=== PATIENT | female | born 1970 | race Caucasian/White ===

== ENCOUNTER 2016-07-16 03:19 | Emergency (ER) ==
[2016-07-16] MEDS ORDERED: ASPIRIN PO STA (03:36)
--- NOTE | 2016-07-16 03:42 | PROVIDER DOCUMENTATION ---
HPI-Chest Pain - General Chief Complaint: Chest Pain Stated Complaint: CHEST PAIN Time Seen by Provider: 07/16/16 03:23 Source: patient Allergies/Adverse Reactions: Patient Allergies Allergy/AdvReac Type Severity Reaction Status Date / Time No Known Allergies Allergy Verified 05/02/16 14:32 Home Medications: Cholecalciferol (Vitamin D3) [Vitamin D3] 800 unit PO DAILY 05/02/16 Clonazepam [Klonopin] 1 mg PO BID 05/02/16 Cyclobenzaprine [Flexeril] 10 mg PO HS 05/02/16 Dextroamphetamine/Amphetamine [Adderall 20 mg Tablet] 1 tab PO BID 05/02/16 Escitalopram [Lexapro] 20 mg PO DAILY 05/02/16 Fluticasone 50 Mcg Nasal [place] [Flonase] 1 puff INH PRN PRN 05/02/16 Gabapentin [Neurontin] 300 mg PO TID 05/02/16 Omeprazole [Prilosec] 20 mg PO DAILY@0700 05/02/16 Pramoxine HCl [Proctofoam] 1 appful ORDERED DIRECTED 05/02/16 - History of Present Illness-CP Nature of Presenting Problem: pt states she has had a dry hacky cough for about a week that hurt s her chest then tonight developed left arm pain and feeling like she could not get enough air. She has felt mildly nauseous but not currently. She has had subjective fevers. She also reports pain between her shoulder blades. Review of Systems - Adult - REVIEW OF SYSTEMS - ADULT Constitutional: reports: fever (subjective) Eyes: denies: dry eyes Ears, Nose, Mouth & Throat: denies: ear pain, sinus problem, throat pain Cardiovascular: reports: see HPI. denies: edema, irregular heart rate, orthopnea, palpitations, syncope Respiratory: reports: cough, shortness of breath. denies: excessive sputum production, pleurisy, wheezing Gastrointestinal: reports: nausea. denies: abdominal pain, diarrhea, vomiting Genitourinary: denies: dysuria, frequency, flank pain Musculoskeletal: reports: back pain (chronic lower back) Integumentary: denies: rash Neurological: denies: headache/migraines, numbness, paresthesia All Other Systems: Reviewed and Negative Past History - Adult - PAST MEDICAL HISTORY-ADULT Review of Records: reports: Old Records Reviewed, Nursing Assessment Review, Medications Reviewed, Social history reviewed & non-contributory. Obstetrical/Gynecological: reports: ovarian cysts Musculoskeletal: reports: other (herniated disk) - PRIOR SURGERIES/PROCEDURES Surgical/Procedure History: reports: hysterectomy, BTL, , other (cyst removed) - IMMUNIZATION STATUS Childhood Immunizations: See Nurse Assessment Flu Vaccine: See Nurse Assessment - FAMILY HISTORY Family History: reviewed, not pertinent Physical Exam-General - PHYSICAL EXAM-ADULT Initial Vital Signs Reviewed: Yes - CONSTITUTIONAL General Appearance: appears well, alert, no apparent distress - EYES Eyes: pink conjunctivae. negative: scleral icterus - HEAD, EARS, NOSE, MOUTH & THROAT HENMT: normocephalic/atraumatic - NECK Neck: non-tender, full range of motion, supple, normal inspection. negative: lymphadenopathy - RESPIRATORY Respiratory: chest non-tender, lungs clear, normal breath sounds, no pleuratic chest pain, no respiratory distress, no accessory muscle use - CARDIOVASCULAR Cardiovascular: regular rate, rhythm, no edema, no murmur - GASTROINTESTINAL (ABDOMEN) Abdominal Exam: normal bowel sounds, non tender, soft, no organomegaly, no pulsatile mass, other (obese) - MUSCULOSKELETAL Back Exam: normal inspection, no CVA tenderness, no vertebral tenderness Extremity: non-tender, normal inspection, no pedal edema, no calf tenderness - SKIN Integumentary: normal color, normal turgor, warm/dry - NEUROLOGIC Neurologic: grossly normal, no motor/sensory deficits - PSYCHIATRIC Psych/Mental Status: normal mood/affect, normal thought content, normal thought process, oriented x 3 Progress - PLAN OF CARE/RESULTS Progress/Plan/Lab Results: Laboratory Tests 07/16/16 07/16/16 07/16/16 03:25 03:25 03:25 WBC RBC Hgb Hct MCV MCH MCHC RDW Std Deviation Plt Count MPV Immature Gran % (Auto) Neut % (Auto) Lymph % (Auto) [place] % (Auto) Eos % (Auto) Baso % (Auto) Immature Gran # (Auto) Neut # (Auto) Lymph # (Auto) [place] # (Auto) Eos # (Auto) Baso # (Auto) PT INR APTT (Factor Assay) D-Dimer Sodium 137 Potassium 3.7 Chloride 100 Carbon Dioxide 27 Anion Gap 11 BUN 12 Creatinine 0.9 Estimated GFR/1.73 m2 > 60 BUN/Creatinine Ratio 13 Glucose 91 Calculated Osmolality 273 Calcium 9.3 Magnesium 2.0 Total Bilirubin 0.30 AST 17 ALT 22 Alkaline Phosphatase 72 Creatine Kinase 40 Troponin T < 0.010 Oxs-R-Yswmvupbsar Pept 53 Total Protein 7.3 Albumin 4.4 Globulin 3.0 Albumin/Globulin Ratio 2.0 07/16/16 07/16/16 07/16/16 03:25 03:25 05:24 WBC 14.35 H RBC 5.03 Hgb 15.0 Hct 45.5 MCV 90.5 MCH 29.8 MCHC 33.0 RDW Std Deviation 13.1 Plt Count 357 MPV 9.9 Immature Gran % (Auto) 1.0 H Neut % (Auto) 55.1 Lymph % (Auto) 33.7 [place] % (Auto) 9.2 Eos % (Auto) 0.7 Baso % (Auto) 0.3 Immature Gran # (Auto) 0.14 H Neut # (Auto) 7.92 H Lymph # (Auto) 4.83 H [place] # (Auto) 1.32 H Eos # (Auto) 0.10 Baso # (Auto) 0.04 PT 12.3 INR 0.88 APTT (Factor Assay) 30.0 D-Dimer < 0.22 L Sodium Potassium Chloride Carbon Dioxide Anion Gap BUN Creatinine Estimated GFR/1.73 m2 BUN/Creatinine Ratio Glucose Calculated Osmolality Calcium Magnesium Total Bilirubin AST ALT Alkaline Phosphatase Creatine Kinase 43 Troponin T Thh-I-Pvtfeiyqsuu Pept Total Protein Albumin Globulin Albumin/Globulin Ratio 07/16/16 05:24 WBC RBC Hgb Hct MCV MCH MCHC RDW Std Deviation Plt Count MPV Immature Gran % (Auto) Neut % (Auto) Lymph % (Auto) [place] % (Auto) Eos % (Auto) Baso % (Auto) Immature Gran # (Auto) Neut # (Auto) Lymph # (Auto) [place] # (Auto) Eos # (Auto) Baso # (Auto) PT INR APTT (Factor Assay) D-Dimer Sodium Potassium Chloride Carbon Dioxide Anion Gap BUN Creatinine Estimated GFR/1.73 m2 BUN/Creatinine Ratio Glucose Calculated Osmolality Calcium Magnesium Total Bilirubin AST ALT Alkaline Phosphatase Creatine Kinase Troponin T < 0.010 Fdz-A-Cyshcmavudi Pept Total Protein Albumin Globulin Albumin/Globulin Ratio Orders Category Date Time Status Cardiac Monitoring DIRECTED Care 07/16/16 03:36 Active Saline Loc NOW Care 07/16/16 03:36 Active CHEST-2 VIEWS [RAD] Stat Exams 07/16/16 03:36 Taken CBC WITH ELECTRONIC DIFF [HEME] Stat Lab 07/16/16 03:25 Completed CK PROFILE [SP CHEM] Stat Lab 07/16/16 03:25 Completed CK PROFILE [SP CHEM] Stat Lab 07/16/16 05:24 Completed COMPREHENSIVE METABOLIC PANEL [CHEM] Stat Lab 07/16/16 03:[address] D-DIMER [address] [COAG] Stat Lab 07/16/16 03:25 Completed MAGNESIUM [CHEM] Stat Lab 07/16/16 03:25 Completed PRO B-NATRIURETIC PEPTIDE Stat Lab 07/16/16 03:[address]IME WITH INR PL [COAG] Stat Lab 07/16/16 03:[address] [COAG] Stat Lab 07/16/16 03:25 Completed TROPONIN T Stat Lab 07/16/16 03:25 Completed TROPONIN T Stat Lab 07/16/16 05:24 Completed Aspirin Med 07/16/16 03:36 Discontinued 325 mg PO STAT STA Codeine/Promethazine [Phenergan with Codeine Liquid] Med 07/16/16 05:55 Discontinued 10 ml PO NOW ONE EKG [EKG] Stat Ther 07/16/16 05:28 Ordered Vital Signs Temp Pulse Resp BP Pulse Ox 07/16/16 03:25 98.2 F 102 H 18 136/108 99 No Known Allergies Allergy (Verified 05/02/16 14:32) Cholecalciferol (Vitamin D3) [Vitamin D3] 800 unit PO DAILY 05/02/16 Clonazepam [Klonopin] 1 mg PO BID 05/02/16 Cyclobenzaprine [Flexeril] 10 mg PO HS 05/02/16 Dextroamphetamine/Amphetamine [Adderall 20 mg Tablet] 1 tab PO BID 05/02/16 Escitalopram [Lexapro] 20 mg PO DAILY 05/02/16 Fluticasone 50 Mcg Nasal [place] [Flonase] 1 puff INH PRN PRN 05/02/16 Gabapentin [Neurontin] 300 mg PO TID 05/02/16 Omeprazole [Prilosec] 20 mg PO DAILY@0700 05/02/16 Pramoxine HCl [Proctofoam] 1 appful ORDERED DIRECTED 05/02/16 Laboratory 07/16/16 07/16/16 07/16/16 05:24 05:24 03:25 WBC RBC Hgb Hct MCV MCH MCHC RDW Std Deviation Plt Count MPV Immature Gran % (Auto) Neut % (Auto) Lymph % (Auto) [place] % (Auto) Eos % (Auto) Baso % (Auto) Immature Gran # (Auto) Neut # (Auto) Lymph # (Auto) [place] # (Auto) Eos # (Auto) Baso # (Auto) PT 12.3 INR 0.88 APTT (Factor Assay) 30.0 D-Dimer < 0.22 L Sodium Potassium Chloride Carbon Dioxide Anion Gap BUN Creatinine Estimated GFR/1.73 m2 BUN/Creatinine Ratio Glucose Calculated Osmolality Calcium Magnesium Total Bilirubin AST ALT Alkaline Phosphatase Creatine Kinase 43 Troponin T < 0.010 Jbq-Z-Thawafapdkq Pept Total Protein Albumin Globulin Albumin/Globulin Ratio 07/16/16 07/16/16 07/16/16 03:25 03:25 03:25 WBC 14.35 H RBC 5.03 Hgb 15.0 Hct 45.5 MCV 90.5 MCH 29.8 MCHC 33.0 RDW Std Deviation 13.1 Plt Count 357 MPV 9.9 Immature Gran % (Auto) 1.0 H Neut % (Auto) 55.1 Lymph % (Auto) 33.7 [place] % (Auto) 9.2 Eos % (Auto) 0.7 Baso % (Auto) 0.3 Immature Gran # (Auto) 0.14 H Neut # (Auto) 7.92 H Lymph # (Auto) 4.83 H [place] # (Auto) 1.32 H Eos # (Auto) 0.10 Baso # (Auto) 0.04 PT INR APTT (Factor Assay) D-Dimer Sodium Potassium Chloride Carbon Dioxide Anion Gap BUN Creatinine Estimated GFR/1.73 m2 BUN/Creatinine Ratio Glucose Calculated Osmolality Calcium Magnesium Total Bilirubin AST ALT Alkaline Phosphatase Creatine Kinase Troponin T < 0.010 Ryv-U-Dcqgxaiymop Pept 53 Total Protein Albumin Globulin Albumin/Globulin Ratio 07/16/16 03:25 WBC RBC Hgb Hct MCV MCH MCHC RDW Std Deviation Plt Count MPV Immature Gran % (Auto) Neut % (Auto) Lymph % (Auto) [place] % (Auto) Eos % (Auto) Baso % (Auto) Immature Gran # (Auto) Neut # (Auto) Lymph # (Auto) [place] # (Auto) Eos # (Auto) Baso # (Auto) PT INR APTT (Factor Assay) D-Dimer Sodium 137 Potassium 3.7 Chloride 100 Carbon Dioxide 27 Anion Gap 11 BUN 12 Creatinine 0.9 Estimated GFR/1.73 m2 > 60 BUN/Creatinine Ratio 13 Glucose 91 Calculated Osmolality 273 Calcium 9.3 Magnesium 2.0 Total Bilirubin 0.30 AST 17 ALT 22 Alkaline Phosphatase 72 Creatine Kinase 40 Troponin T Kzj-I-Gcmiiscnjrl Pept Total Protein 7.3 Albumin 4.4 Globulin 3.0 Albumin/Globulin Ratio 2.0 - EKG 1 Time of EKG reading by physician:: 03:25 EKG Interpretation (*Must complete 3 of following elements*): Abnormal Rate: 111 Rhythm: sinus tach [place]: normal QRS: poor R wave progression NE Interval: normal ST Wave: normal Departure - Departure Time of Disposition Order: 05:56 DIAGNOSIS: URI (upper respiratory infection) Qualifiers: URI type: unspecified viral URI Qualified Code(s): J06.9 - Acute upper respiratory infection, unspecified; B97.89 - Other viral agents as the cause of diseases classified elsewhere Disposition: HOME 01 Certified Medical Emergency: Emergent Condition: Good Additional Instructions: ED Follow Up Instructions: You have been treated by a care provider in the Emergency Department. These instructions are being provided to you so you can have an understanding of how to care for yourself upon discharge. Upon discharge from the Emergency Department, you are responsible for making arrangements for follow-up care by a physician of your choice. Take all prescribed medications as directed. Return to the Emergency Department immediately for any new or worsening symptoms. You may call the Physician Referral phone number at [phone] to obtain a list of Physicians who are taking new patients. Prescriptions: Codeine/Promethazine [Phenergan with Codeine] 10 ml PO TID PRN PRN #120 ml PRN Reason: Cough
[2016-07-16 03:43] LABS: MANUAL DIFF NEEDED? NO
[2016-07-16 04:02] LABS: BASO% 0.3 % (0.0-0.8); EOS% 0.7 % (0.0-10.0); HEMATOCRIT 45.5 % (37.0-47.0); IMM GRAN# 0.14 X1000 (0.0-0.04); LYMPH# 4.83 X1000 (1.2-3.4); LYMPH% 33.7 % (20.5-51.1); MCH 29.8 PG (27-31); MCV 90.5 FL (81-99); MONO# 1.32 X1000 (0.11-0.59); MONO% 9.2 % (1.7-9.3); MPV 9.9 FL (7.4-10.4); NEUT% 55.1 % (42.2-75.2); PLT 357 X1000 (130-400); RBC 5.03 XMIL (4.2-5.4)
[2016-07-16 04:03] LABS: INR 0.88 (0.86-1.15); PROTIME 12.3 Seconds (12.1-15.5)
[2016-07-16 04:08] LABS: AGAP 11; ALBUMIN 4.4 g/dL (3.5-5.0); ALKALINE PHOSPHATASE 72 U/L (32-104); BUN 12 mg/dL (8-22); CALCIUM 9.3 mg/dL (8.8-10.2); CHLORIDE 100 mmol/L (98-107); CK PROFILE 40 U/L (24-173); COSMO 273; GOT 17 U/L (10-30); GPT 22 U/L (10-36); POTASSIUM 3.7 mmol/L (3.5-5.1); SODIUM 137 mmol/L (136-145); TCO2 27 mmol/L (25-35); TOTAL PROTEIN 7.3 g/dL (6.3-8.3)
[2016-07-16] MEDS ORDERED: PHENERGAN WITH CODEINE LIQUID PO ONE (05:55)
--- NOTE | 2016-07-16 06:08 | EKG Report ---
Test Performed on : 07/16/2016 03:25:39 AM Test Reason : ER10 Blood Pressure : / mmHG Vent. Rate : 111 BPM Atrial Rate : 111 BPM P-R Int : 138 ms QRS Dur : 072 ms QT Int : 306 ms P-R-T Axes : 046 048 047 degrees QTc Int : 416 ms Sinus tachycardia. Septal infarct , age undetermined Abnormal ECG No previous ECGs available Unconfirmed Result
[2016-07-16 06:16] VITALS: BP 105/072
--- NOTE | 2016-07-16 11:36 | Diag Imaging Result Document ---
PROCEDURE NAME: CHEST-2 VIEWS - 07/16/2016 PA AND LATERAL RADIOGRAPH OF THE CHEST: COMPARISON: None available. FINDINGS: The lungs are grossly clear. There is no discrete pleural fluid collection or evidence of pneumothorax. The cardiomediastinal silhouette and upper airway are grossly unremarkable. IMPRESSION: No evidence of acute chest pathology.
== END 2016-07-16 06:15 | disposition home or self-care (01) ==
LOC: P.ED 03:19
DX: J06.9 Acute upper respiratory infection, unspecified (principal); R05 Cough; R94.31 Abnormal electrocardiogram [ECG] [EKG]; R50.9 Fever, unspecified; R06.02 Shortness of breath; R11.0 Nausea; M54.9 Dorsalgia, unspecified; G89.29 Other chronic pain; Z87.42 Personal history of other diseases of the female genital tract; M51.26 Other intervertebral disc displacement, lumbar region; Z79.899 Other long term (current) drug therapy; Z79.51 Long term (current) use of inhaled steroids
CPT/HCPCS: 36415; 71020; 80053; 82550; 83735; 83880; 84484; 85025; 85379; 85610; 85730; 93005; 99284

== ENCOUNTER 2018-12-18 17:43 | Inpatient (IN) ==
[2018-12-18] MEDS ORDERED: DIPRIVAN 1% 1,000 MG/100 ML BOTTLE ONE (17:49)
[2018-12-18] MEDS ORDERED: QUELICIN ONE (17:50)
[2018-12-18] MEDS ORDERED: AMIDATE ONE (17:50)
[2018-12-18] MEDS ORDERED: NS 1,000 ML ONE ×2 (17:52→17:54)
[2018-12-18] MEDS ORDERED: NS 1,000 ML IV ONE (18:03)
[2018-12-18 18:23] LABS: BE -3.7 mmoll (-3.0-3.0); BLOOD TYPE ARTERIAL; METHB 1.2 % (0.0-1.5); O2(CT) 18.8 mL/dL (15.0-23.0); O2HB 95.4 % (95.0-99.0); PO2(98.6) 88 mmHg (60-100); SAMPLE BLOOD; SAO2 97.9 % (95.0-100.0); SRATE 15 BPM; TVOL 450 mL
[2018-12-18 18:24] LABS: URINE SOURCE CATH
[2018-12-18 18:24] LABS: ALLEN TEST YES
[2018-12-18 18:31] LABS: MODALITY VENTILATOR; PCO2(98.6) 68 mmHg (35-45); pH(98.6) 7.19 (7.35-7.45)
[2018-12-18 18:53] LABS: BILIRUBIN URINE NEGATIVE (NEGATIVE); BLOOD URINE NEGATIVE (NEGATIVE); COLOR YELLOW; GLUCOSE URINE >1000 mg/dL (NEGATIVE); KETONE URINE NEGATIVE (NEGATIVE); LEUKOCYTES URINE NEGATIVE (NEGATIVE); NITRITE URINE NEGATIVE (NEGATIVE); PROTEIN URINE 30 mg/dL (NEGATIVE); SP GRAVITY URINE 1.015; TURBIDITY URINE CLEAR (CLEAR); UROBILINOGEN URINE NORMAL (NORMAL)
[2018-12-18 18:54] LABS: UR EPITHELIAL CELLS <10 /HPF (<10); URINE BACTERIA NEGATIVE /HPF; URINE RBC <10 /HPF (<10); URINE WBC <10 /HPF (<10)
[2018-12-18 18:56] LABS: BASO# 0.04 X1000 (0.0-0.2); BASO% 0.2 % (0.0-0.8); EOS# 0.04 X1000 (0.0-0.7); EOS% 0.2 % (0.0-10.0); HEMATOCRIT 43.4 % (37.0-47.0); HEMOGLOBIN 14.1 g/dL (12.0-16.0); IMM GRAN# 0.63 X1000 (0.0-0.04); IMM GRAN% 2.8 % (0.0-0.5); LYMPH# 1.81 X1000 (1.2-3.4); LYMPH% 7.9 % (20.5-51.1); MCH 29.6 PG (27-31); MCHC 32.5 g/dL (33-37); MONO# 2.79 X1000 (0.11-0.59); MONO% 12.2 % (1.7-9.3); NEUT# 17.56 X1000 (1.4-6.5); NEUT% 76.7 % (42.2-75.2); PLT 400 X1000 (130-400); RBC 4.77 XMIL (4.2-5.4); RDW 12.8 % (11.5-14.5); WBC 22.87 X1000 (4.8-10.8)
[2018-12-18 19:51] LABS: ALB/GLOB RATIO 1.7; ALBUMIN 3.9 g/dL (3.5-5.0); CALCIUM 8.1 mg/dL (8.8-10.2); CREATININE 1.2 mg/dL (0.5-0.9); POTASSIUM 3.7 mmol/L (3.5-5.1); TOTAL BILIRUBIN 0.34 mg/dL (0.20-1.00); TOTAL PROTEIN 6.2 g/dL (6.3-8.3)
[2018-12-18] MEDS ORDERED: ROCEPHIN 1 GM in NS 50 ML IV ONE (19:52)
--- NOTE | 2018-12-18 20:48 | Diag Imaging Result Doc PS360 ---
EXAM: CT HEAD W/O CONTRAST INDICATION: found unresponsive TECHNIQUE: This exam was performed using automated exposure control, adjustment of mA or kV according to patient size, and/or use of iterative reconstruction technique. COMPARISON: None. FINDINGS: There is no definite acute infarct given the limited sensitivity of CT versus MRI. There is no discrete intracranial mass, mass effect, or intracranial hemorrhage. The surrounding soft tissues and bony structures are essentially unremarkable. IMPRESSION: No evidence of acute intracranial pathology. Electronically signed by Lucio Porras 12/18/2018 8:46 PM
[2018-12-18] MEDS ORDERED: D50W SYRINGE IV ONE ×2 (20:53→21:30)
[2018-12-18 21:41] LABS: ALLEN TEST YES; BE -3.8 mmoll (-3.0-3.0); BLOOD TYPE ARTERIAL; METHB 0.9 % (0.0-1.5); O2(CT) 19.4 mL/dL (15.0-23.0); O2HB 97.5 % (95.0-99.0); PCO2(98.6) 39 mmHg (35-45); PO2(98.6) 189 mmHg (60-100); SAMPLE BLOOD; SAO2 99.9 % (95.0-100.0); SRATE 22 BPM; THB 13.9 g/dL (11.5-17.4); TVOL 550 mL; pH(98.6) 7.35 (7.35-7.45)
[2018-12-18 21:42] LABS: MODALITY VENTILATOR
[2018-12-18 21:56] LABS: UR AMPHETAMINES QUAL NONE DETECTED (NONE DETECT); UR BARBITUATES QUAL NONE DETECTED (NONE DETECT); UR BENZODIAZEPIN QUAL PRESUMPTIVE POSITIVE (NONE DETECT); UR CANNABINOIDS QUAL NONE DETECTED (NONE DETECT); UR COCAINE QUAL NONE DETECTED (NONE DETECT); UR METHADONE QUAL NONE DETECTED (NONE DETECT); UR OPIATES QUAL NONE DETECTED (NONE DETECT); UR OXYCODONE QUAL PRESUMPTIVE POSITIVE (NONE DETECT); UR PCP QUAL NONE DETECTED (NONE DETECT)
[2018-12-18] MEDS ORDERED: SODIUM CHLORIDE 0.9% INJ SCH (22:00)
[2018-12-18] MEDS: LOVENOX SUBQ SCH (23:01)
[2018-12-18] MEDS: ZOSYN 3.375 GM in NS 50 ML IV SCH (23:01)
[2018-12-18] MEDS: PROTONIX IV SCH (23:01)
[2018-12-18] MEDS: ZYVOX 600 MG/D5W 600 MG/300 ML IVPB IV SCH (23:02)
[2018-12-18] MEDS: NS 1,000 ML IV SCH (23:02)
[2018-12-18] MEDS: DUONEB (A & A) INH SCH (23:30)
--- NOTE | 2018-12-18 23:53 | HISTORY AND PHYSICAL ---
CHIEF COMPLAINT: Altered mental status. HISTORY OF PRESENT ILLNESS: Mrs. Binta Horn is a 48-year-old female who has a history of back pain and was found unresponsive at home on the bed by earlier on today, between 3 and 5 p.m. The patient was subsequently brought to the emergency room. CT scan of the brain was noted to be unremarkable for any acute lesions. Her white count was elevated at 22.87. Initial pH shows that of 7.19. The patient was intubated and placed on mechanical ventilation. Urine drug screen was positive for oxycodone as well as benzodiazepines. No information could be obtained from the patient. PAST MEDICAL HISTORY: Back pain. ALLERGIES: No known drug allergies. PAST SURGICAL HISTORY: She has had a hysterectomy. SOCIAL HISTORY: No cigarette smoking, alcohol, or drug use. MEDICATIONS: 1. Vitamin D 400 units as directed. 2. Klonopin 1 mg as directed. 3. Codeine/promethazine 5 mL as directed. 4. Cyclobenzaprine 10 mg p.o. as directed. 5. Dextroamphetamine/amphetamine 20 mg as directed. 6. Lexapro 20 mg p.o. as directed. 7. Flonase as directed. 8. Gabapentin 300 mg as directed. 9. Omeprazole 20 mg as directed. 10. Pramoxine 15 g as directed. REVIEW OF SYSTEMS: Could not be obtained from the patient. PHYSICAL EXAMINATION: VITAL SIGNS ARE FOLLOWS: Temperature 98.1 degrees, pulse 122, respirations 14, blood pressure 131/78, oxygen saturation 100%. HEENT: Atraumatic, normocephalic. She is anicteric. Pupils are equal, poorly reactive to light. NECK: No lymphadenopathy or thyromegaly. She does have an NG tube as well as an ET tube. CARDIOVASCULAR: S1, S2. RESPIRATORY: Has evidence of good entry bilaterally. ABDOMEN: Soft, nontender. No masses felt. EXTREMITIES: No evidence of edema. CENTRAL NERVOUS SYSTEM: The patient is currently intubated as well as sedated. LABORATORY DATA: WBC is 22.87, hematocrit is 43.2, platelet count of 400,000. ABG with pH 7.19, 68, 88, O2 saturation of 97.9%. Sodium is 140, potassium 3.7, chloride is 105, bicarb 27, BUN is 12, creatinine 1.2. AST is 60, ALT 58. ProBNP 1380. Urine drug screen positive for oxycodone as well as benzodiazepine. Head CT, no acute intracranial process. ASSESSMENT AND PLAN: This is a 48-year-old female who was found unresponsive at home, was subsequently brought to the emergency room. CT scan of the brain unremarkable for any acute lesions. 1. Encephalopathy. Query etiology. Rule out toxic. The patient's drug screen positive for oxycodone as well as benzodiazepines. Infectious etiology is also possible in light of raised white count and also raised lactate level. In the meantime, we will obtain an MRI of the brain, EEG, ammonia level, as well as a thyroid function test. Consult with Neurology. 2. Probable sepsis. Maintain patient on intravenous fluids. Obtain cultures and place patient on broad-spectrum antibiotics. 3. Respiratory failure. Maintain patient on ventilator support. Ventilator changes per recommendation of the Pulmonary team. Use of propofol for sedation. 4. Elevated troponin. This may be related to demand ischemia, however, cannot rule out non-ST segment elevation myocardial infarction. Will consult with Cardiology. 5. Raised proBNP level. Obtain 2D echo of the heart to assess current ejection fraction. 6. Abnormal liver function test. Check hepatitis panel, TEO level, ferritin level as well as abdominal ultrasound. 7. Deep vein thrombosis prophylaxis. The patient is on Lovenox. 8. Gastrointestinal prophylaxis. Proton pump inhibitor. cc: Shahzad Herman MD
[2018-12-19] MEDS: DIPRIVAN 1% 1,000 MG/100 ML BOTTLE IV SCH ×3 (00:28→09:35)
[2018-12-19] MEDS: ZOSYN 3.375 GM in NS 50 ML IV SCH ×4 (02:55→22:40)
[2018-12-19 04:35] LABS: BLOOD TYPE ARTERIAL; SAMPLE BLOOD
[2018-12-19 04:36] LABS: ALLEN TEST YES; BE 0.2 mmoll (-3.0-3.0); HCO3-(ACT) 25.1 mmoll (20.0-26.0); METHB 1.1 % (0.0-1.5); O2HB 96.8 % (95.0-99.0); PCO2(98.6) 34 mmHg (35-45); PO2(98.6) 117 mmHg (60-100); SAO2 99.1 % (95.0-100.0); SRATE 18 BPM; THB 14.6 g/dL (11.5-17.4); TVOL 550 mL; pH(98.6) 7.45 (7.35-7.45)
[2018-12-19 04:38] LABS: MODALITY VENTILATOR
[2018-12-19 05:01] LABS: BASO# 0.02 X1000 (0.0-0.2); BASO% 0.1 % (0.0-0.8); HEMATOCRIT 39.4 % (37.0-47.0); HEMOGLOBIN 13.2 g/dL (12.0-16.0); IMM GRAN# 0.07 X1000 (0.0-0.04); IMM GRAN% 0.4 % (0.0-0.5); LYMPH# 2.15 X1000 (1.2-3.4); LYMPH% 12.6 % (20.5-51.1); MCH 29.4 PG (27-31); MCHC 33.5 g/dL (33-37); MCV 87.8 FL (81-99); MONO# 1.83 X1000 (0.11-0.59); MONO% 10.7 % (1.7-9.3); MPV 11.1 FL (7.4-10.4); NEUT# 13.06 X1000 (1.4-6.5); NEUT% 76.2 % (42.2-75.2); PLT 311 X1000 (130-400); RBC 4.49 XMIL (4.2-5.4); RDW 12.5 % (11.5-14.5); WBC 17.13 X1000 (4.8-10.8)
[2018-12-19 05:37] LABS: AGAP 11; ALB/GLOB RATIO 1.2; ALBUMIN 3.2 g/dL (3.5-5.0); ALKALINE PHOSPHATASE 65 U/L (32-104); BUN 13 mg/dL (8-22); CALCIUM 8.2 mg/dL (8.8-10.2); CHLORIDE 103 mmol/L (98-107); CHOLESTEROL 132 mg/dL (0-200); COSMO 272; CREATININE 0.8 mg/dL (0.5-0.9); ESTIMATED GFR > 60; GLUCOSE 105 mg/dL (70-104); GOT 60 U/L (10-30); GPT 53 U/L (10-36); HDL 39 mg/dL (45-65); LDL 54 mg/dL; POTASSIUM 4.7 mmol/L (3.5-5.1); SODIUM 136 mmol/L (136-145); TCO2 22 mmol/L (25-35); TOTAL BILIRUBIN 0.57 mg/dL (0.20-1.00); TOTAL PROTEIN 5.8 g/dL (6.3-8.3); TRIGLYCERIDES 193 mg/dL (35-135); VLDL 39 mg/dL
--- NOTE | 2018-12-19 07:42 | Diag Imaging Result Doc PS360 ---
CHEST-1 VIEW - 12/19/2018 INDICATION: sepsis COMPARISON: 12/18/2018 FINDINGS: Stable endotracheal tube at about T1-T2. Stable nasogastric tube in good position in the stomach. Stable low lung volumes. Stable cardiomegaly. Slight worsening hazy infiltrate in the left lung base. IMPRESSION: Slight worsening hazy infiltrate in the left lung base. Electronically signed by Sachin Ta 12/19/2018 7:39 AM
[2018-12-19] MEDS: DUONEB (A & A) INH SCH ×5 (07:47→23:50)
--- NOTE | 2018-12-19 08:55 | Diag Imaging Result Doc PS360 ---
EXAM: CHEST-PORTABLE INDICATION: respiratory distress, wheezing TECHNIQUE: 2 views COMPARISON: 07/16/2016 FINDINGS: The NG tube projects well below the diaphragm and is assumed to be in the lumen of the stomach in expected position. The newly placed ET tube tip projects over the trachea at about the thoracic inlet. Consider advancing 3 to 4 cm. The lungs are grossly clear. There is no discrete pleural fluid collection or pneumothorax. The cardiomediastinal silhouette and central vasculature are grossly unremarkable. IMPRESSION: 1.ET tube tip near the thoracic inlet. Consider advancing 3 to 4 cm. 2.NG tube in expected position. 3.No definite acute chest pathology by plain radiograph. Electronically signed by Lucio Porras 12/18/2018 8:44 PM
[2018-12-19] MEDS: ASPIRIN NG SCH (09:51)
[2018-12-19] MEDS: LOVENOX SUBQ SCH ×2 (09:51→22:55)
[2018-12-19 10:26] LABS: ALLEN TEST YES; BLOOD TYPE ARTERIAL; HCO3-(ACT) 24.9 mmoll (20.0-26.0); METHB 0.8 % (0.0-1.5); O2(CT) 18.4 mL/dL (15.0-23.0); O2HB 97.4 % (95.0-99.0); PCO2(98.6) 49 mmHg (35-45); PO2(98.6) 111 mmHg (60-100); SAMPLE BLOOD; SAO2 100.1 % (95.0-100.0); THB 13.3 g/dL (11.5-17.4); pH(98.6) 7.34 (7.35-7.45)
[2018-12-19 10:29] LABS: MODALITY VENTILATOR
[2018-12-19] MEDS: ZYVOX 600 MG/D5W 600 MG/300 ML IVPB IV SCH (10:58)
[2018-12-19] MEDS: NS 1,000 ML IV SCH ×2 (11:00→18:07)
--- NOTE | 2018-12-19 12:48 | CONSULTATION ---
DATE OF CONSULTATION: 12/19/2018 HISTORY OF PRESENT ILLNESS: Ms. Horn is 48 years old and she was reportedly found unresponsive by family, brought to the emergency room, evaluated and admitted. I have reviewed the history recorded on admission. I did not think it prudent for me to question Ms. Horn directly on my rounds today in light of the different family members present at the bedside. She initially required intubation and mechanical ventilation, and was sedated with propofol. When propofol was discontinued, she became rapidly awake and alert. There was never any focal neurologic finding. LABS AND X-RAYS: Noncontrast CT of the head was unremarkable. Lab showed initial WBC 23,000, later 17,000. Blood sugar was recorded 42 and then 105. Liver enzymes are elevated. PCO2 was initially 68, later 34. Urine drug screen was positive for oxycodone and for benzodiazepines. She has a prescription for clonazepam and has been using that chronically. Home medication list also includes Adderall, but urine drug screen was negative for amphetamine. Her home medication list includes codeine cough syrup, but no other opiate and specifically no oxycodone. State PDMP [place] not show any opiate prescriptions, including no prescription for codeine cough syrup, in the past year. I believe that EEG and MRI are planned. PHYSICAL EXAMINATION: On my exam, she is awake, alert, attentive, oriented and appropriate. Speech is not dysarthric. Language function is intact on bedside testing. Recent and remote memory are good. I did not test her cognitive function further. Head and neck are unremarkable. There is no meningismus. She has full visual chandler tested grossly by confrontational finger counting. Extraocular movements are full. Pupils react to light. Facial motility is symmetric. Facial sensation is intact. Tongue is midline. Shoulder shrug is good. Strength is normal in the arms and legs. Limb tone is symmetric. Plantar response is silent bilaterally. Reflexes are 2+ at the ankles and 3+ at knees bilaterally. She reports diminished pinprick appreciation diffusely, but she has good light touch appreciation over all limbs. Proprioception is good at the great toe MTP joint bilaterally. IMPRESSION: Transient altered awareness, uncertain etiology. This may have been drug effect. Elevated liver enzymes makes me wonder if some of this might be chronic. Again, I did not ask her specifically about prescription and/or illicit drug use. In light of her quick recovery and normal neurologic appearance now, I do not think we need to do anything urgently. If there are no surprises on the already-ordered workup, I will not have any new suggestion from Neurology standpoint. Thanks for asking Neurology to see Ms. Horn. cc: MD FAVIOLA Acuna III
--- NOTE | 2018-12-19 13:14 | CONSULTATION ---
DATE OF CONSULTATION: 12/19/2018 IMPRESSION: 1. Slight nonspecific elevation in troponin in setting of respiratory failure. Doubt acute coronary syndrome, and I suspect slight elevation in troponin more likely related to hypoxemic respiratory failure requiring intubation related to excessive sedative medications, although sepsis is not excluded. 2. Suspected sepsis. 3. Chronic pain syndrome with chronic back discomfort. RECOMMENDATIONS: 1. Echocardiography. 2. Consider future screen for coronary disease in light of clinical presentation. However, clinical presentation very typical for coronary syndrome and more likely related to hypoxemic respiratory failure of noncardiac etiology. HISTORY: This 48-year-old white female with past history of chronic back disorder and chronic back pain was recently admitted after being found unresponsive at home. She is described as having very slow shallow respirations. EMS was summoned. She required intubation. Patient has little recollection of what actually went on. There has been no chest pain. She had CT of the brain which showed no acute abnormalities on noncontrasted study. White blood cell count was elevated at 22.87. She was treated with ventilator support. Initial pH was 7.19. She has just been extubated. Serial troponins were slightly elevated prompting Cardiology consultation. There is no history of coronary disease or chest pain. PAST MEDICAL HISTORY: 1. Chronic back disorder with chronic back pain. 2. Depression. 3. Obesity. 4. Gastroesophageal reflux disease. PAST SURGICAL HISTORY: Hysterectomy. ALLERGIES: She has no known drug allergies. MEDICATIONS PRIOR TO ADMISSION: As listed. SOCIAL HISTORY: She does not smoke cigarettes or use alcohol. FAMILY HISTORY: Negative for premature coronary disease. REVIEW OF SYSTEMS: Pulmonary: Noncontributory beyond history of present illness. Gastrointestinal: Noncontributory beyond history of present illness. Constitutional: Noncontributory beyond history of present illness. Remainder of review of systems negative/noncontributory beyond history of present illness with 14 total systems reviewed. PHYSICAL EXAMINATION: General: This is an obese middle-aged female in no distress. Vital signs: Blood pressure 147/104, heart rate 93, oxygen saturation 99%. HEENT exam: Extraocular movements intact. Mucous membranes are moist. Neck: Supple. No jugular venous distention. No carotid bruits. Chest: Clear to auscultation. Cardiac Exam: Reveals a regular rate and rhythm without appreciable murmur or gallop. Abdomen: Soft. Bowel sounds are normal. Extremities: Without edema. Neurologic exam: Reveals her to be awake, but mildly drowsy. She is responsive. Speech is fluent. She moves all 4 extremities equally well. PERTINENT DATA: Twelve-lead EKG demonstrates sinus tachycardia, but is otherwise within normal limits. LABORATORY DATA: Includes a white blood cell count of 17.13, hematocrit 39.4, hemoglobin 13.2, platelet count 311. Sodium 136, potassium 4.7, chloride 103, carbon dioxide 22. BUN 13, creatinine 0.8, glucose 105. Initial troponin 0.051, followup troponin 0.102, and third troponin 0.101. Initial CPK 59 with followup CPK 79. Urine drug screen positive for oxycodone and benzodiazepines. cc: Marcio Ordonez MD
--- NOTE | 2018-12-19 16:08 | Diag Imaging Result Doc PS360 ---
EXAM: US ABDOMEN-COMPLETE 12/19/2018 HISTORY: abnormal lfts TECHNIQUE: Abdominal ultrasound COMMENT: The visualized portions of the aorta and inferior vena cava are within normal limits. The liver is slightly hyperechoic. There is antegrade flow in the portal vein. There is no evidence of biliary dilatation the common bile duct measuring 4 mm. The gallbladder is clear and nontender. The spleen is not enlarged. There is no evidence of free fluid. The left kidney is not well seen. The right kidney is without evidence of hydronephrosis or mass. IMPRESSION: Limited study due to the patient's condition. Hepatic steatosis. Electronically signed by Alexis Bui 12/19/2018 4:06 PM
--- NOTE | 2018-12-19 16:23 | ECHO REPORT ---
ORDER DATE: 12/18/2018 INTERPRETING PHYSICIAN: Dr. Glover CLINICAL INDICATIONS: Sepsis. Non ST myocardial infarction. CHF. M-MODE MEASUREMENTS: Left ventricle end diastole: 4.3 cm. Left ventricle end systole: 3.1 cm. Posterior wall: 0.9 cm. Interventricular septum: 1.0 cm. SUMMARY OF 2-DIMENSIONAL IMAGIN. The left ventricular function is mild to moderately impaired. Global ejection fraction appears to be in the order of 40% to 45%. The lateral septal apical portion showed reasonably good contractility. The basal interventricular septum, mid interventricular septum is slightly hypokinetic. The basal inferior wall is akinetic as well as the distal inferior wall. This wall motion abnormality is diagnostic of coronary heart disease. 2. The right ventricle appears to be mildly enlarged. 3. The tricuspid valve shows moderate degree of regurgitation. 4. The pulmonary pressure is estimated at 28 mmHg. 5. The right ventricle being hypokinetic with tricuspid regurgitation may suggest ischemic compromise of the right ventricle. 6. The pulmonic valve appears to be grossly unremarkable. 7. The mitral valve shows mild degree of regurgitation. 8. Pulsed wave Doppler of mitral inflow shows reversal of the E and the A ratio. Ratio is 0.5. 9. Tissue Doppler of septal and lateral mitral annulus averages 3 1/2 cm. 10.Aortic valve shows normal opening of the cusps. Color flow mapping is unremarkable. 11.There is no pericardial effusion, no mass, and no thrombus. Clinical correlation is recommended. cc: MD Shahzad Perry MD
[2018-12-19] MEDS ORDERED: LABETALOL IV PRN (16:44)
[2018-12-19] MEDS ORDERED: VANCOMYCIN IV PER PHARMACY MISC SCH (16:45)
[2018-12-19] MEDS: MORPHINE IV PRN ×2 (17:01→20:46)
--- NOTE | 2018-12-19 17:02 | PROGRESS NOTE ---
DATE: 12/19/2018 SUBJECTIVE: The patient was noted to be on a weaning trial this morning and has subsequently been extubated. OBJECTIVE: Vital Signs: Temperature 97 degrees, blood pressure 165/109, heart rate 105, respirations 17, O2 saturation is 92% on a mask. General: This is a morbidly obese female lying in bed, in no acute distress. Heart: S1, S2. Normal. Lungs: Equal air entry with mild crackles. Abdomen: Positive bowel sounds. Soft, obese, nontender. Extremities: No edema. No cyanosis. Neurologic: The patient is awake. No focal neurologic deficits noted. LABS: White blood cell count 17, hemoglobin 13, hematocrit 39, platelets 311,000. Sodium 136, potassium 4.7, chloride 103, CO2 22, BUN 13, creatinine 0.8, glucose 105, calcium 8.2, AST 60, ALT 53, alkaline phosphatase 65. Chest x-ray shows a hazy infiltrate in the left base. ASSESSMENT AND PLAN: 1. Acute hypoxemic respiratory failure status post extubation. Continue with pulmonary toiletry. 2. Possible pneumonia. The patient is on broad-spectrum antibiotics. Continue with bronchodilator therapy and supplemental oxygen. Further management as per the enamel drier. 3. Toxic encephalopathy. The patient had narcotics in her urine drug tox screen. However, her family states that the patient is not on narcotics. Her mental status is slowly improving. Will continue to monitor closely. 4. Uncontrolled hypertension. We will start the patient on p.r.n. labetalol until she is able to take oral medications. 5. Morbid obesity. Aware. 6. Gastrointestinal prophylaxis. Continue on IV Protonix. 7. Deep vein thrombosis prophylaxis. The patient is currently on Lovenox. cc: Sonali Diaz MD
[2018-12-19] MEDS: VANCOMYCIN 2,000 MG in NS 500 ML IV SCH (18:05)
[2018-12-19] MEDS: APRESOLINE IV PRN (20:26)
[2018-12-19] MEDS ORDERED: NITROGLYCERIN TOP ONE (21:24)
[2018-12-19] MEDS: PROTONIX IV SCH (22:00)
--- NOTE | 2018-12-19 22:06 | PULMONOLOGY CONSULTATION ---
DATE: 12/19/2018 REASON FOR CONSULTATION: Respiratory failure requiring mechanical ventilation. HISTORY OF PRESENT ILLNESS: Ms. Horn is a 48-year-old, white female, with history of chronic pain syndrome, who was found by her children unresponsive and "gurgling." She was intubated and initiated on mechanical ventilation. The patient underwent CT scan of the brain which revealed no evidence of acute intracranial pathology. She currently has been initiated on a propofol sedation vacation by this practitioner. PAST MEDICAL HISTORY: 1. Chronic pain syndrome. 2. Morbid obesity. 3. Gastroesophageal reflux. 4. Status post hysterectomy. 5. Gastroesophageal reflux disease. 6. History of gastric ulcer disease. 7. Peripheral neuropathy. 8. Anxiety/depressive disorder. SOCIAL HISTORY: The patient is . She has a who appears attentive and is at the bedside. She has a prior history of tobacco use. REVIEW OF SYSTEMS: Cannot be obtained. PHYSICAL EXAMINATION: General: Reveals an obese white female on mechanical ventilation. She is becoming restless as her propofol is held. BP 131/98, heart rate 85, respiratory rate 18, oxygen saturation 99%. HEENT: Pupils are equal and appear reactive. Oropharynx appears clear. Neck: Supple. Chest: Reveals scattered crackles and rhonchi bilaterally. Cardiac Exam: S1-S2. Abdomen: Obese and soft. Extremities: Reveal trace to 1+ peripheral edema. LABORATORIES: Chest x-ray reveals hazy infiltrate at the left base. White blood count 17.13, hemoglobin 311. Arterial blood gas: PH 7.45, pCO2 of 34, pO2 of 117. Sodium 136, potassium 4.7, chloride 103, bicarbonate 22, BUN 13, creatinine 0.8. Urinalysis is primarily positive for 30 of protein and elevated glucose. Toxicology is positive for oxycodone and benzodiazepine. IMPRESSION: A 48-year-old female who was found unresponsive and brought to the emergency room requiring intubation and mechanical ventilation. She has a hazy infiltrate on chest x-ray along with significant leukocytosis. She appears to be improving overnight and now is arousable to alert/groggy. RECOMMENDATION: 1. Collect sputum culture for C and S. 2. Continue current antibiotic regimen. 3. Initiate spontaneous breathing trial to evaluate potential for extubation. cc: Segun Rothman MD
[2018-12-20] MEDS ORDERED: ATIVAN IV ONE (01:16)
[2018-12-20] MEDS ORDERED: MORPHINE IV ONE (01:17)
[2018-12-20] MEDS ORDERED: HALDOL IM ONE (01:17)
[2018-12-20] MEDS: MORPHINE IV PRN ×2 (01:49→07:42)
[2018-12-20] MEDS: APRESOLINE IV PRN ×3 (02:35→13:26)
[2018-12-20] MEDS: ZOSYN 3.375 GM in NS 50 ML IV SCH ×4 (04:00→21:57)
[2018-12-20] MEDS: DUONEB (A & A) INH SCH ×7 (05:02→23:07)
[2018-12-20 05:18] LABS: HEMATOCRIT 37.7 % (37.0-47.0); HEMOGLOBIN 12.4 g/dL (12.0-16.0); MCH 29.5 PG (27-31); MCHC 32.9 g/dL (33-37); MCV 89.8 FL (81-99); RBC 4.2 XMIL (4.2-5.4); RDW 12.8 % (11.5-14.5); WBC 16.66 X1000 (4.8-10.8)
[2018-12-20 05:38] LABS: ALLEN TEST YES; BE 2.2 mmoll (-3.0-3.0); BLOOD TYPE ARTERIAL; HCO3-(ACT) 26.6 mmoll (20.0-26.0); METHB 1.1 % (0.0-1.5); O2(CT) 17.2 mL/dL (15.0-23.0); O2HB 95.5 % (95.0-99.0); PCO2(98.6) 46 mmHg (35-45); PO2(98.6) 80 mmHg (60-100); SAMPLE BLOOD; SAO2 98.2 % (95.0-100.0); THB 12.8 g/dL (11.5-17.4); pH(98.6) 7.39 (7.35-7.45)
[2018-12-20 05:39] LABS: MODALITY CANNULA
[2018-12-20] MEDS: NS 1,000 ML IV SCH ×2 (05:43→13:27)
[2018-12-20 05:58] LABS: AGAP 11; BUN 6 mg/dL (8-22); CALCIUM 8.8 mg/dL (8.8-10.2); CHLORIDE 105 mmol/L (98-107); COSMO 282; CREATININE 0.6 mg/dL (0.5-0.9); ESTIMATED GFR > 60; GLUCOSE 122 mg/dL (70-104); MAGNESIUM 1.9 mg/dL (1.5-2.7); PHOSPHORUS 1.6 mg/dL (2.7-4.5); POTASSIUM 3.7 mmol/L (3.5-5.1); SODIUM 142 mmol/L (136-145); TCO2 26 mmol/L (25-35)
[2018-12-20] MEDS ORDERED: SODIUM PHOSPHATE 40 MMOL in NS 250 ML IV ONE (06:19)
[2018-12-20] MEDS: VANCOMYCIN 2,000 MG in NS 500 ML IV SCH ×2 (06:20→18:42)
--- NOTE | 2018-12-20 07:15 | Diag Imaging Result Doc PS360 ---
EXAM: CHEST-PORTABLE 12/20/2018 HISTORY: abnormal exam TECHNIQUE: AP portable at 0510 COMMENT: Compared to 12/19/2018 the endotracheal tube and NG tube have been removed. There is increased pulmonary vascular prominence. There may be mild interstitial pulmonary edema. IMPRESSION: Mild pulmonary edema. Electronically signed by Alexis Bui 12/20/2018 7:12 AM
--- NOTE | 2018-12-20 08:00 | EKG Report ---
Test Performed on : 12/19/2018 8:05:33 PM Test Reason : CHEST PAIN Blood Pressure : / mmHG Vent. Rate : 074 BPM Atrial Rate : 074 BPM P-R Int : 132 ms QRS Dur : 078 ms QT Int : 378 ms P-R-T Axes : 032 048 -03 degrees QTc Int : 419 ms Sinus rhythm. with marked sinus arrhythmia. Septal infarct , age undetermined Abnormal ECG No previous ECGs available Confirmed by Rajeev CHILDERS, Flavio Singleton ([id number]) on 12/20/2018 4:19:31 PM
[2018-12-20] MEDS: ASPIRIN NG SCH (09:55)
[2018-12-20] MEDS: LOVENOX SUBQ SCH ×2 (09:55→21:56)
[2018-12-20 10:26] LABS: HEPATITIS PROFILE ACUTE SEE COMMENTS
[2018-12-20] MEDS: APRESOLINE PO SCH ×2 (12:22→19:59)
[2018-12-20] MEDS: MYCOSTATIN POWDER TOP SCH ×2 (13:05→20:00)
--- NOTE | 2018-12-20 15:24 | PROVIDER DOCUMENTATION ---
This chart was entered by Karen Lyon Scribe, acting as scribe for Dustin Bartholomew MD. HPI-Cardiopulmonary Arrest - General Stated Complaint: RESP. DISTRESS Time Seen by Provider: 12/18/18 17:44 Source: family, EMS Allergies/Adverse Reactions: Allergies Allergy/AdvReac Type Severity Reaction Status Date / Time No Known Allergies Allergy Verified 12/18/18 20:48 Home Medications: Home Medication List Medication Instructions Recorded Confirmed Last Taken Type Clonazepam [Klonopin] 1 mg PO BID 05/02/16 12/19/18 Unknown History Dextroamphetamine/Amphetamine 1 tab PO BID 05/02/16 12/19/18 Unknown History [Adderall 20 mg Tablet] Omeprazole [Prilosec] 40 mg PO DAILY@0700 05/02/16 12/19/18 Unknown History Duloxetine [Cymbalta] 60 mg PO DAILY 12/19/18 12/19/18 Unknown History Pregabalin [Lyrica] 100 mg PO TID 12/19/18 12/19/18 Unknown History Tizanidine [Zanaflex] 4 mg PO BID 12/19/18 12/19/18 Unknown History - History of Present Illness-C/P Arrest Initial Comments: Patient is an unknown aged female who presents to the ED via EMS with respiratory distress. EMS states patient was found unresponsive at home by valdemar levy. EMS states patient had pulse and blood pressure on their arrival. EMS reports patient's O2 sat was 80%. EMS placed a Bob Airway prior to arrival. son said he found mother unresponsive on the bed with foaming from the mouth, no shaking or tongue bite. No Hx of seizure. family denies drug or alcohol. 1743 - patient arrived in ED 175 - 100 mg of Succ and 15 mg of Etomidate given. 175 - 7.5 ET tube was placed. Initial Findings: unresponsive, other (low O2 sat) Treatment initiated prior to doctor arrival?: Initiated IV fluids, Initiated other (Bob Airway) Similar Symptoms Previously?: No Recently seen or treated by another doctor?: No - Pre-hospital Treatment EMS Initial Findings:: unresponsive, other (tachycardia and low O2 sat) Pre-hospital Treatment: Initiated IV fluids, Initiated other (Bob Airway) Review of Systems - Adult - REVIEW OF SYSTEMS - ADULT ROS:: ROS per family Constitutional: reports: no symptoms reported Eyes: reports: no symptoms reported Ears, Nose, Mouth & Throat: reports: no symptoms reported Cardiovascular: reports: no symptoms reported Respiratory: reports: no symptoms reported Gastrointestinal: reports: no symptoms reported Genitourinary: reports: no symptoms reported Musculoskeletal: reports: no symptoms reported Integumentary: reports: no symptoms reported Neurological: reports: see HPI Psychiatric: reports: no symptoms reported Endocrine: reports: no symptoms reported Hematologic/Lymphatic: reports: no symptoms reported Allergic/Immunologic: reports: no symptoms reported All Other Systems: Reviewed and Negative Past History - Adult - PAST MEDICAL HISTORY-ADULT Review of Records: reports: Old Records Reviewed, Nursing Assessment Review, Medications Reviewed, Social history reviewed & non-contributory. Major Childhood Illnesses: reports: denies history Cardiovascular: reports: HTN Respiratory: reports: denies history Gastrointestinal: reports: denies history Obstetrical/Gynecological: reports: denies history Genitourinary: reports: denies history Musculoskeletal: reports: denies history Neurological: reports: denies history Psychiatric: reports: denies history Endocrine/Immune: reports: denies history Other Conditions: reports: denies history - IMMUNIZATION STATUS Childhood Immunizations: See Nurse Assessment Flu Vaccine: See Nurse Assessment - FAMILY HISTORY Family History: reviewed, not pertinent Physical Exam-General - CONSTITUTIONAL General Appearance: severe distress, obtunded - EYES Eyes: PERRL/EOMI - HEAD, EARS, NOSE, MOUTH & THROAT HENMT: normocephalic/atraumatic, moist mucous membranes, normal ENT inspection - NECK Neck: supple - RESPIRATORY Respiratory: lungs clear, normal breath sounds - CARDIOVASCULAR Cardiovascular: normal peripheral pulses, regular rate, rhythm, no edema - GASTROINTESTINAL (ABDOMEN) Abdominal Exam: normal bowel sounds, non tender, soft - MUSCULOSKELETAL Extremity: non-tender, no pedal edema - SKIN Integumentary: normal color, normal turgor, warm/dry - NEUROLOGIC Neurologic: other (Limited per condition GCS 3 (Bob airway in place)) Progress - PLAN OF CARE/RESULTS Progress/Plan/Lab Results: 12/18/18 18:57 - Final Blood Orders Category Date Time Status Admit [facility] Routine AdmDCTranf 12/18/18 21:[address] HEAD W/O CONTRAST [CT] Stat Exams 12/18/18 18:33 Completed US ABDOMEN-COMPLETE [US] Routine Exams 12/19/18 07:00 Completed cxr [CHEST-1 VIEW] [RAD] Routine Exams 12/19/18 06:00 Completed cxr [CHEST-PORTABLE] [RAD] Stat Exams 12/18/18 18:02 Completed ABG [RESP] Routine Lab 12/18/18 18:01 Completed ABG [RESP] Routine Lab 12/18/18 21:32 Completed ABG [RESP] Routine Lab 12/19/18 04:30 Completed ALCOHOL BLOOD Stat Lab 12/18/18 18:57 Completed AMMONIA [CHEM] Routine Lab 12/18/18 23:30 Completed BLOOD CULTURE [BLDCUL] Stat Lab 12/18/18 18:57 Results CBC WITH DIFF [HEME] Routine Lab 12/19/18 04:30 Completed CBC WITH DIFF [HEME] Stat Lab 12/18/18 17:54 Completed CK PROFILE [SP CHEM] Lab 12/18/18 22:13 Completed CK TOTAL [CHEM] Stat Lab 12/18/18 18:57 Completed COMPREHENSIVE METABOLIC PANEL [CHEM] Routine Lab 12/19/18 04:30 Completed COMPREHENSIVE METABOLIC PANEL [CHEM] Stat Lab 12/18/18 18:57 Completed GRAM STAIN [BLDCUL] Stat Lab 12/18/18 18:57 Results HEPATITIS PROFILE [HH] Stat Lab 12/18/18 21:51 Completed LACTATE, PLASMA [CHEM] Stat Lab 12/18/18 17:54 Completed PRO B-NATRIURETIC PEPTIDE Stat Lab 12/18/18 18:57 Completed TROPONIN T Lab 12/18/18 22:13 Completed TROPONIN T Stat Lab 12/18/18 18:57 Completed TROPONIN T Stat Lab 12/18/18 20:34 Completed TSH Routine Lab 12/19/18 04:30 Completed URINALYSIS W/POSS RFLX CULT [URINALYSIS] Stat Lab 12/18/18 18:00 Completed URINE CULTURE [RM] Routine Lab 12/18/18 22:03 Completed URINE DRUG SCREEN Stat Lab 12/18/18 18:00 Completed 0.9% Sodium Chloride Inj [Ns] 1,000 ml Med 12/18/18 17:52 Discontinued .ROUTE As directed 0.9% Sodium Chloride Inj [Ns] 1,000 ml Med 12/18/18 17:54 Discontinued .ROUTE As directed 0.9% Sodium Chloride Inj [Ns] 1,000 ml Med 12/18/18 21:45 Active IV 75 mls/hr 0.9% Sodium Chloride Inj [Ns] 1,000 ml Med 12/18/18 18:03 Discontinued IV 999 mls/hr CefTRIAXONE [Rocephin] 1 gm Med 12/18/18 19:52 Discontinued 0.9% Sodium Chloride Inj [Ns] 50 ml IV NOW Dextrose 50% Syringe [D50w Syringe] Med 12/18/18 21:30 Discontinued 50 ml IV NOW ONE Enoxaparin [Lovenox] Med 12/18/18 22:00 Active 100 mg SUBQ Q12H Etomidate [Amidate] Med 12/18/18 17:50 Discontinued 40 mg .ROUTE .STK-MED ONE Linezolid 600 mg/D5w [Zyvox 600 mg/D5w] Med 12/18/18 22:00 Discontinued 600 mg in 300 ml IV Q12H Pantoprazole [Protonix] Med 12/18/18 22:00 Active 40 mg IV Q24H Piperacillin/Tazobactam [Zosyn] 3.375 gm Med 12/18/18 21:45 Active 0.9% Sodium Chloride Inj [Ns] 50 ml IV Q6H Propofol [Diprivan 1%] Med 12/18/18 17:49 Discontinued 1,000 mg in 100 ml .ROUTE As directed Propofol [Diprivan 1%] Med 12/18/18 20:30 Discontinued 1,000 mg in 100 ml IV As Directed mls/hr Sodium Chloride 0.9% Med 12/18/18 22:00 Active 10 ml INJ DIRECTED Succinylcholine [Quelicin] Med 12/18/18 17:50 Discontinued 200 mg .ROUTE .STK-MED ONE Ventilator Order Routine Oth 12/18/18 18:50 Completed EEG, Including Awake & Drowsy Routine Ther 12/18/18 21:39 Completed EKG [EKG] Stat Ther 12/18/18 18:03 Active Echo Spec/Color Doppler Routine Ther 12/18/18 21:46 Completed Transfer/Admit Order [TRANSFER] Routine Transfer 12/18/18 21:52 Completed Pt checked multiple time throughout the ER stay. pt is sedated and intubated and vitals stable. MV setting changed and ABG improved. unresponsiveness could be new onset seizure, sepsis, drugs. troponin slightly elevated likely from hypoxia. will admit for further management in the ICU. PT CARE DISCUSSED WITH THE SUPERVISING PHYSICIANS DR. SHEPPARD AND LALO AND THEY AGREE WITH THE PLAN DOCUMENTED. Result Diagrams: 12/20/18 05:00 12/20/18 05:00 - REASSESSMENT Reassessment #1 Time Reassessed: 19:01 Status: unchanged Reassessment #2 Time Reassessed: 19:43 Status: unchanged Reassessment #3 Time Reassessed: 20:12 Status: unchanged - EKG 1 Time of EKG reading by physician:: 18:04 EKG Read and Signed by:: Dustin Rueda EKG Interpretation (*Must complete 3 of following elements*): Abnormal (borderline) Rate: 112 Rhythm: ST [place]: normal QRS: normal, other (low voltage) ST Wave: normal Procedures - INTUBATION Time of Intubation: 17:52 Intubation Method: orotracheal Equipment: ETT Tube Size (cm): 7.5 Pretreated with 100% Oxygen?: Yes Breath Sounds after Intubation: equal ETT Primary Tube Confirmation: Capnometry CO2 Change, Direct Visualization, Chest Rise and Fall Intubation Complications: no complications Vent Settings: See Respiratory Therapy Notes Departure - Departure Date of Disposition Decision: 12/18/18 Time of Disposition Decision: 21:18 DIAGNOSIS: Unresponsive, Elevated troponin Acute respiratory failure Qualifiers: Respiratory failure complication: hypoxia and hypercapnia Qualified Code(s): J96.01 - Acute respiratory failure with hypoxia; J96.02 - Acute respiratory failure with hypercapnia Sepsis Qualifiers: Sepsis type: sepsis due to unspecified organism Qualified Code(s): A41.9 - Sepsis, unspecified organism Disposition: ADMITTED INPATIENT 09 Certified Medical Emergency: Emergent Condition: Critical - Critical Care Note This patient required my direct & personal management of CC.: Yes Total Time (mins): 45 Critical Care Statement: This patient required my direct personal management to treat or rule out processes, the absence of which, could potentiallly result in sudden, clinically significant life or limb threatening deterioration. Attestation - Physician/ NASRA Attestation Patient care was provided by Advanced Practice Provider:: No The physician spent face to face time with patient:: Yes Advanced Practice Provider documentation review:: Supervising physician onsite and consulted in the evaluation and care of this patient. The physician did have a face to face encounter with the patient. This chart was documented by the indicated scribe, (Karen Lyon, Katie) and accurately reflects the services I performed and decisions made by me, Dustin Bartholomew MD, as attested by the provider's signature.
--- NOTE | 2018-12-20 16:42 | PROGRESS NOTE ---
DATE: 12/20/2018 Ms. Horn was initially asleep as I approached her bedside. She was easily awakened and remained alert and attentive during my interview. She had some trouble collecting her thoughts but was able to answer questions correctly regarding orientation and situation. She did not know the day of the week. Speech is not dysarthric. Language function is intact on brief bedside testing. Head and neck are unremarkable. There is no meningismus. Visual chandler are full. Limb tone is symmetric. IMPRESSION: Global encephalopathy, resolving. I do not have any new thoughts or new suggestions. I believe she is approaching baseline mentally. Thanks for asking Neurology to see Ms. Horn. cc: Reva Washington III, MD
--- NOTE | 2018-12-20 18:04 | PROGRESS NOTE ---
DATE: 12/20/2018 SUBJECTIVE: Patient continues fairly drowsy when I see here but arouses and interacts with brief responses. She denies chest pain or shortness of breath. OBJECTIVE: Vital signs: Blood pressure 158/94, heart rate 94, oxygen saturation 95%. Neck: There is no significant jugular venous distention. Chest: Clear to auscultation. Cardiac Exam: Reveals a regular rate and rhythm without appreciable murmur or gallop. There is no evidence of peripheral edema. LABORATORY DATA: Includes white blood cell count 16.66, hematocrit 37.7, hemoglobin 12.4, platelet count 261,000. Arterial blood gas with pH of 7.39, pCO2 of 46, PO2 of 80 on nasal cannula oxygen at 2 L/minute. Sodium 142, potassium 3.7, chloride 105, carbon dioxide 26, BUN 6, creatinine 0.6, glucose 122. Initial troponin 0.051 with follow-up troponin of 0.012 and 0.015. Echocardiography technically difficult per my review. Left ventricular ejection fraction around 50%. There appears to be severe hypokinesis of the very apical portion of the inferior wall of questionable clinical significance. Moderate tricuspid regurgitation demonstrated. IMPRESSIONS: 1. Recent respiratory failure requiring intubation, possibly related to excessive sedative medications. 2. Slight elevation in troponin. Clinical presentation not consistent with [id number] myocardial infarction given lack of chest pain and very minimal elevation in troponins. Suspect very small troponin leak likely related to respiratory failure/hypoxemia. 3. Chronic pain syndrome with chronic back discomfort. RECOMMENDATIONS: 1. Repeat echocardiography with echo contrast agent Optison to assess left ventricular function and wall motion. 2. As patient recuperates will consider screening for coronary disease with Lexiscan sestamibi study. cc: Marcio Ordonez MD
--- NOTE | 2018-12-20 18:17 | EEG REPORT ---
DATE: 12/19/2018 EEG NUMBER: #[id number]. COMMENT: This is a digitally recorded EEG on a 48-year-old patient with recent altered awareness and significant recovery. FINDINGS: During waking, polymorphic and rhythmic theta and delta are prominent across both hemispheres. There was not sustained posterior dominant rhythm. Drowsing occurred briefly with appearance of more generalized slowing. Stage 2 sleep was not recorded. Hyperventilation was not done. Photic stimulation did not significantly alter the record. No definite epileptiform discharge was identified. INTERPRETATION: Abnormal EEG because of generalized slowing. CORRELATION: This is indicative of a diffuse encephalopathy and is nonspecific. The absence of epileptiform discharges on a single EEG does not exclude a clinical diagnosis of seizures. cc: MD Shahzad Acuna III, MD
--- NOTE | 2018-12-20 19:09 | PROGRESS NOTE ---
DATE: 12/20/2018 SUBJECTIVE: The patient is lethargic. She does awaken briefly, but falls back asleep. OBJECTIVE: Vital Signs: Temperature 98.9 degrees, blood pressure 151/89, heart rate 86, respirations 18, O2 saturation 94% on 2 L nasal cannula. General: This is a morbidly obese female lying in bed in no acute distress. Heart: S1, S2 normal. Regular rate and rhythm. Lungs: Coarse breath sounds. Abdomen: Positive bowel sounds. Soft, nontender, nondistended. Extremities: No edema. No cyanosis. Neurologic: The patient is a lethargic, but will awaken when her name is called. LABS: White blood cell count is 16, hemoglobin 12, hematocrit 37, platelets 261,000. Sodium 142, potassium 3.7, chloride 105, CO2 26, BUN 6, creatinine 0.6 glucose 122, phosphorus 1.6, magnesium 1.9. Chest x-ray shows mild pulmonary edema. ASSESSMENT AND PLAN: 1. Acute hypoxemic respiratory failure status post extubation. Continue with pulmonary toiletry. 2. Pneumonia. Continue with broad-spectrum antibiotics and bronchodilator therapy. 3. Toxic encephalopathy. The patient remains lethargic. Her head CT was negative. We will continue to monitor the patient closely for improvement. 4. Morbid obesity. Aware. 5. Hypertension. We will start the patient on oral antihypertensive therapy. 6. Elevated troponin. Cardiology is following. The patient denies having any chest pain at this time. 7. Chronic back pain. The patient is on morphine. 8. Gastrointestinal prophylaxis. Continue on Protonix. 9. Deep vein thrombosis prophylaxis. The patient is on full-dose Lovenox. cc: Sonali Diaz MD
--- NOTE | 2018-12-20 20:17 | PULMONOLOGY PROGRESS NOTE ---
DATE: 12/20/2018 SUBJECTIVE: The patient is awake, alert and conversant. She denies suicidal ideation. She does report generalized pain. OBJECTIVE: Vital Signs: The patient has been afebrile for the last 24 hours. Blood pressure 134/93, heart rate 70, respiratory rate 21, oxygen saturation 94% on 2 L per nasal cannula. HEENT: Pupils are equal and reactive. Oropharynx appears clear. Neck: Supple. Chest: Reveals crackles predominantly at the left base. Cardiac: S1, S2. Abdomen: Obese and soft. Extremities: Reveal trace edema. LABORATORIES: Chest x-ray reveals mild increased vascular prominence, left greater than right. Sputum culture reveals no growth. Blood culture is positive for a gram positive cocci in 1 out of 2 bottles. White blood count 16.7, hemoglobin 12.4, platelet count 261,000. Arterial blood gas on 2 L per nasal cannula: pH 7.39, pCO2 of 46, PO2 of 80. IMPRESSION: A 48-year-old with: 1. Presumptive accidental drug overdose. 2. Acute hypoxemic respiratory failure. 3. Chronic pain syndrome. 4. Morbid obesity. 5. Resolving encephalopathy. RECOMMENDATIONS: 1. Continue current antibiotic regimen pending results of blood cultures. 2. Continue bronchial hygiene. 3. Cycle BiPAP if needed. 4. Wean oxygen as tolerated. 5. Encourage weight loss. 6. Cautioned about the use any sedating narcotics. cc: Segun Rothman MD
[2018-12-20] MEDS: PROTONIX IV SCH (21:56)
[2018-12-21] MEDS: NS 1,000 ML IV SCH (03:47)
[2018-12-21] MEDS: ZOSYN 3.375 GM in NS 50 ML IV SCH ×2 (03:48→08:54)
[2018-12-21] MEDS: APRESOLINE PO SCH ×2 (04:00→17:56)
[2018-12-21] MEDS: DUONEB (A & A) INH SCH ×6 (04:50→22:59)
[2018-12-21] MEDS: VANCOMYCIN 2,000 MG in NS 500 ML IV SCH (05:10)
[2018-12-21 07:15] LABS: HEMATOCRIT 39.7 % (37.0-47.0); HEMOGLOBIN 13.1 g/dL (12.0-16.0); MCH 29.6 PG (27-31); MCV 89.6 FL (81-99); RBC 4.43 XMIL (4.2-5.4); RDW 12.9 % (11.5-14.5); WBC 13.18 X1000 (4.8-10.8)
[2018-12-21 07:32] LABS: ALB/GLOB RATIO 1.3; ALBUMIN 3.6 g/dL (3.5-5.0); DIRECT BILIRUBIN 0.7 mg/dL (0.00-0.20); TOTAL BILIRUBIN 1.81 mg/dL (0.20-1.00); TOTAL PROTEIN 6.4 g/dL (6.3-8.3)
[2018-12-21 07:46] LABS: AGAP 12; BUN 5 mg/dL (8-22); CALCIUM 8.8 mg/dL (8.8-10.2); CHLORIDE 103 mmol/L (98-107); COSMO 283; CREATININE 0.8 mg/dL (0.5-0.9); ESTIMATED GFR > 60; GLUCOSE 109 mg/dL (70-104); MAGNESIUM 2.1 mg/dL (1.5-2.7); PHOSPHORUS 1.8 mg/dL (2.7-4.5); POTASSIUM 3.5 mmol/L (3.5-5.1); SODIUM 143 mmol/L (136-145); TCO2 28 mmol/L (25-35)
[2018-12-21] MEDS: ASPIRIN NG SCH (08:54)
[2018-12-21] MEDS: MYCOSTATIN POWDER TOP SCH ×2 (08:54→20:24)
[2018-12-21] MEDS: LOVENOX SUBQ SCH ×2 (09:30→20:23)
--- NOTE | 2018-12-21 10:34 | PROGRESS NOTE ---
DATE: 12/21/2018 SUBJECTIVE: Ms. Horn is awake and alert. She reports no headache and no new problems. She told me that she sometimes uses glasses, but believes that she can see pretty well without them. She was not able to read the white board at the foot of her bed today and she seemed unable to read that in the ICU yesterday, also. I do not know if this represents a change in vision or not. Otherwise, everything is stable. OBJECTIVE: She has full visual chandler, full lateral eye movements, normal facial motility, symmetric limb tone and power, good gag, normal speech and language function. Head and neck are unremarkable. IMPRESSION: Global encephalopathy, resolved. This seems likely related to ingestion as outlined in earlier notes. I do not find evidence of any persistent neurologic problem. Thanks for asking Neurology to see Ms. Horn. cc: MD FAVIOLA Acuna III
[2018-12-21] MEDS ORDERED: LASIX IV ONE (10:39)
[2018-12-21 11:19] LABS: INR 0.98; PROTIME 13.8 Seconds (11.0-16.0)
[2018-12-21] MEDS ORDERED: KLONOPIN PO SCH (12:00)
[2018-12-21] MEDS ORDERED: ADDERALL PO SCH (12:00)
[2018-12-21] MEDS ORDERED: ZANAFLEX PO SCH (12:00)
[2018-12-21] MEDS ORDERED: CYMBALTA PO SCH (12:00)
[2018-12-21] MEDS: LYRICA PO SCH ×2 (12:39→20:24)
--- NOTE | 2018-12-21 13:59 | INFECTIOUS DISEASE CONSULT REP ---
DATE: 12/21/2018 CONCLUSION: Dr. Diaz asked me to see the patient regarding bacteremia. One of 2 blood cultures is growing strep mitis which is a viridans strep. When the blood culture 1st turned positive, it was felt that it was Streptococcus pneumoniae. However, further work on the positive blood culture showed that it was a strep mitis as mentioned above. Since only 1 of 2 blood cultures are positive this could be a contaminant but it also could be a pathogen. RECOMMENDATIONS: As mentioned above this positive blood culture could be a contaminant and not a pathogen, but also there is a possibility that it is a true bacteremia. In view of the fact that the patient was very sick, I think I would regard is as being a pathogen and treat the patient with Rocephin and discontinue the patient's Zosyn. DISCUSSION: The patient tells me that she accidentally overdosed on medications. She said that she had not been taking the oxycodone and benzodiazepine at all and then she took it in the dose that she was taking at and she feels that most likely that is why she overdosed. She is coughing and occasionally produces a sputum that has yellow discoloration. The sputum culture grew out normal diogenes. She did not remember having fever or shaking chills. LABORATORY DATE: Laboratory studies thus far show a CBC with a white count of 13,180, hemoglobin 13.1, and platelet count 277,000. Creatinine is 0.8, GFR is greater than 60. Liver function studies are normal. Drug screen as mentioned above showed oxycodone and benzodiazepines. Hepatitis profile was negative. TEO screen was negative. One of 2 blood cultures grew strep mitis, the other blood culture was sterile. Urine culture was negative. Sputum cultures growing normal diogenes and chest x-ray is read as showing pulmonary edema. PAST MEDICAL HISTORY/REVIEW OF SYSTEMS: Eyes and ears: She does not have any problem seeing or hearing. Neck: She does not have any stiffness in her neck. Respiratory: See present illness. Cardiac: No chest pains or palpitations. GI: No nausea, vomiting, or diarrhea. No dysuria or flank pain. Integumentary: The patient does have scars especially on her legs where she tells me she had small pustular lesions that grew methicillin- resistant Staph aureus about a year ago. Neurologic: No seizures, no loss of motor or sensory function. OB-Drawing Checker history: She is a 2 para 2 ab 0. She delivered one of her children by . She has had a tubal ligation, a hysterectomy and surgery for ruptured ovarian cyst. PREVIOUS HOSPITALIZATIONS AND OPERATIONS: She has had 1 labor and delivery, a , a tubal ligation, hysterectomy and surgery for ruptured ovarian cyst. She has also had a tonsillectomy and admission for bronchitis when she was a child. MEDICAL DISEASES: Positive for obesity, myocardial infarction and hypertension. INFECTIOUS DISEASE HISTORY: Positive for pneumonia, UTI and sinusitis. The patient tells me in the past year the only infection she had was sinusitis which would did not require hospitalization. The patient in the past has had methicillin-resistant Staph aureus infection on her legs as mentioned above. FAMILY HISTORY: Positive for hypertension, myocardial infarction, stroke and cancer. SOCIAL HISTORY: [place] . She has a dog as a pet. The patient does not smoke cigarettes, drink alcoholic beverages or abuse drugs. ALLERGIES: She has no known drug allergies. HOME MEDICATIONS: Include the following: Klonopin, dextroamphetamine, which is Adderall, Cymbalta, Prilosec Lyrica, and Zanaflex. PHYSICAL EXAMINATION: Vital Signs: Temperature is 98.1 degrees, pulse 80, respirations 16, blood pressure 146/69. Patient is 5 feet 7 inches tall, weighs 256 pounds. General: This is an obese, middle-aged female. Currently, she seems in no acute distress except for a couple times when she coughed and seem to produce yellow colored sputum. Head/eyes/ears/nose/throat: She can hear my spoken words and see near objects. She does not have any white patches in her mouth. Neck: No meningismus. Lungs: Clear to auscultation. Cardiovascular: Heart rate is regular. Abdomen: Soft and nontender. Extremities: She can move all of her extremities. There is edema in the legs and scarring from when she had Staph infection in the legs. Neurologic: Patient is alert she can move her extremities. There is no tremor. Her sensation is intact to touch. Her memory as regarding her medical history seemed to be intact also. Thank you for the consult. cc: Chadwick Helms MD [facility]
[2018-12-21 16:15] LABS: ALLEN TEST YES; BE 4.6 mmoll (-3.0-3.0); BLOOD TYPE ARTERIAL; HCO3-(ACT) 28.4 mmoll (20.0-26.0); METHB 1.1 % (0.0-1.5); O2(CT) 15.1 mL/dL (15.0-23.0); O2HB 93.7 % (95.0-99.0); PCO2(98.6) 38 mmHg (35-45); PO2(98.6) 65 mmHg (60-100); SAMPLE BLOOD; SAO2 96.6 % (95.0-100.0); THB 11.4 g/dL (11.5-17.4); pH(98.6) 7.48 (7.35-7.45)
[2018-12-21 16:16] LABS: MODALITY ROOM AIR
--- NOTE | 2018-12-21 16:41 | PROGRESS NOTE ---
DATE: 12/21/2018 SUBJECTIVE: The patient is resting comfortably in bed. No acute events noted overnight. She is refusing to have her IV replaced. OBJECTIVE: Vital Signs: Temperature 97.9 degrees, blood pressure 101/55, heart rate 87, respirations 20, O2 saturation 93% on room air. General: This is a morbidly obese female sitting at the edge of the bed in no acute distress. Heart: S1, S2 normal. Regular rate and rhythm. Lungs: Equal air entry bilaterally. No crackles, no rales. Abdomen: Positive bowel sounds. Soft, obese, nontender, nondistended. Extremities: No edema, no cyanosis. Neuro: The patient is alert and oriented x4. LAB: White blood cell count 13, hemoglobin 13, hematocrit 39, platelets 277,000. Sodium 143, potassium 3.5, chloride 103, CO2 28, BUN 5, creatinine 0.8, glucose 109, phosphorus 1.8, total bilirubin 1.8, AST 85, ALT 93, alkaline phosphatase 90. ASSESSMENT AND PLAN: 1. Acute hypoxemic respiratory failure status post extubation. Improved. 2. Bacteremia secondary to Streptococcus mitis. The patient has been started on Rocephin by Dr. Helms. We will continue to monitor closely. 3. Metabolic encephalopathy. Resolved. 4. Elevated troponin. The patient is scheduled to undergo a nuclear stress test on Monday. 5. Morbid obesity. The patient has been counseled about weight loss and proper diet. 6. Chronic back pain. Aware. 7. Hypertension. Continue on the current antihypertensive regimen. 8. Mild volume overload. Will give the patient a dose of Lasix today. 9. Transaminitis. The patient has hepatic steatosis. The hepatitis profile is negative. We will continue to monitor the liver function studies closely. 10. Hypophosphatemia. Will replace the patient's phosphorus. 11. Deep vein thrombosis prophylaxis. The patient remains on full dose Lovenox. cc: Sonali Diaz MD
[2018-12-21] MEDS: ROCEPHIN 2 GM in NS 50 ML IV SCH (17:08)
[2018-12-21] MEDS: PROTONIX IV SCH (20:27)
[2018-12-21] MEDS ORDERED: NEUTRA-PHOS PO SCH (21:00)
[2018-12-22] MEDS: DUONEB (A & A) INH SCH ×6 (03:00→23:19)
[2018-12-22] MEDS: ROCEPHIN 2 GM in NS 50 ML IV SCH ×2 (05:00→20:36)
[2018-12-22] MEDS: LOVENOX SUBQ SCH ×2 (06:01→10:03)
[2018-12-22 06:17] LABS: HEMOGLOBIN 12.4 g/dL (12.0-16.0); MCH 29.4 PG (27-31); MCHC 33.5 g/dL (33-37); MCV 87.7 FL (81-99); MPV 11.1 FL (7.4-10.4); RBC 4.22 XMIL (4.2-5.4); RDW 12.6 % (11.5-14.5); WBC 11.45 X1000 (4.8-10.8)
[2018-12-22 06:47] LABS: MAGNESIUM 1.7 mg/dL (1.5-2.7)
[2018-12-22 06:48] LABS: ALB/GLOB RATIO 1.7; ALBUMIN 3.5 g/dL (3.5-5.0); DIRECT BILIRUBIN 0.5 mg/dL (0.00-0.20); TOTAL BILIRUBIN 1.07 mg/dL (0.20-1.00); TOTAL PROTEIN 5.6 g/dL (6.3-8.3)
[2018-12-22 06:55] LABS: CALCIUM 8.4 mg/dL (8.8-10.2); CREATININE 2.1 mg/dL (0.5-0.9); POTASSIUM 2.9 mmol/L (3.5-5.1)
[2018-12-22] MEDS ORDERED: KLOR-CON PO ONE (07:33)
[2018-12-22] MEDS ORDERED: MAGNESIUM SULFATE 2 GM/S.W.I. 2 GM/50 ML IVPB IV ONE (07:33)
[2018-12-22 09:14] LABS: URINE SOURCE CLEAN CATCH
[2018-12-22 09:26] LABS: BILIRUBIN URINE NEGATIVE (NEGATIVE); BLOOD URINE NEGATIVE (NEGATIVE); COLOR STRAW; GLUCOSE URINE NEGATIVE (NEGATIVE); KETONE URINE NEGATIVE (NEGATIVE); LEUKOCYTES URINE NEGATIVE (NEGATIVE); NITRITE URINE NEGATIVE (NEGATIVE); PH URINE 6.5; PROTEIN URINE NEGATIVE (NEGATIVE); TURBIDITY URINE CLEAR (CLEAR); UROBILINOGEN URINE NORMAL (NORMAL)
[2018-12-22 09:27] LABS: UR EPITHELIAL CELLS <10 /HPF (<10); URINE BACTERIA NEGATIVE /HPF; URINE RBC <10 /HPF (<10); URINE WBC <10 /HPF (<10)
[2018-12-22 09:34] LABS: UR CREAT RANDOM 21.3 mg/dL (11-20); UR PROT RANDOM 11.3 mg/dL; UR SODIUM 25 mmoll; UR UREA NITROGEN RANDOM < 70 mg/dL
[2018-12-22 09:38] LABS: SP GRAVITY URINE <= 1.005
[2018-12-22] MEDS: ASPIRIN NG SCH (10:03)
[2018-12-22] MEDS: KLONOPIN PO SCH ×2 (10:03→21:09)
[2018-12-22] MEDS: MYCOSTATIN POWDER TOP SCH ×2 (10:03→22:07)
[2018-12-22] MEDS: LYRICA PO SCH ×3 (10:03→22:11)
[2018-12-22] MEDS ORDERED: VITAMIN D PO SCH (12:00)
--- NOTE | 2018-12-22 12:22 | Diag Imaging Result Doc PS360 ---
EXAM: CHEST-PORTABLE HISTORY: pulmonary edema TECHNIQUE: Chest single view COMPARISON: 12/20/2018 FINDINGS: The lungs are well expanded. The heart is not enlarged. The vessels are not distended. There are no infiltrates. No effusion identified. IMPRESSION: No pulmonary edema on the current exam. Electronically signed by Jacob Clement 12/22/2018 12:19 PM
--- NOTE | 2018-12-22 12:24 | PROGRESS NOTE ---
DATE: 12/22/2018 SUBJECTIVE: The patient is awake and alert this morning. She states that she feels a lot better. She denies having any shortness of breath. She states that she does not remember what happened yesterday afternoon prior to being transferred to CICU. OBJECTIVE: Vital Signs: Temperature 98.2 degrees, blood pressure 153/90, heart rate 90, respirations 17, O2 saturation is 100% on room air. General: This is a morbidly obese female sitting up in bed in no acute distress. Head: Normocephalic, atraumatic. Heart: S1, S2 normal. Regular rate and rhythm. Lungs: Clear to auscultation bilaterally. No wheezing. No rales. No rhonchi. Abdomen: Positive bowel sounds. Soft, obese, nontender, nondistended. Extremities: The patient has multiple healing scars on her arms and legs from a prior rash. No edema, no cyanosis. Neurologic: The patient is alert and oriented x4. LABORATORY DATA: White blood cell count 11, hemoglobin 12, hematocrit 37, platelets 262,000. Sodium 139, potassium 2.9, chloride 99, CO2 27, BUN 9, creatinine 2.1. AST 52, ALT 85, alkaline phosphatase 94, bilirubin 1. ASSESSMENT AND PLAN: 1. Acute hypoxemic respiratory failure status post extubation. Resolved. 2. Bacteremia secondary to Streptococcus mitis. Continue on Rocephin as directed by Dr. Helms. 3. Metabolic encephalopathy. Resolved. 4. Acute kidney injury. We will check urine studies and a renal ultrasound. We will also consult with the oil recovery operator. 5. Elevated troponin. The patient denies having any chest pain at this time. The patient is scheduled for a stress test on Monday. 6. Morbid obesity. The patient has been counseled about weight loss and proper diet. 7. Transaminitis. Improved. 8. Hypokalemia. We will replace the patient's potassium. 9. Anxiety disorder. Continue on Klonopin. 10. Deep vein thrombosis prophylaxis. Continue on heparin. cc: Sonali Diaz MD MTDD
[2018-12-22 14:47] LABS: ALBUMIN 3.4 g/dL (3.5-5.0); CALCIUM 8.7 mg/dL (8.8-10.2); CREATININE 2.5 mg/dL (0.5-0.9); PHOSPHORUS 2.3 mg/dL (2.7-4.5)
--- NOTE | 2018-12-22 18:16 | NEPHROLOGY CONSULTATION ---
DATE: 12/22/2018 REASON FOR CONSULTATION: Acute kidney injury. HISTORY OF PRESENT ILLNESS: Ms. Horn is a 48-year-old white female who was brought to the emergency room because she was found lying in bed somewhat obtunded by her . Her initial evaluation disclosed blood pressure of 131/98, with a heart rate of 122. She had leukocytosis with a white count of 22.9. She also had glycosuria. She was admitted to the hospital and treated empirically with antibiotics and resuscitation. She had another episode while in the hospital and therefore was transferred to the [facility]. In this context, her kidney function was normal with a creatinine of 1.2 on presentation, and 0.8 on yesterday. She has not received any IV contrast. Her lowest recorded blood pressure was 99/57. Her urine has been bland as of this morning. In this context her creatinine today was 2.1, so we were asked to see her in consultation. PAST MEDICAL HISTORY: As above. She also has a history of peripheral neuropathy, chronic pain syndrome. ALLERGIES: None. HOME MEDICATIONS: Include clonazepam, codeine, promethazine, cyclobenzaprine, dextromethorphan/amphetamine, Lexapro, Flonase, gabapentin, omeprazole. SOCIAL HISTORY: Negative for tobacco or alcohol. FAMILY HISTORY: Otherwise noncontributory. REVIEW OF SYSTEMS: Otherwise noncontributory. PHYSICAL EXAMINATION: Vital Signs: Blood pressure 142/89, heart rate 95, respirations 18, afebrile. General: She is a healthy-appearing woman, in no acute distress. Skin: Warm and dry. HEENT: Conjunctivae are pink. Neck: Veins are not distended. Heart: Regular. No gallops. Mildly tachycardic. Lungs: Have equal breath sounds. No crackles or wheezes. Abdomen: Soft and nontender. Bowel sounds present. Extremities: No edema, clubbing or cyanosis. IMPRESSION: Abnormal creatinine. It is not clear to me why she would have this problem nor whether it represents true departure from her baseline. We will simply repeat her creatinine this afternoon before any further intervention is embarked upon. She did have a single dose of diuretic yesterday. She is on no medications that are nephrotoxic and has not had intravenous contrast. We will follow with you. cc: Brandt Gleason MD
[2018-12-22] MEDS: PROTONIX IV SCH ×2 (20:36→22:07)
[2018-12-23] MEDS: DUONEB (A & A) INH SCH ×6 (05:08→23:19)
[2018-12-23 05:48] LABS: HEMATOCRIT 40.9 % (37.0-47.0); HEMOGLOBIN 13.7 g/dL (12.0-16.0); MCH 29.3 PG (27-31); MCHC 33.5 g/dL (33-37); MCV 87.6 FL (81-99); MPV 10.5 FL (7.4-10.4); RBC 4.67 XMIL (4.2-5.4); RDW 12.9 % (11.5-14.5); WBC 11.04 X1000 (4.8-10.8)
[2018-12-23 06:14] LABS: ALBUMIN 3.3 g/dL (3.5-5.0); CALCIUM 8.6 mg/dL (8.8-10.2); CREATININE 3.3 mg/dL (0.5-0.9); PHOSPHORUS 3.4 mg/dL (2.7-4.5)
[2018-12-23 06:15] LABS: ALB/GLOB RATIO 1.1; ALBUMIN 3.5 g/dL (3.5-5.0); DIRECT BILIRUBIN 0.2 mg/dL (0.00-0.20); TOTAL BILIRUBIN 0.6 mg/dL (0.20-1.00); TOTAL PROTEIN 6.6 g/dL (6.3-8.3)
[2018-12-23] MEDS: HEPARIN SUBQ SCH ×2 (08:50→21:22)
[2018-12-23] MEDS: NS 1,000 ML IV SCH (08:50)
[2018-12-23] MEDS: ROCEPHIN 2 GM in NS 50 ML IV SCH ×2 (08:50→21:22)
[2018-12-23] MEDS: LYRICA PO SCH ×3 (08:51→21:22)
[2018-12-23] MEDS: KLONOPIN PO SCH ×2 (08:51→21:22)
[2018-12-23] MEDS: MYCOSTATIN POWDER TOP SCH ×2 (08:51→21:32)
[2018-12-23] MEDS: ASPIRIN NG SCH (08:51)
--- NOTE | 2018-12-23 15:41 | PROGRESS NOTE ---
DATE: 12/23/2018 SUBJECTIVE: The patient reports that she has been having several episodes of diarrhea since yesterday morning. She reports at least 6 episodes in the last 24 hours. OBJECTIVE: Vital Signs: Temperature 98.4 degrees, blood pressure 147/94, heart rate 89, respirations 18, O2 saturation is 100% on room air. Intake and Output: Intake 900. Output 3.1 L. General: This is a morbidly obese female, lying in bed in no acute distress. Head: Normocephalic, atraumatic. Skin: The patient appears to have rosacea involving her cheeks and chin. Heart: S1, S2 normal. Regular rate and rhythm. Lungs: Clear to auscultation bilaterally. Abdomen: Positive bowel sounds. Soft, obese, nontender, nondistended. Extremities: No edema, no cyanosis. No calf tenderness. Neurologic: The patient is alert and oriented x4. DIAGNOSTIC STUDIES: White blood cell count 11, hemoglobin 13, hematocrit 40, platelets 308,000. Sodium 143, potassium 4, chloride 104, CO2 of 25, BUN 14, creatinine 3.3, glucose 108, AST 36, ALT 67, alkaline phosphatase 100. ASSESSMENT AND PLAN: 1. Acute hypoxemic respiratory failure status post extubation. Resolved. 2. Bacteremia secondary to Streptococcus mitis. Continue on Rocephin as ordered by Dr. Helms. 3. Acute kidney injury. Likely acute tubular necrosis. We will start IV fluids and monitor the patient's response. The patient's urine output remains excellent. 4. Diarrhea. We will check stool studies. 5. Elevated troponin. The patient is scheduled to undergo a stress test tomorrow. 6. Morbid obesity. The patient has been counseled about weight loss and proper diet. 7. Vitamin D deficiency. Continue with vitamin D replacement. 8. Transaminitis. Improved. 9. Anxiety disorder. Continue on Klonopin. 10. Chronic back pain. The patient complains of radiculopathy. We will order an MRI of the lumbar spine to be done on Monday. 11. Deep vein thrombosis prophylaxis. Continue on heparin. cc: Sonali Diaz MD MTDD
[2018-12-23] MEDS: PROTONIX IV SCH (21:22)
[2018-12-24] MEDS: NS 1,000 ML IV SCH ×4 (00:56→22:31)
[2018-12-24] MEDS: DUONEB (A & A) INH SCH ×4 (04:57→16:03)
[2018-12-24 05:52] LABS: BASO# 0.01 X1000 (0.0-0.2); BASO% 0.1 % (0.0-0.8); EOS# 0.28 X1000 (0.0-0.7); EOS% 2.7 % (0.0-10.0); HEMATOCRIT 37.4 % (37.0-47.0); HEMOGLOBIN 12.5 g/dL (12.0-16.0); IMM GRAN# 0.07 X1000 (0.0-0.04); IMM GRAN% 0.7 % (0.0-0.5); LYMPH# 1.82 X1000 (1.2-3.4); LYMPH% 17.4 % (20.5-51.1); MCH 29.4 PG (27-31); MCHC 33.4 g/dL (33-37); MONO# 1.69 X1000 (0.11-0.59); MONO% 16.2 % (1.7-9.3); MPV 10.5 FL (7.4-10.4); NEUT# 6.56 X1000 (1.4-6.5); NEUT% 62.9 % (42.2-75.2); PLT 265 X1000 (130-400); RBC 4.25 XMIL (4.2-5.4); WBC 10.43 X1000 (4.8-10.8)
[2018-12-24 06:19] LABS: ALBUMIN 3.1 g/dL (3.5-5.0); CALCIUM 8.1 mg/dL (8.8-10.2); CREATININE 3.7 mg/dL (0.5-0.9); PHOSPHORUS 4.3 mg/dL (2.7-4.5); POTASSIUM 3.7 mmol/L (3.5-5.1)
--- NOTE | 2018-12-24 07:25 | EKG Report ---
Test Performed on : 12/22/2018 06:24:16 AM Test Reason : dyspnea Blood Pressure : / mmHG Vent. Rate : 076 BPM Atrial Rate : 076 BPM P-R Int : 150 ms QRS Dur : 086 ms QT Int : 380 ms P-R-T Axes : 028 031 -12 degrees QTc Int : 427 ms Normal sinus rhythm. Normal ECG When compared with ECG of 19-DEC-2018 20:05, No significant change was found Confirmed by Rajeev CHILDERS, Flavio Singleton ([id number]) on 12/25/2018 7:27:12 PM
[2018-12-24] MEDS: ROCEPHIN 2 GM in NS 50 ML IV SCH (09:04)
[2018-12-24] MEDS: KLONOPIN PO SCH ×2 (09:05→22:00)
[2018-12-24] MEDS: MYCOSTATIN POWDER TOP SCH ×2 (09:05→22:01)
[2018-12-24] MEDS: HEPARIN SUBQ SCH ×2 (09:05→22:01)
[2018-12-24] MEDS: ASPIRIN NG SCH (09:05)
[2018-12-24] MEDS: LYRICA PO SCH ×3 (09:05→22:00)
[2018-12-24 09:22] LABS: BILIRUBIN URINE NEGATIVE (NEGATIVE); BLOOD URINE NEGATIVE (NEGATIVE); COLOR STRAW; GLUCOSE URINE NEGATIVE (NEGATIVE); KETONE URINE NEGATIVE (NEGATIVE); LEUKOCYTES URINE NEGATIVE (NEGATIVE); NITRITE URINE NEGATIVE (NEGATIVE); PROTEIN URINE NEGATIVE (NEGATIVE); SP GRAVITY URINE 1.001; TURBIDITY URINE CLEAR (CLEAR); URINE SOURCE CLEAN CATCH; UROBILINOGEN URINE NORMAL (NORMAL)
[2018-12-24 09:23] LABS: UR EPITHELIAL CELLS <10 /HPF (<10); URINE BACTERIA NEGATIVE /HPF; URINE RBC <10 /HPF (<10); URINE WBC <10 /HPF (<10)
--- NOTE | 2018-12-24 09:47 | NEPHROLOGY PROGRESS NOTE ---
DATE: 12/24/2018 SUBJECTIVE: Patient is sitting up in bed. She states that she has been able to get up out of bed and ambulate to the bathroom without assistance. OBJECTIVE: Vital Signs: Temperature 98.5 degrees, pulse 94, respiratory rate 19, blood pressure 165/96. Intake 400 mL. Output 1.6 L. General: This is a middle-aged female, resting in bed. She is awake and alert. She does not appear in distress. HEENT: Normocephalic, atraumatic. Oral mucosa moist. Pupils are equal and reactive. Neck: Supple, thick, no JVD discerned. Cardiovascular: Reveals a regular rate and rhythm. There is no gallop or murmur appreciated. Pulmonary: She has equal excursion. She is clear bilaterally. Abdomen: Obese soft with positive bowel sounds. : She is voiding. Extremities: She has trace pedal edema as well as some trace upper extremity edema. There is no overt pitting. Integumentary: Skin is pale, warm, and dry. LAB DATA: WBC of 10.4, hemoglobin 12.5. Sodium 142, potassium 3.7, CO2 22, creatinine 3.7. (3.3, 2.5,2.1). ASSESSMENT AND PLAN: Acute kidney injury, likely acute tubular necrosis. I have reordered her urine studies today. She had imaging ordered. Her urine output is adequate and likely acute tubular necrosis secondary to bacteremia. The patient is on ceftriaxone. No changes need to be made to that. The patient does not have indications for intervention such as dialysis at this time. We will continue to check her labs daily. I did discuss with the patient that if her numbers did trend to the degree that she needed intervention we would already be discussing that with her. Dictated by TYLER Parks for Brandt Gleason MD Face to face encounter, data reviewed, discussed with Yoselin Burciaga on 12/24/18. I agree with the above assessment and plan of care. cc: Brandt Gleason MD [facility]
[2018-12-24 10:15] LABS: UR CREAT RANDOM 24.6 mg/dL (11-20)
--- NOTE | 2018-12-24 10:27 | ECHO REPORT ---
ORDER DATE: 12/20/2018 SUMMARY: 1. Study is performed with intravenous echocontrast agent Optison to enhance endocardial definition for purposes of assessment of left ventricular function and wall motion. 2. Left ventricle is normal size with normal wall thickness. Estimated left ventricular ejection fraction appears to be at least 65%. No regional wall motion abnormalities are evident. 3. Left atrium is normal size. CONCLUSIONS: Limited follow-up echocardiography with echocontrast agent Optison demonstrates normal left ventricular systolic function without wall motion abnormality evident. cc: Marcio Ordonez MD
[2018-12-24] MEDS ORDERED: LEXISCAN ONE (12:55)
[2018-12-24] MEDS ORDERED: ROCEPHIN 2 GM in NS 50 ML IV SCH (13:45)
--- NOTE | 2018-12-24 15:29 | Diag Imaging Result Doc PS360 ---
US RENAL 2 (RETROPER) COMPLETE - 12/24/2018 INDICATION: acute kidney injury TECHNIQUE: COMPARISON: 12/19/2018 FINDINGS: There is no hydronephrosis. Renal sizes are normal. The right kidney measures 13.5 x 4 x 5.4 cm. The left kidney measures 12.1 x 5.4 x 5.9 cm. Urinary bladder is grossly normal. IMPRESSION: Negative exam. Electronically signed by Sachin Ta 12/24/2018 3:26 PM
--- NOTE | 2018-12-24 15:50 | Diag Imaging Result Doc PS360 ---
MRI LUMBAR SPINE W/O CONTRAST - 12/24/2018 INDICATION: Lumbar radiculopathy COMPARISON: None FINDINGS: Alignment is anatomic. Bone marrow signal is hypercellular. There is some mild fatty degenerative marrow change at L2-L3. No fracture or subluxation. The conus is seen at L1 and is normal. There are mild multilevel degenerative endplate changes. At L1-L2 there is no stenosis. At L2-L3 there is a large disc bulge and severe facet hypertrophy. There is mild to moderate central canal stenosis. At L3-L4 there is no stenosis. There is some facet hypertrophy bilaterally. At L4-L5 there is significant facet and ligamentum flavum hypertrophy. No significant stenosis. At L5-S1 there is some facet hypertrophy but no stenosis. IMPRESSION: Moderate lumbar spondylosis. Electronically signed by Sachin Ta 12/24/2018 3:48 PM
[2018-12-24] MEDS ORDERED: XOPENEX NEB INH PRN (17:38)
[2018-12-24] MEDS ORDERED: NS NEB INH SCH (17:45)
--- NOTE | 2018-12-24 20:13 | PROGRESS NOTE ---
DATE: 12/24/2018 SUBJECTIVE: Ms. Horn had an episode of seeming to be difficult to arouse over the weekend. She was moved to [facility]. She has done well since then with no further episodes. Her report to me today is that she recalls being exhausted, taking her usual medicines, getting to sleep and then realizing someone was trying to wake her, and she was "fighting to wake up out of a dream." She believes she may have had similar episodes at home, and she reports being told by family that she is sometimes very difficult to wake. OBJECTIVE: She is awake, alert, attentive, appropriate, oriented. She seems cheerful. ASSESSMENT AND PLAN: I do not have any new thoughts or new suggestions from neurology standpoint. I encouraged her to take her medications as directed and to keep followup with her primary clinic after discharge. I will be glad to see her again, if needed. cc: Reva Washington III, MD MTDD
[2018-12-25 06:07] LABS: HEMOGLOBIN 13.2 g/dL (12.0-16.0); MCH 29.3 PG (27-31); MCHC 32.2 g/dL (33-37); MCV 91.1 FL (81-99); MPV 10.5 FL (7.4-10.4); RBC 4.5 XMIL (4.2-5.4); RDW 13.7 % (11.5-14.5); WBC 9.98 X1000 (4.8-10.8)
[2018-12-25 06:12] LABS: ALBUMIN 3.5 g/dL (3.5-5.0); CALCIUM 8.7 mg/dL (8.8-10.2); CREATININE 3.5 mg/dL (0.5-0.9); PHOSPHORUS 5.4 mg/dL (2.7-4.5); POTASSIUM 3.6 mmol/L (3.5-5.1)
[2018-12-25] MEDS: PRILOSEC PO SCH (06:39)
--- NOTE | 2018-12-25 07:29 | Diag Imaging Result Doc PS360 ---
EXAM: CHEST-1 VIEW INDICATION: SOB TECHNIQUE: One view COMPARISON: 12/22/2018 FINDINGS: The lungs are grossly clear. There is no discrete pleural fluid collection or pneumothorax. The cardiomediastinal silhouette and central vasculature are grossly unremarkable. IMPRESSION: No evidence of acute pathology by plain radiograph. Electronically signed by Lucio Porras 12/25/2018 7:27 AM
[2018-12-25] MEDS: ASPIRIN NG SCH (09:30)
[2018-12-25] MEDS: NS 1,000 ML IV SCH (09:30)
[2018-12-25] MEDS: MYCOSTATIN POWDER TOP SCH ×2 (09:31→21:21)
[2018-12-25] MEDS: LYRICA PO SCH ×3 (09:31→21:21)
[2018-12-25] MEDS: HEPARIN SUBQ SCH ×2 (09:31→21:21)
[2018-12-25] MEDS: KLONOPIN PO SCH ×2 (09:31→21:21)
[2018-12-25] MEDS: ROCEPHIN 2 GM in NS 50 ML IV SCH (09:33)
--- NOTE | 2018-12-25 10:56 | PROGRESS NOTE ---
DATE: 12/25/2018 SUBJECTIVE: She presented with altered mental status. She is followed by Dr. Gianluca Méndez. A 48- year-old female with history of back pain, found unresponsive at home in the bed by her early in the day on 12/18/2018 between 3 and 5 p.m. The patient was subsequently brought to the ER. CT scan of the brain was noted to be unremarkable for any acute lesions. Her white count was elevated at 22,870. Initial pH showed 7.19. She was intubated and placed on mechanical ventilation. Urine drug screen was positive for oxycodone and benzodiazepine. At the time not much information could be obtained from the patient, so, admission for encephalopathy and it looks like she presented with sepsis or possible sepsis. She had a chest x-ray which showed slight worsening of hazy infiltrate in the left lung base. Abdominal ultrasound limited study hepatic steatosis. Dr. Washington was asked to see. Transient altered awareness of uncertain etiology, may have been drug effected. Elevated liver enzymes were noted. Wonder if some of this could be chronic. She came back to normal appearance on neurologic exam fairly quickly. Cardiology was consulted. There was slight nonspecific elevation of troponin in the setting of respiratory failure, doubt acute coronary artery syndrome and suspected sepsis. The patient has showed steady improvement. Infectious disease was asked to see. She had bacteremia, 1 of 2 blood cultures grew Strep mitis which is viridans Strep. With blood culture first returned positive, it was felt that it was Streptococcus pneumoniae. However, further workup showed that it was Strep mitis. Since only 1 of 2 cultures were positive, suspect it was contaminant; but there is also the possibility of true bacteremia. The patient was very sick on presentation. Renal ultrasound on 12/24 negative exam. Chest x-ray from this morning no evidence of acute path. She feels much better today and wants to begin some physical therapy. ASSESSMENT AND PLAN: 1. Acute hypoxemic respiratory failure, status post extubation. She is doing very well respiratory grissom, good air and gas exchange. 2. Bacteremia secondary to Streptococcus mitis. Continue Rocephin. 3. Acute kidney injury likely acute tubular necrosis. IV fluids are still going. Urine output is good. Renal function is improved. 4. Diarrhea. Checking stool studies. 5. Elevated troponin. I think the patient has undergone stress test. 6. Morbid obesity. Patient consulted about weight loss and proper diet. 7. Vitamin D deficiency. 8. Transaminitis which is improved. 9. Anxiety disorder. She continues on Klonopin. 10.Chronic back pain. Patient has pain with radiculopathy. I think she had MRI of the lumbar spine done. We will review those. 11.DVT prophylaxis. 12.We will see if we can get physical therapy to start walking her around. 13.On review of orders she is on aspirin 81 mg a day, heparin 5000 units subcu q 12, ceftriaxone 2 grams IV q 24 hours, Klonopin 1 mg b.i.d., Vitamin D 50,000 units p.o. q day, labetalol and hydralazine used p.r.n. high blood pressure, normal saline going at 100 mL per hour, Prilosec 20 mg a day, Lyrica 100 mg p.o. I think 3 times a day. We will initiate some physical therapy and start seeing how she does with ambulation. cc: Flavio Boo MD
[2018-12-26 05:08] LABS: BLOOD TYPE ARTERIAL; SAMPLE BLOOD
[2018-12-26 05:09] LABS: ALLEN TEST YES; BE -2.8 mmoll (-3.0-3.0); HCO3-(ACT) 22.7 mmoll (20.0-26.0); METHB 0.9 % (0.0-1.5); O2HB 96.1 % (95.0-99.0); PCO2(98.6) 37 mmHg (35-45); PO2(98.6) 86 mmHg (60-100); SAO2 98.5 % (95.0-100.0); THB 14.8 g/dL (11.5-17.4); pH(98.6) 7.38 (7.35-7.45)
[2018-12-26 05:10] LABS: MODALITY ROOM AIR
[2018-12-26] MEDS: PRILOSEC PO SCH (06:05)
[2018-12-26] MEDS: LYRICA PO SCH ×3 (08:40→21:27)
[2018-12-26] MEDS: ASPIRIN NG SCH (08:40)
[2018-12-26] MEDS: ROCEPHIN 2 GM in NS 50 ML IV SCH (08:40)
[2018-12-26] MEDS: KLONOPIN PO SCH ×2 (08:40→21:27)
[2018-12-26] MEDS: HEPARIN SUBQ SCH ×2 (08:40→21:28)
[2018-12-26] MEDS: MYCOSTATIN POWDER TOP SCH ×2 (08:41→21:28)
[2018-12-26 08:44] LABS: ALBUMIN 3.4 g/dL (3.5-5.0); CALCIUM 8.7 mg/dL (8.8-10.2); CREATININE 3.3 mg/dL (0.5-0.9); PHOSPHORUS 5.2 mg/dL (2.7-4.5); POTASSIUM 3.7 mmol/L (3.5-5.1)
--- NOTE | 2018-12-26 11:38 | PROGRESS NOTE ---
DATE: 12/24/2018 SUBJECTIVE: The patient is resting comfortably in bed. He has no complaints at this time. OBJECTIVE: Vital Signs: Temperature 98.1 degrees, blood pressure 158/89, heart rate 75, respirations 16, O2 saturation 100% on room air. General: This is a morbidly obese female,. Lying in bed in no acute distress. Head: Normocephalic, atraumatic. Heart: S1, S2 normal. Regular rate and rhythm. Lungs: Clear to auscultation bilaterally. No wheezing. No rales. No rhonchi. Abdomen: Positive bowel sounds. Soft, nontender, nondistended. Extremities: No edema. No cyanosis. No calf tenderness. Neurologic: The patient is alert and oriented x4. DIAGNOSTIC STUDIES: White blood cell count 10, hemoglobin 12, hematocrit 37, platelets 265,000. Sodium 142, potassium 3.7, chloride 107, CO2 of 22, BUN 19, creatinine 0.7, glucose 114, calcium 8.1. ASSESSMENT AND PLAN: 1. Acute hypoxemic respiratory failure status post extubation. Resolved. 2. Bacteremia secondary to Streptococcus mitis. Continue on Rocephin. 3. Acute kidney injury. The patient's creatinine continues to rise. Hopefully it will plateau. Continue with current management as directed by the cover remover. 4. Elevated troponin. The patient is scheduled to undergo a stress test today. 5. Morbid obesity. The patient has been counseled about weight loss and proper diet. 6. Transaminitis. Stable. The patient has hepatic steatosis. 7. Anxiety disorder. Continue on Klonopin. 8. Chronic back pain. An MRI of the lumbar spine has been ordered to be done today. 9. Deep vein thrombosis prophylaxis. Continue on heparin. cc: Sonali Diaz MD
--- NOTE | 2018-12-26 14:07 | PROGRESS NOTE ---
DATE: 12/26/2018 SUBJECTIVE: Mrs. Horn is sitting up. She says she has been able to walk some. She has does feel pretty weak. Her breathing is good and comfortable. Bowels are moving. OBJECTIVE: Temperature 98.1 degrees, pulse 78, respirations 17, blood pressure 158/101, but her blood pressures have been between 154 and 162/65 to 101. Pupils are equal. No distended neck veins. Lungs are clear in all lung chandler, anterior and posterior. Cardiovascular regular rate without murmur or S3. Abdomen is soft. Skin is warm and dry. Urine output is 5000 mL. ASSESSMENT AND PLAN: 1. Acute hypoxemic respiratory failure status post extubation. Doing very well respiratory grissom, good air and gas exchange. 2. Bacteremia secondary Staphylococcus mitis. Continue Rocephin. 3. Acute kidney injury, acute tubular necrosis and renal function. Creatinine is around 3.5. Good urine output. I think she has some chronic underlying chronic kidney disease. 4. Diarrhea, which is resolved. Stool studies for white blood cells. There is a moderate amount of white blood cells and Clostridium toxin assay was negative. Clostridium antigen was negative as well. The patient is still pretty weak. We are going to continue physical therapy. Her chest x-ray from yesterday showed no evidence of acute pathology. No sign of infiltrates. REVIEW OF HER ORDERS: Right now she is on ceftriaxone 2 g IV q.24 hours. I will stop her antibiotic. Continue physical therapy. If we are not ready, we may need to pursue rehab. cc: Flavio Boo MD
--- NOTE | 2018-12-26 20:49 | Diag Imaging Result Document ---
PROCEDURE NAME: MYOCARDIAL PERF SCAN, STR/REST - 12/24/2018 INDICATION: Patient with elevation of troponin levels. Question of myocardial infarction. DESCRIPTION: The patient came in to the nuclear lab and received a rest injection of technetium 99 sestamibi 16 mCi. Multiple tomographic views of the cardiac structures were obtained at rest. Subsequently the patient underwent a Lexiscan infusion, and 0.4 mg were infused. At peak infusion she was injected with technetium 99 sestamibi 46.3 mCi. Multiple tomographic views of the cardiac structures were obtained following the completion of the exercise protocol. SUMMARY OF THE ELECTROCARDIOGRAPHIC PORTION OF THE STUDY: Resting ECG showed sinus rhythm, rate 70 beats per minute, resting blood pressure 162/102. Resting ECG showed a nonspecific T-wave in the precordial leads. During the protocol, the heart rate increased to a maximum of 127 beats per minute. That represents 73% of maximum predicted heart rate for the patient's age. Blood pressure dropped to 108/60. The patient reported no chest pain, shortness of breath or palpitations. ECG showed no significant changes. Following the completion of the test, heart rate and blood pressure returned back to baseline. In summary, electrocardiographic response to infusion of Lexiscan is normal. SUMMARY OF THE MYOCARDIAL PERFUSION PORTION OF THE STUDY: Post-stress tomographic views of the left ventricle showed normal homogeneous distribution of radiotracer throughout the entire left ventricular function myocardium. There is no evidence of any post-stress defect. Rest images showed normal perfusion. Polar plots revealed the same. No evidence of any inducible ischemia. No myocardial scar. Gated SPECT showed normal left ventricular systolic function, ejection fraction 70%. Normal ventricular volumes. No wall motion abnormality. Lung/heart ratio is normal. The TID is normal. SUMMARY: This study shows: 1. Normal electrocardiographic response to infusion of Lexiscan. 2. Normal post-stress myocardial perfusion scan. There is no scintigraphic evidence of pharmacologically induced myocardial ischemia. 3. Normal left ventricular systolic function. Ejection fraction estimated at 70% with normal ventricular volumes, no wall motion abnormality. This study represents low risk for ischemic events. cc: MD Marcio Perry MD
--- NOTE | 2018-12-26 21:29 | PROGRESS NOTE ---
DATE: 12/25/2018 SUBJECTIVE: Patient continues without chest discomfort or shortness of breath. OBJECTIVE: Vital Signs: Blood pressure 154/65, heart rate 77, oxygen saturation 100% on room air. There is no significant jugular venous distention. Chest: Clear to auscultation. Cardiac: Reveals a regular rate and rhythm without appreciable murmur or gallop. There is no evidence of peripheral edema. LABORATORY DATA: Includes a white blood cell count 9.98, hematocrit 41.0, hemoglobin 13.2, platelet count 239,000. Sodium 144, potassium 3.6, chloride 106, carbon dioxide 21, BUN 21, creatinine 3.5, glucose 92. IMPRESSION: 1. Recent acute hypoxemic respiratory failure. Patient clinically improved. 2. Bacteremia secondary to streptococcal species. 3. Acute kidney injury probably due to acute tubular necrosis. Renal function slowly improving. 4. Very mildly elevated troponin. Echocardiography with contrast indicated normal left ventricular ejection fraction. Lexiscan myocardial perfusion study yesterday negative for evidence of inducible myocardial ischemia. 1. Morbid obesity. 2. Chronic pain disorder with chronic back pain. 3. Anxiety disorder. RECOMMENDATIONS: Patient reassured regarding results of echocardiography showing normal left ventricular ejection fraction and negative Lexiscan myocardial perfusion study. I suspect her acute respiratory failure is more likely noncardiac in origin. No further cardiology recommendations at this point. I will see her further on an as needed basis. cc: Marcio Ordonez MD
[2018-12-27 06:01] LABS: CALCIUM 8.6 mg/dL (8.8-10.2); CREATININE 3.4 mg/dL (0.5-0.9); POTASSIUM 3.5 mmol/L (3.5-5.1)
[2018-12-27 06:02] LABS: ALBUMIN 3.3 g/dL (3.5-5.0); PHOSPHORUS 5.3 mg/dL (2.7-4.5)
[2018-12-27] MEDS: PRILOSEC PO SCH (06:10)
--- NOTE | 2018-12-27 06:43 | INFECTIOUS DISEASE PROGRESS NO ---
DATE: 12/25/2018 PRESENT ILLNESS: The patient has a Streptococcal bacteremia. MEDICATIONS: The patient is receiving IV Rocephin. The patient has repeat blood cultures, which are pending, therefore, the patient does not at this time have any time that is counted with the antibiotic until such time as the blood cultures turn negative and then from that day on we can count the time with Rocephin. PHYSICAL EXAMINATION: Vital signs: Temperature is 98.3, pulse 68, respirations 21, blood pressure 158/98. General: This is an obese middle-aged female. She is in no acute distress. Head, Eyes, Ears, Nose, and Throat: She can hear my spoken words and see near objects. She has rosacea. Neck: No meningismus. Lungs: Clear to auscultation. Cardiovascular: Heart rate is regular. Abdomen: Soft and not tender. Neurologic: The patient was sleeping. She was fully arousable. She can move her extremities. There is no tremor. Bones, joints, muscles: No swollen joints or muscle tenderness. LABORATORY AND X-RAY: The patient's chest x-ray and renal ultrasound are normal. The patient's CBC shows a white count of 10,430, hemoglobin 12.5, platelet count 265,000. Creatinine is 3.7, GFR is 13. Urinalysis showed no white cells or bacteria. TEO screen was negative. Repeat blood cultures are pending. Stool for Clostridium difficile toxin and antigen was negative. Stool for white blood cells was moderately positive. An echocardiogram showed no valvular vegetations. ASSESSMENT AND PLAN: The patient has Streptococcal bacteremia. The exact origin of the bacteremia is uncertain to me. The patient's repeat blood cultures are still pending. An echocardiogram showed no valvular vegetations. When the patient's repeat blood cultures are sterile then I will be counting the time that the patient is on Rocephin with a first day that the repeat blood cultures are negative being day number 1. PATIENT'S COMORBIDITIES: The patient's comorbidities include obesity, myocardial infarction, and hypertension. cc: Chadwick Helms MD MTDDustin
--- NOTE | 2018-12-27 06:51 | INFECTIOUS DISEASE PROGRESS NO ---
DATE: 12/26/2018 PRESENT ILLNESS: The patient has Streptococcal bacteremia. MEDICATIONS: The patient is on Rocephin. PHYSICAL EXAMINATION: Vital signs: Temperature is 98.3, pulse 87, respirations 18, blood pressure is 157/88. General: This is an obese middle-aged female. She is in no acute distress. Head, Eyes, Ears, Nose, and Throat: She can hear my spoken words and see near objects. She has an erythematous face due to her having rosacea. Neck: No meningismus. Cardiovascular: Heart is regular. Lungs: Clear to auscultation. Abdomen: Soft and nontender. Neurologic: The patient is alert. She can move her extremities. There is no tremor. LABORATORY AND X-RAY: A chest x-ray showed no pulmonary edema and no infiltrates. Lab studies done show a CBC with a white count of 9980, hemoglobin 13.2, and platelet 239,000. Blood gases show a pH of 7.38, a pO2 of 86, a pCO2 of 37. Creatinine is 3.5, GFR is 14. Repeat blood cultures are pending. An echocardiogram shows that there is no vegetations on any of the heart valves. There also is not a pericardial effusion. ASSESSMENT AND PLAN: Patient has Streptococcal bacteremia. I plan to continue with Rocephin. Day 1 of treatment with Rocephin will be the first day that the patient's repeat blood cultures are sterile. COMORBIDITIES: I really did not find any definite comorbidities. She is obese but that would not necessarily be a factor in her having Streptococcal bacteremia. cc: Chadwick Helms MD
--- NOTE | 2018-12-27 07:21 | DISCHARGE SUMMARY ---
ADMISSION DATE: 12/18/2018 DISCHARGE DATE: PLAN TO DISCHARGE: 12/27/2018. PHYSICIAN: Gianluca Méndez MD. HISTORY OF PRESENT ILLNESS: Presented with altered mental status. This is a 48-year-old female with a history of back pain. Found unresponsive at home in bed by her earlier in the day on 12/18/2018 between 3 and 5 p.m. The patient subsequently was brought to the emergency room. CT of the brain noted to be unremarkable for any acute lesions. Her white count was 22,870. Initial pH was 7.19. The patient was intubated and placed on mechanical ventilation. Urine drug screen was positive for oxycodone and benzodiazepine. No further information at that time could be obtained from the patient. ALLERGIES: No known drug allergies. LIST OF MEDICATIONS: She is on: 1. Vitamin D. 2. Klonopin. 3. Codeine. 4. Promethazine liquid. 5. Cyclobenzaprine. 6. Dexamphetamine 20 mg, I think, as directed. 7. Lexapro 20 mg a day. 8. Gabapentin 300 mg, not sure how often. 9. Omeprazole. 10. Pramoxine. HOSPITAL COURSE: 1. The patient was admitted with encephalopathy, suspected it was toxic. Drug screen positive for oxycodone and benzodiazepine. We considered infectious etiology and suspected possible sepsis. 2. Probable sepsis. Obtain cultures and broad-spectrum antibiotics. 3. Respiratory failure. Put on the ventilator and was slowly improved, and able to wean off the ventilator. 4. Elevated troponin. [place] this was probably related to demand ischemia rather than coronary lesions but initially could not rule out non-ST segment elevation myocardial infarction. 5. Rise in proBNP. Plan was to get an echocardiogram to look at left ventricular function. 6. Abnormal liver function tests. Checked hepatitis profile and a ferritin level as well as abdominal ultrasound. The patient's chest x-ray on 12/19/2018, slight worsening of hazy infiltrate in the left lung base. Abdominal ultrasound on 12/19/2018, limited study but could appreciate hepatic steatosis. Dr. Washington was consulted. [place] transient altered awareness, uncertain etiology. May have been from drug effect, elevated liver enzymes, may consider chronic condition of liver dysfunction. In light of her quick recovery and normal neurologic appearance, felt it was probably more toxic. Dr. Marcio Ordonez, cardiology, was consulted. Slight nonspecific elevation of troponin in the setting of respiratory failure. Did not feel this was coronary artery syndrome. Suspect slight elevation of troponin more likely related to hypoxemic respiratory failure requiring intubation related to excessive sedative medications. Pulmonary was consulted and collected sputum cultures and awaited on blood cultures. There is a slight hazy infiltrate in the chest x-ray along with some significant leukocytosis. The patient showed steady improvement. Chest x-ray on 12/20/2018 showed some mild pulmonary edema. Echocardiogram on 12/20/2018, limited but the left ventricular ejection fraction appeared to be 65%. Left ventricle was normal size and normal wall thickness. Infectious disease was asked to see. One of two blood cultures grew out Streptococcus mitis, which is a viridans streptococcus. When the blood culture first turned positive, felt it was Streptococcus pneumoniae. Further workup and positive blood culture showed Streptococcus mitis. Since only one of two cultures were positive, this could be a contaminant, but treated her for probable bacteremia and even sepsis. She showed steady improvement. Renal ultrasound was done on 12/24/2018 which was basically normal. Her myocardial perfusion scan was done and normal. EKG, normal post-stress myocardial perfusion scan. No evidence of pharmacologically induced myocardial ischemia. Normal left ventricular systolic function. Ejection fraction of 70% estimation. She showed steady improvement and felt she was ready go home on 12/27/2018. Plan is to continue to treat with an antibiotic for a couple more weeks. Her blood counts on the , sodium 145, potassium 3.5, chloride 107, BUN was 24, creatinine 3.4. Note that her creatinine stayed at about 3.4 and suspect some acute tubular necrosis, and hopefully that will return. She is eating and drinking. Her bowels are moving well. DISCHARGE MEDICATIONS: She will be on aspirin 81 mg a day. I think we are going to continue the ceftriaxone 2 g IV q.24 hours for another couple weeks. We will try and set that up for her to get home infusions or else to come to the clinic. Klonopin 1 mg b.i.d. vitamin D 50,000 units weekly, Lyrica 100 mg 3 times a day, Prilosec 20 mg daily. DISCHARGE INSTRUCTIONS: I would recommend home health and continue physical therapy. cc: Flavio Boo MD
[2018-12-27 07:29] LABS: PROTIME 11.4 Seconds (11.0-16.0)
[2018-12-27] MEDS: LYRICA PO SCH ×3 (08:09→21:16)
[2018-12-27] MEDS: HEPARIN SUBQ SCH ×2 (08:09→21:16)
[2018-12-27] MEDS: ASPIRIN NG SCH (08:09)
[2018-12-27] MEDS: MYCOSTATIN POWDER TOP SCH (08:10)
[2018-12-27] MEDS: KLONOPIN PO SCH ×2 (08:10→21:16)
[2018-12-27] MEDS: ROCEPHIN 2 GM in NS 50 ML IV SCH (08:11)
[2018-12-27 08:32] LABS: INR 0.77
[2018-12-27] MEDS ORDERED: NS 250 ML ONE (09:02)
[2018-12-27] MEDS: APRESOLINE IV PRN (11:47)
--- NOTE | 2018-12-27 12:48 | INFECTIOUS DISEASE PROGRESS NO ---
DATE: 12/27/2018 PRESENT ILLNESS: The patient has a streptococcal bacteremia. MEDICATIONS: The patient is on Rocephin 2 g IV daily. PHYSICAL EXAMINATION: Vital Signs: Temperature is 98.2 degrees, pulse 88, respirations 17, blood pressure 149/80. General: This is an obese, ill-appearing, middle-aged female. She is in no acute distress. Head, eyes, ears, nose, and throat: She can hear my spoken words and see near objects. She does not have any white coating on her tongue. Neck: No meningismus. Lungs: Clear to auscultation. Cardiovascular: Heart rate is regular. Integument: Under both breasts there is an erythematous rash which is fading. It is felt to be due to fungus, specifically cheryl. Abdomen: Soft and nontender. Neurologic: Patient is alert. She can move her extremities. There is no tremor. LAB AND X-RAY: There is no new lab or x-ray for today. ASSESSMENT AND PLAN: The patient has a streptococcal bacteremia. The plan is to send the patient home. She will be sent home on Rocephin 2 g IV daily. I have gone ahead and requested that a PICC be placed and also that a ProTime be checked and then I have requested social service to set up home IV antibiotics with Rocephin 2 g IV daily for 14 days. Finally, I have requested that the patient have an appointment in my office in 2 weeks. As regarding the patient's presumed cheryl dermatitis under both breasts, I have instructed her to get Lotrimin and get the generic of Lotrimin which is clotrimazole and get the cream of that and put it under the breasts where the rash is twice a day until the rash disappears. COMORBIDITIES: She is obese. She has had a myocardial infarction. cc: Chadwick Helms MD
--- NOTE | 2018-12-27 17:02 | NEPHROLOGY PROGRESS NOTE ---
DATE: 12/27/2018 SUBJECTIVE: She slept well. No shortness of breath. She has been up out of bed without nausea, vomiting or difficulty ambulating. She anticipates discharge today. OBJECTIVE: Vital Signs: Blood pressure 153/83, heart rate 75, respirations 20, afebrile. General: No acute distress. Skin: Warm and dry. Neck: Neck veins are not distended. Trachea is midline. Heart: Regular. Lungs: Equal. No crackles. Abdomen: Obese, soft, nontender. Bowel sounds present. Extremities: With no edema, clubbing or cyanosis. IMPRESSION: Acute kidney injury. Acute tubular necrosis in the context of sepsis. Her creatinine has been stable over the last 4 days. I encouraged her to drink at least 2 quarts a day when she is discharged, and she needs to have labs on Mondays and Fridays and then see us within 2 weeks. We will arrange for that. I discussed this directly with Dr. Boo. cc: Brandt Gleason MD
--- NOTE | 2018-12-27 18:42 | NEPHROLOGY PROGRESS NOTE ---
DATE: 12/25/2018 SUBJECTIVE: She is asleep but easily arousable. No complaints today. No chest pain, nausea, shortness of breath, etc. OBJECTIVE: Vital Signs: Blood pressure 172/87, heart rate 63, respirations 20, afebrile. General: No acute distress. Skin: Warm and dry. Neck: Neck veins are not distended. Heart: Regular. No gallops. Lungs: Equal. No crackles. Extremities: Have no edema, clubbing or cyanosis. IMPRESSION: Acute kidney injury. Normal urine output. Euvolemic on exam. Creatinine is 3.5 today, modest improvement. I will stop her fluids today but no other changes. cc: Brandt Gleason MD
[2018-12-28] MEDS: PRILOSEC PO SCH (06:12)
[2018-12-28 06:39] LABS: ALBUMIN 3.3 g/dL (3.5-5.0); CALCIUM 8.7 mg/dL (8.8-10.2); CREATININE 2.9 mg/dL (0.5-0.9); PHOSPHORUS 5.7 mg/dL (2.7-4.5); POTASSIUM 3.6 mmol/L (3.5-5.1)
[2018-12-28] MEDS: LYRICA PO SCH (09:24)
[2018-12-28] MEDS: HEPARIN SUBQ SCH (09:24)
[2018-12-28] MEDS: ROCEPHIN 2 GM in NS 50 ML IV SCH (09:24)
[2018-12-28] MEDS: KLONOPIN PO SCH (09:24)
[2018-12-28] MEDS: ASPIRIN NG SCH (09:25)
[2018-12-28 11:36] VITALS: BP 157/93
--- NOTE | 2018-12-28 12:12 | DISCHARGE SUMMARY ---
ADMISSION DATE: 12/18/2018 DISCHARGE DATE: 12/28/2018 ADDENDUM: She is ready to go. Antibiotics have been lined up for home. Please see full discharge summary, but she is okay to go home today. cc: Flavio Boo MD
--- NOTE | 2018-12-28 17:12 | INFECTIOUS DISEASE PROGRESS NO ---
DATE: 12/28/2018 PRESENT ILLNESS: Ms. Horn is being treated for a streptococcal bacteremia. She also has a fungal dermatitis under her breasts bilaterally. MEDICATIONS: She is receiving Rocephin 2 g IV daily. Today is day 4 of treatment. PHYSICAL EXAMINATION: Vital Signs: Temperature is 98.7 degrees, pulse rate 82, respiratory rate 18, blood pressure 154/90, O2 saturations 99% on room air. General: This is a middle-aged morbidly obese female. She is lying in bed currently in no acute distress. HEENT: Atraumatic, normocephalic. Oral mucous membranes are pink and moist. Conjunctivae are pink. Neck: Supple. Trachea is midline. Cardiovascular: Heart rate and rhythm are regular. Normal sinus rhythm on the monitor. Respiratory: Lung sounds are clear to auscultation bilaterally. Abdomen: Soft, obese and nontender. Bowel sounds are active. Neurologic: She is awake, alert, oriented, ambulating without assistance. No tremor is noted. Integumentary: There is a PICC line in place to the right upper arm. The site is without edema, erythema or drainage. LABORATORY AND X-RAY: No CBC today but her creatinine has improved mildly at 2.9 and GFR 17. Her original blood cultures grew a Strep mitis in 1/2 cultures, sterile blood cultures were obtained on 12/24/2018. No imaging reports today. ASSESSMENT AND PLAN: Ms. Horn is being treated for a streptococcal bacteremia. The plan is for her to hopefully go home today. She will need 14 total days of Rocephin 2 g IV daily for the streptococcal bacteremia treatment which she will be receiving at home. We will see her in the office in 2 weeks and hopefully at that time we will be able to take out her PICC line. The patient has had a mild fungal rash under her breasts and has been receiving nystatin powder for that in the hospital. She has been instructed to get Lotrimin cream [id number] to use at home under her breasts twice a day until the rash is gone. These plans have been discussed with and recommended by Dr. Helms. COMORBIDITIES: Include that she is morbidly obese with acute kidney injury and coronary artery disease. Dictated by TYLER Trent for Chadwick Helms MD cc: Chadwick Helms MD [facility] MEDICAL CENTERDustin
--- NOTE | 2018-12-28 17:13 | NEPHROLOGY PROGRESS NOTE ---
DATE: 12/28/2018 SUBJECTIVE: She is resting in bed. No new complaints. OBJECTIVE: Vital Signs: Blood pressure 154/90, heart rate 82, respiration 18, afebrile. General: No acute distress. Skin: Warm and dry. Conjunctivae are pink. Neck: Neck veins are not visible. Heart: Regular. Lungs: Equal. No crackles. Abdomen: Soft. Bowel sounds are present. Extremities: Have no edema, clubbing, or cyanosis. IMPRESSION: Acute kidney injury. Creatinine is improving today. Volume status is acceptable. She will be followed as an outpatient. No adjustments are required today. cc: Brandt Gleason MD
== END 2018-12-28 12:40 | disposition home health service (06) | DRG 917 ==
LOC: SUPCPDRO → ED 17:43 → ICU 17:43 → OBSVTOIN 21:59 → SUATTDRO 21:59 → 3N 12-21 03:35 → 3S 12-21 17:01 → 4N 12-27 18:03
PROVIDERS: ATTEND Emergency Medicine
CPT/HCPCS: 31500; 36569; 51702; 70450; 71010; 71045; 72148; 76700; 76770; 78452; 80048; 80053; 80061; 80069; 80074; 80076; 80101; 80301; 80307; 80320; 80324; 80345; 80346; 80353; 80358; 80361; 80365; 81001; 82055; 82140; 82306; 82550; 82570; 82728; 82805; 82948; 83605; 83630; 83735; 83880; 83935; 83992; 84100; 84156; 84300; 84443; 84484; 84540; 85025; 85027; 85610; 85651; 86038; 86039; 86140; 87040; 87070; 87077; 87088; 87186; 87205; 87324; 87449; 89055; 93005; 93010; 93017; 93306; 93308; 94003; 94640; 94761; 94762; 95816; 96361; 96365; 96375; 97161; 99285; 99291; A9270; A9500; C8924; C9113; G0431; G0434; G0479; G0480; G6040; J0330; J0360; J0696; J1644; J1650; J2020; J2060; J2270; J2543; J2785; J3370; J3475; J7030; J7040; J7050; Q9956; S0164; XXXXX

== ENCOUNTER 2019-10-11 15:18 | Inpatient (IN) ==
[2019-10-11] MEDS ORDERED: NS 1,000 ML IV ONE ×2 (15:59→17:22)
[2019-10-11] MEDS ORDERED: ZOFRAN IV ONE (15:59)
[2019-10-11] MEDS ORDERED: DILAUDID IV ONE (15:59)
[2019-10-11 16:35] LABS: INR 1.08; PROTIME 14.6 Seconds (11.0-16.0)
[2019-10-11 16:36] LABS: PTT 33.7 Seconds (22.3-41.8)
[2019-10-11 17:06] LABS: ALBUMIN 2.9 g/dL (3.5-5.0); CALCIUM 9.8 mg/dL (8.8-10.2); CREATININE 3.8 mg/dL (0.5-0.9); TOTAL BILIRUBIN 1.5 mg/dL (0.20-1.00); TOTAL PROTEIN 5.9 g/dL (6.3-8.3)
[2019-10-11 17:17] LABS: BASO# 0.12 X1000 (0.0-0.2); BASO% 0.2 % (0.0-0.8); EOS# 0.02 X1000 (0.0-0.7); HEMATOCRIT 55.3 % (37.0-47.0); HEMOGLOBIN 19.9 g/dL (12.0-16.0); IMM GRAN# 1.39 X1000 (0.0-0.04); IMM GRAN% 2.7 % (0.0-0.5); LYMPH# 3.53 X1000 (1.2-3.4); LYMPH% 6.8 % (20.5-51.1); MCH 28.6 PG (27-31); MCV 79.3 FL (81-99); MONO# 8.01 X1000 (0.11-0.59); MONO% 15.4 % (1.7-9.3); MPV 12.2 FL (7.4-10.4); NEUT# 39.02 X1000 (1.4-6.5); NEUT% 74.9 % (42.2-75.2); PLT 709 X1000 (130-400); RBC 6.97 XMIL (4.2-5.4); RDW 13.2 % (11.5-14.5); WBC 52.09 X1000 (4.8-10.8)
[2019-10-11] MEDS ORDERED: ZOSYN 2.25 GM in NS 50 ML IV ONE (17:22)
[2019-10-11 17:57] LABS: LYMPHS 16 % (21-51); SEGS 66 % (42-75)
[2019-10-11 17:58] LABS: ATYPICAL LYMPH 4 %; MONO 14 % (1-9); POLYCHROM 2+
[2019-10-11] MEDS ORDERED: VANCOMYCIN IV PER PHARMACY MISC SCH (18:00)
[2019-10-11] MEDS ORDERED: TYLENOL PO PRN ×2 (18:03→23:57)
[2019-10-11] MEDS ORDERED: ZOFRAN IV PRN (18:03)
[2019-10-11] MEDS ORDERED: LOPRESSOR PO ONE (18:06)
[2019-10-11] MEDS ORDERED: APRESOLINE IV PRN ×2 (18:06→23:57)
[2019-10-11] MEDS ORDERED: NS 1,000 ML IV SCH ×2 (18:15→23:00)
[2019-10-11] MEDS ORDERED: ZOSYN 3.375 GM in NS 50 ML IV SCH (18:15)
--- NOTE | 2019-10-11 18:25 | Diag Imaging Result Doc PS360 ---
CHEST-1 VIEW - 10/11/2019 INDICATION: fever COMPARISON: 01/06/2019 FINDINGS: The lungs are normally expanded and clear. Heart size and mediastinal contours are normal. No pneumothorax or pleural effusion. IMPRESSION: Negative exam. Electronically signed by Sachin Ta 10/11/2019 6:22 PM
--- NOTE | 2019-10-11 18:29 | EKG Report ---
Test Performed on : 10/11/2019 6:12:18 PM Test Reason : SOB Blood Pressure : / mmHG Vent. Rate : 116 BPM Atrial Rate : 116 BPM P-R Int : 120 ms QRS Dur : 080 ms QT Int : 322 ms P-R-T Axes : 057 059 059 degrees QTc Int : 447 ms Sinus tachycardia. Otherwise normal ECG When compared with ECG of 06-JAN-2019 02:05, T wave inversion no longer evident in Inferior leads Unconfirmed Result
--- NOTE | 2019-10-11 18:46 | Diag Imaging Result Doc PS360 ---
CT ABDOMEN/PELVIS W/O CONTRAST - 10/11/2019 INDICATION: n/v/d, leukocytosis, gen abd pain, fever COMPARISON: None FINDINGS: The lung bases are clear and the heart size is normal. There is severe diffuse fatty change of the liver. The stomach is very distended primarily with fluid. No bowel obstruction otherwise. No radiodense renal stones. No hydronephrosis or hydroureter. Other abdominal organs are normal. There is severe skin thickening and extensive indistinct subcutaneous edema along the right flank, buttock, and upper thigh. No soft tissue gas, foreign body, or drainable fluid collections. Uterus is absent. Urinary bladder and rectum are normal. There are moderate degenerative changes of the spine. No acute or suspicious bony lesion. IMPRESSION: 1. Extensive right flank, buttock, and upper thigh edema compatible with cellulitis. 2. Severe fatty liver. 3. Moderate fluid distention of the stomach. This may reflect gastroparesis. This exam was performed using automated exposure control, adjustment of mA or kV according to patient size, and/or use of iterative reconstruction technique Electronically signed by Sachin Ta 10/11/2019 6:44 PM
--- NOTE | 2019-10-11 19:44 | PROVIDER DOCUMENTATION ---
This chart was entered by Nina Lynn Scribe, acting as scribe for Serafin Shea CRNP. HPI-Abdominal Pain/GI Problem - General Chief Complaint: Nausea/Vomiting Stated Complaint: PAIN ALL OVER Time Seen by Provider: 10/11/19 15:30 Source: patient Allergies/Adverse Reactions: Patient Allergies Allergy/AdvReac Type Severity Reaction Status Date / Time morphine AdvReac HEADACHE Verified 02/22/19 19:39 Home Medications: Home Medication List Medication Instructions Recorded Confirmed Last Taken Type Clonazepam [Klonopin] 1 mg PO BID 05/02/16 12/19/18 Unknown History Omeprazole [Prilosec] 40 mg PO DAILY@0700 05/02/16 12/19/18 Unknown History Duloxetine [Cymbalta] 60 mg PO DAILY 12/19/18 12/19/18 Unknown History Pregabalin [Lyrica] 100 mg PO TID 12/19/18 12/19/18 Unknown History Aspirin 81 mg NG DAILY chewtab 12/27/18 Unknown Rx Clonazepam [Klonopin] 1 mg PO BID tab 12/27/18 Unknown Rx Ergocalciferol (Vitamin D2) 50,000 unit PO Q7D cap 12/27/18 Unknown Rx [Vitamin D] Amlodipine Besylate [Norvasc] 5 mg PO DAILY #14 tab 01/06/19 Unknown Rx Tramadol [Ultram] 50 mg PO Q8HR #14 tab 02/22/19 Unknown Rx - History of Present Illness-ABD Nature of Presenting Problems: Pt is a 49 yowf presenting in the ED with c/o n/v/d and generalized cramping that started 3 days ago and a fever yesterday of 102. Also reports SOB. Pt states that she went to go to the bathroom and fell and hit her right hip and has a bruise and pain there. Pt says she had a knot on her hip before she fell and pt states it hurts worse now. Pt is alert and anxious in ED. Abdominal Pain Onset Location: reports: generalized abdomen (cramping), other (right hip) Quality of Pain: reports: cramping, throbbing (right hip) Severity in ED: reports: moderate Onset/Duration: reports: abrupt, 24 hours ago (fever and pain in hip), 3 days ago (n/v/d) Timing: reports: still present, constant Activities at Onset: reports: light activity Associated Symptoms: reports: diarrhea, nausea, shortness of breath, vomiting. denies: constipation, fever/chills, trouble walking Last BM: unsure Rectal Pain: reports: none Bruising or Bleeding Gums?: No Review of Systems - Adult - REVIEW OF SYSTEMS - ADULT Constitutional: reports: see HPI, fever. denies: chills Eyes: reports: no symptoms reported Ears, Nose, Mouth & Throat: reports: no symptoms reported Cardiovascular: denies: chest pain, PND Respiratory: reports: see HPI, shortness of breath Gastrointestinal: reports: abdominal pain (generalized cramping), diarrhea, nausea, vomiting Genitourinary: reports: no symptoms reported Musculoskeletal: reports: joint pain (right hip) Integumentary: reports: no symptoms reported Neurological: reports: no symptoms reported Psychiatric: reports: no symptoms reported Endocrine: reports: no symptoms reported Hematologic/Lymphatic: reports: no symptoms reported Allergic/Immunologic: reports: no symptoms reported All Other Systems: Reviewed and Negative Past History - Adult - PAST MEDICAL HISTORY-ADULT Review of Records: reports: Old Records Reviewed, Nursing Assessment Review, M edications Reviewed Major Childhood Illnesses: reports: denies history Cardiovascular: reports: HTN Respiratory: reports: denies history Gastrointestinal: reports: denies history Obstetrical/Gynecological: reports: ovarian cysts Genitourinary: reports: kidney disease Musculoskeletal: reports: denies history, other (herniated disk) Neurological: reports: denies history Psychiatric: reports: depression Endocrine/Immune: reports: denies history Other Conditions: reports: denies history - PRIOR SURGERIES/PROCEDURES Surgical/Procedure History: reports: hysterectomy, BTL, , other (cyst removed) - IMMUNIZATION STATUS Childhood Immunizations: See Nurse Assessment Flu Vaccine: See Nurse Assessment - FAMILY HISTORY Family History: reviewed, not pertinent - SOCIAL HISTORY Smoking: quit less than 1 year Substance Use: alcohol, other (iv drugs) Physical Exam-General - PHYSICAL EXAM-ADULT Initial Vital Signs Reviewed: Yes (Temp 97.3; HR 123) - CONSTITUTIONAL General Appearance: alert, moderate distress, obese. negative: lethargic, slow to respond - EYES Eyes: PERRL/EOMI, pink conjunctivae - HEAD, EARS, NOSE, MOUTH & THROAT HENMT: normocephalic/atraumatic, moist mucous membranes - NECK Neck: full range of motion, supple, normal inspection - RESPIRATORY Respiratory: chest non-tender, lungs clear, normal breath sounds, no respiratory distress, no accessory muscle use - CARDIOVASCULAR Cardiovascular: normal peripheral pulses, no edema, no gallop, no murmur, tachycardia - GASTROINTESTINAL (ABDOMEN) Abdominal Exam: normal bowel sounds, soft, tenderness (difuse). negative: distended, guarding, rigid, rebound - MUSCULOSKELETAL Back Exam: no vertebral tenderness, ecchymosis (right side of lower back) Extremity: normal range of motion, pelvis stable, tenderness (right hip- posterior aspect) - SKIN Integumentary: cyanosis (hands and feet, cap refill 3 seconds), ecchymosis (large amount, right posterior hip region, right buttocks, right lower back, no subcutaneous emphysema on exam). negative: diaphoresis, jaundice, mottled - NEUROLOGIC Neurologic: grossly normal. negative: motor weakness - PSYCHIATRIC Psych/Mental Status: normal mood/affect, normal thought content, normal thought process, oriented x 3, anxious, tearful Progress - PLAN OF CARE/RESULTS Progress/Plan/Lab Results: Vital Signs - 8 hr 10/11/19 15:39 Temperature 97.3 F L Pulse Rate 123 H Respiratory Rate 20 Blood Pressure 101/81 O2 Sat by Pulse Oximetry 100 Laboratory Results - last 24 hr 10/11/19 16:18 PT 14.6 INR 1.08 PTT (Actin FS) 33.7 Orders Category Date Time Status Cardiac Monitoring NOW Care 10/11/19 15:58 Active IV Insertion NOW Care 10/11/19 15:58 Completed NEWS Score 2-4:Order NEWS Lactate Series NOW Care 10/11/19 15:53 Active NEWS Score >or=5:Order NEWS Bundle S.O. NOW Care 10/11/19 16:21 Active Notify Provider of NEWS Score NOW Care 10/11/19 15:58 Active CHEST-1 VIEW [RAD] Stat Exams 10/11/19 15:[address] ABD/PELVIS W/IV CONT ONLY [CT] Stat Exams 10/11/19 15:59 Ordered XRAY PELVIS W/HIP 2-3VW RT [RAD] Stat Exams 10/11/19 15:59 Ordered BLOOD CULTURE [BLDCUL] Stat Lab 10/11/19 16:10 Ordered CBC WITH DIFF [HEME] Stat Lab 10/11/19 16:18 Results CK PROFILE [SP CHEM] Stat Lab 10/11/19 16:18 Received COMPREHENSIVE METABOLIC PANEL [CHEM] Stat Lab 10/11/19 16:18 Received LACTATE, PLASMA [CHEM] Lab 10/11/19 19:00 Uncollected LACTATE, PLASMA [CHEM] Lab 10/11/19 22:00 Uncollected LACTATE, PLASMA [CHEM] Q3H Lab 10/11/19 16:18 Received PROTIME WITH INR [COAG] Stat Lab 10/11/19 16:18 Completed PTT [COAG] Stat Lab 10/11/19 16:18 Completed TROPONIN T HIGH SENSITIVITY Stat Lab 10/11/19 16:18 Received URINALYSIS W/POSS RFLX CULT [URINALYSIS] Stat Lab 10/11/19 15:58 Uncollected 0.9% Sodium Chloride Inj [Ns] 1,000 ml Med 10/11/19 15:59 Active IV 999 mls/hr Hydromorphone [Dilaudid] Med 10/11/19 15:59 Discontinued 0.5 mg IV NOW ONE Ondansetron [Zofran] Med 10/11/19 15:59 Discontinued 4 mg IV NOW ONE O2 Per Protocol Stat Oth 10/11/19 15:58 Active EKG [EKG] Stat Ther 10/11/19 16:54 Ordered Result Diagrams: 10/11/19 16:18 10/11/19 16:18 - REASSESSMENT Reassessment #1 Time Reassessed: 19:42 Status: other (Pt in agreement with plan to admit. Dr. Fonseca spoke with [facility] at who accepted admission.) - EKG 1 Time of EKG reading by physician:: 18:17 EKG Read and Signed by:: Quinten Patrick EKG Interpretation (*Must complete 3 of following elements*): Normal Rate: 116 Rhythm: Sinus tachycardia [place]: normal QRS: normal [place] Interval: normal ST Wave: normal - XRAY 1 XRAY Study: Chest Impression: See EMR Report ([facility] - [address], [address], [place] [address] [facility] - [address] [place] [address] Department of Imaging Patient: MEAGHAN PABLOADM Date: 10/11/19MR#: [id number] : 1970ADM Status: REG ERAcct#: [id number] Age/Sex: 49/FRoom/Bed: Loc: P.ED Ordering Physician: Serafin Shea Family Physician: Jose Villatoro MD Reason for Procedure: fever Signed CHEST-1 VIEW - 10/11/2019 INDICATION: fever COMPARISON: 01/06/2019 FINDINGS: The lungs are normally expanded and clear. Heart size and mediastinal contours are normal. No pneumothorax or pleural effusion. IMPRESSION: Negative exam. Electronically signed by Sachin Ta 10/11/2019 6:22 PM 10/11/191821 Interpreting Physician: Sachin Ta MD Dictated Date/Time: 10/11/191821 cc: Serafin Shea; Jose Villatoro MD) - CT/MRI 1 CT Study: Abdomen, Pelvis ([facility] - [address] [facility] [address] [place] [address] [place] [address] [place] [address] Department of Imaging Patient: MEAGHAN PABLOADM Date: 10/11/19MR#: [id number] : 1970ADM Status: REG ERAcct#: [id number] Age/Sex: 49/FRoom/Bed: Loc: P.ED Ordering Physician: Serafin Shea Family Physician: Jose Villatoro MD Reason for Proce dure: n/v/d, leukocytosis, gen abd pain, fever Signed CT ABDOMEN/PELVIS W/O CONTRAST - 10/11/2019 INDICATION: n/v/d, leukocytosis, gen abd pain, fever COMPARISON: None FINDINGS: The lung bases are clear and the heart size is normal. There is severe diffuse fatty change of the liver. The stomach is very distended primarily with fluid. No bowel obstruction otherwise. No radiodense renal stones. No hydronephrosis or hydroureter. Other abdominal organs are normal. There is severe skin thickening and extensive indistinct subcutaneous edema along the right flank, buttock, and upper thigh. No soft tissue gas, foreign body, or drainable fluid collections. Uterus is absent. Urinary bladder and rectum are normal. There are moderate degenerative changes of the spine. No acute or suspicious bony lesion. IMPRESSION: 1. Extensive right flank, buttock, and upper thigh edema compatible with cellulitis. 2. Severe fatty liver. 3. Moderate fluid distention of the stomach. This may reflect gastroparesis. This exam was performed using automated exposure control, adjustment of mA or kV according to patient size, and/or use of iterative reconstruction technique Electronically signed by Sachin Ta 10/11/2019 6:44 PM 10/11/19 1844 Interpreting Physician: Sachin Ta MD Dictated Date/Time: 10/11/19 1834 cc: Serafin Shea; Jose Villatoro MD) - CONSULTS/PCP/HOSPITALIST Notification #1 *Consult/PCP/Hospitalist*: Dr. Fonseca Time Discussed: 18:33 Reason/Comments: admission- n/v/d, abd pain, sepsis Consult Disposition: Will see in ED, Admit (to Dr. Raymundo LESLIE to enter admit orders.) Departure - Departure Date of Disposition Decision: 10/11/19 Time of Disposition Decision: 18:30 DIAGNOSIS: Fatty liver Sepsis Qualifiers: Sepsis type: sepsis due to unspecified organism Sepsis acute organ dysfunction status: unspecified Qualified Code(s): A41.9 - Sepsis, unspecified organism Abdominal pain Qualifiers: Abdominal location: generalized Qualified Code(s): R10.84 - Generalized abdominal pain Cellulitis Qualifiers: Site of cellulitis: unspecified site Qualified Code(s): L03.90 - Cellulitis, unspecified Nausea and vomiting Qualifiers: Vomiting type: unspecified Vomiting Intractability: unspecified Qualified Code(s): R11.2 - Nausea with vomiting, unspecified Fall Qualifiers: Encounter type: initial encounter Qualified Code(s): W19.XXXA - Unspecified fall, initial encounter Contusion, hip Qualifiers: Encounter type: initial encounter Laterality: right Qualified Code(s): S70.01XA - Contusion of right hip, initial encounter Disposition: ADMITTED INPATIENT 09 Certified Medical Emergency: Emergent Condition: Serious Referrals and Follow-Ups: Jose Villatoro MD [Primary Care Provider] - - Critical Care Note This patient required my direct & personal management of CC.: No Attestation - Physician/ NASRA Attestation Patient care was provided by Advanced Practice Provider:: Yes Advanced Practice Provider documentation review:: The Mid-level provider documentation, treatment plan and medical decision making was reviewed by the physician who agrees with all treatment and medical decision making by the MLP. The physician spent face to face time with patient:: No Advanced Practice Provider documentation review:: Supervising physician onsite and consulted in the evaluation and care of this patient. The physician did not have a face to face encounter with the patient. This chart was documented by the indicated scribe, (Nina Lynn, Katie) and accurately reflects the services I performed and decisions made by me, Serafin Shea CRNP, as attested by the provider's signature.
[2019-10-11] MEDS: VANCOMYCIN 1 GM/NS 1 GM/250 ML IVPB IV SCH ×2 (20:34→23:52)
--- NOTE | 2019-10-11 22:59 | HISTORY AND PHYSICAL ---
CHIEF COMPLAINT: Nausea and vomiting. HISTORY OF PRESENT ILLNESS: The patient is a 49-year-old female who presented to emergency department with nausea, vomiting, abdominal pain, generalized weakness, cramping for about 3 days. She states she has had a fever of 102. She notes earlier today she got up and went to the restroom, fell, hit the right side of her hip and has had a huge bruise there since. Notes that the knot has been present since before the fall but has worsened since the fall. REVIEW OF SYSTEMS: Notes she has generalized abdominal cramping pain, right hip pain, throbbing as well. States she has had fever for greater than 24 hours. She has had 3 days of nausea and vomiting. Denies any hematemesis, hematochezia, melena. Has felt short of breath at times. Denies any headaches, blurred vision, change in vision, denies any focalized weakness. Denies dysuria, frequency, urgency, hesitancy, polyuria or polydipsia. ALLERGIES: Morphine. MEDICATIONS: Do not have an active medication list currently. We will adjust when one is made available. PAST MEDICAL HISTORY: Hypertension, history of herniated disk, chronic depression. She has had a hysterectomy, BTL and section. FAMILY HISTORY: Noncontributory. SOCIAL HISTORY: Does have a history of alcohol as well as IV meth, but notes she has not used in a while. Has a long history of smoking but has not smoked recently. PHYSICAL EXAMINATION: VITAL SIGNS: T-max currently 97 degrees, pulse 123, respiratory rate 20, BP 101/80, saturation 100% on room air. GENERAL: Patient is an awake, somewhat ill-appearing individual who is in no current respiratory distress. HEENT: Normocephalic. NECK: Supple. CARDIOVASCULAR: Tachycardia. No appreciable murmurs. CHEST: Decreased, positive rhonchi throughout. No crackles. No wheezing. ABDOMEN: Soft, obese, diffusely minimally tender. EXTREMITIES: Does note she moves all extremities well. She has a large indurated area on her right hip that is tender and bruised. NEUROLOGIC: She is awake, alert, oriented. She has no focal changes. LABORATORY DATA: WBC 52, H and H 19 and 53, platelets 709,000. Sodium 127, creatinine 3.8. ASSESSMENT: 1. Acute renal failure of undetermined origin, likely secondary to volume depletion with elevated BUN and creatinine within normal. Creatinine is at baseline. 2. Hyponatremia. 3. Leukocytosis. 4. Hemoconcentration with elevated hemoglobin and hematocrit and platelets. 5. Volume depletion. 6. Supraventricular tachycardia. 7. Hypertension. PLAN: We are going to admit patient to the hospital, place her on antibiotics, follow her white count, follow her hyponatremia. She does have a metabolic acidosis. Expect her creatinine is due to volume depletion. Hopefully, this will improve with rehydration. We will transfer her to [facility], and we will follow. Recheck labs in the a.m. CT abdomen currently pending. cc: Chino Fonseca MD
[2019-10-11] MEDS ORDERED: VANCOMYCIN 1 GM/NS 1 GM/250 ML IVPB IV SCH (23:00)
[2019-10-12] MEDS: ZOSYN 3.375 GM in NS 50 ML IV SCH ×2 (00:31→06:04)
[2019-10-12 01:18] LABS: URINE SOURCE CLEAN CATCH
[2019-10-12 01:34] LABS: BILIRUBIN URINE NEGATIVE (NEGATIVE); BLOOD URINE SMALL (NEGATIVE); COLOR YELLOW; GLUCOSE URINE NEGATIVE (NEGATIVE); KETONE URINE NEGATIVE (NEGATIVE); LEUKOCYTES URINE MODERATE (NEGATIVE); NITRITE URINE NEGATIVE (NEGATIVE); PROTEIN URINE 70 mg/dL (NEGATIVE); SP GRAVITY URINE 1.027; TURBIDITY URINE HAZY (CLEAR); UROBILINOGEN URINE NORMAL (NORMAL)
[2019-10-12 01:45] LABS: UR EPITHELIAL CELLS >10 /HPF (<10); URINE BACTERIA 1+ /HPF; URINE CASTS NONE SEEN; URINE CRYSTALS NONE SEEN; URINE RBC <10 /HPF (<10); URINE SMALL ROUND CELLS NONE SEEN; URINE WBC TNTC /HPF (<10); URINE YEAST PRESENT
[2019-10-12] MEDS: DILAUDID IV PRN ×6 (02:04→23:36)
[2019-10-12 02:28] LABS: UR AMPHETAMINES QUAL PRESUMPTIVE POSITIVE (NONE DETECT); UR BARBITUATES QUAL NONE DETECTED (NONE DETECT); UR BENZODIAZEPIN QUAL NONE DETECTED (NONE DETECT); UR CANNABINOIDS QUAL NONE DETECTED (NONE DETECT); UR COCAINE QUAL NONE DETECTED (NONE DETECT); UR METHADONE QUAL NONE DETECTED (NONE DETECT); UR OPIATES QUAL NONE DETECTED (NONE DETECT); UR OXYCODONE QUAL NONE DETECTED (NONE DETECT); UR PCP QUAL NONE DETECTED (NONE DETECT)
[2019-10-12] MEDS: ZOFRAN IV PRN ×2 (05:37→18:12)
[2019-10-12] MEDS ORDERED: DESYREL PO PRN (10:13)
[2019-10-12] MEDS ORDERED: CUBICIN 500 MG in NS 100 ML IV SCH (10:15)
[2019-10-12] MEDS ORDERED: VITAMIN D PO SCH (10:15)
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
--- NOTE | 2019-10-12 12:21 | Diag Imaging Result Doc PS360 ---
KUB ABDOMEN - 10/12/2019 INDICATION: SBO COMPARISON: CT from yesterday FINDINGS: There is no change from prior. IMPRESSION: No change from prior. Electronically signed by Sachin Ta 10/12/2019 12:19 PM
[2019-10-12] MEDS: ZOSYN 2.25 GM in NS 50 ML IV SCH ×3 (12:57→21:40)
[2019-10-12] MEDS: LR 1,000 ML IV SCH ×3 (12:57→19:32)
[2019-10-12] MEDS: LYRICA PO SCH ×2 (13:31→21:23)
[2019-10-12] MEDS: LEVOPHED 8 MG in D5 1/2 NS 250 ML IV SCH (17:38)
[2019-10-12 18:03] LABS: URINE SOURCE CATH
[2019-10-12 18:09] LABS: BILIRUBIN URINE NEGATIVE (NEGATIVE); BLOOD URINE SMALL (NEGATIVE); COLOR YELLOW; GLUCOSE URINE NEGATIVE (NEGATIVE); KETONE URINE TRACE mg/dL (NEGATIVE); LEUKOCYTES URINE TRACE (NEGATIVE); NITRITE URINE NEGATIVE (NEGATIVE); PROTEIN URINE 70 mg/dL (NEGATIVE); SP GRAVITY URINE 1.024; TURBIDITY URINE HAZY (CLEAR); UROBILINOGEN URINE NORMAL (NORMAL)
[2019-10-12 18:15] LABS: UR EPITHELIAL CELLS <10 /HPF (<10); URINE BACTERIA NEGATIVE /HPF; URINE RBC <10 /HPF (<10)
[2019-10-12] MEDS ORDERED: EPINEPHRINE 4 MG in NS 250 ML IV SCH (18:15)
[2019-10-12 18:32] LABS: EOS# 0.02 X1000 (0.0-0.7); HEMATOCRIT 46.7 % (37.0-47.0); HEMOGLOBIN 16.8 g/dL (12.0-16.0); LYMPH# 3.71 X1000 (1.2-3.4); LYMPH% 7.9 % (20.5-51.1); MCH 28.6 PG (27-31); MCV 79.6 FL (81-99); MONO# 5.76 X1000 (0.11-0.59); MONO% 12.3 % (1.7-9.3); MPV 12.2 FL (7.4-10.4); PLT 416 X1000 (130-400); RBC 5.87 XMIL (4.2-5.4)
[2019-10-12 18:44] LABS: ALB/GLOB RATIO 0.4; ALBUMIN 1.1 g/dL (3.5-5.0); CALCIUM 7.4 mg/dL (8.8-10.2); CREATININE 3.7 mg/dL (0.5-0.9); MAGNESIUM 1.8 mg/dL (1.5-2.7); POTASSIUM 4.4 mmol/L (3.5-5.1); TOTAL BILIRUBIN 1.03 mg/dL (0.20-1.00); TOTAL PROTEIN 3.6 g/dL (6.3-8.3)
[2019-10-12 18:45] LABS: URINE CASTS NONE SEEN; URINE CRYSTALS NONE SEEN; URINE SMALL ROUND CELLS TRANS PRESENT; URINE YEAST NONE SEEN
[2019-10-12 18:52] LABS: BANDS 8 % (0-1); LYMPHS 6 % (21-51); MONO 10 % (1-9); SEGS 74 % (42-75)
[2019-10-12 18:54] LABS: LARGE PLATELETS OCCASIONAL
[2019-10-12 18:55] LABS: BURR CELLS OCCASIONAL
[2019-10-12 19:16] LABS: ALLEN TEST YES; BE -20.5 mmoll (-3.0-3.0); BLOOD TYPE ARTERIAL; O2(CT) 19.1 mL/dL (15.0-23.0); SAMPLE BLOOD; THB 19.1 g/dL (11.5-17.4)
[2019-10-12 19:20] LABS: HCO3-(ACT) 7.9 mmoll (20.0-26.0); PCO2(98.6) 19 mmHg (35-45); PO2(98.6) 38 mmHg (60-100); pH(98.6) 7.13 (7.35-7.45)
[2019-10-12 19:21] LABS: O2HB 71.4 % (95.0-99.0); SAO2 72.7 % (95.0-100.0)
[2019-10-12 19:22] LABS: MODALITY VENTIMASK
--- NOTE | 2019-10-12 20:01 | EKG Report ---
Test Performed on : 10/12/2019 6:08:38 PM Test Reason : cp Blood Pressure : / mmHG Vent. Rate : 070 BPM Atrial Rate : 070 BPM P-R Int : 112 ms QRS Dur : 080 ms QT Int : 368 ms P-R-T Axes : 022 042 018 degrees QTc Int : 397 ms Critical Test Result: STEMI Age and gender specific ECG analysis Normal sinus rhythm. Low voltage QRS Anteroseptal infarct , possibly acute Lateral injury pattern ACUTE NC / STEMI Abnormal ECG When compared with ECG of 11-OCT-2019 18:12, (Unconfirmed) Vent. rate has decreased BY 46 BPM Anteroseptal infarct is now present ST elevation now present in Lateral leads Confirmed by Rajeev CHILDERS, Flavio Singleton ([id number]) on 10/15/2019 9:39:35 AM
--- NOTE | 2019-10-12 20:01 | EKG Report ---
Test Performed on : 10/12/2019 6:40:57 PM Test Reason : CP Blood Pressure : / mmHG Vent. Rate : 089 BPM Atrial Rate : 089 BPM P-R Int : 136 ms QRS Dur : 084 ms QT Int : 390 ms P-R-T Axes : 044 075 024 degrees QTc Int : 474 ms Normal sinus rhythm. Low voltage QRS Septal infarct (cited on or before 12-OCT-2019) Abnormal ECG When compared with ECG of 12-OCT-2019 18:08, (Unconfirmed) QT has lengthened Confirmed by Rajeev CHILDERS, Flavio Singleton ([id number]) on 10/15/2019 9:39:39 AM
[2019-10-12] MEDS: KLONOPIN PO SCH (20:05)
[2019-10-12] MEDS ORDERED: EPINEPHRINE SYRINGE IV ONE (20:23)
--- NOTE | 2019-10-12 20:40 | OPERATIVE NOTE ---
PROCEDURE DATE: 10/12/2019 PROCEDURE: Right femoral central line placement. INDICATION: Hypotension, suspicious septic shock with extremely poor peripheral venous access. SURGEON: Dr. Escalante. NURSE PRESENT: Ms. Rapp. Briefly Ms. Horn is a 49-year-old female who is admitted because of skin and soft tissue infection, I understand she got Dilaudid for pain, a couple minutes later she became remarkably hypotensive, she was given 2 boluses of IV fluids, she still remained hypotensive when I went to evaluate her she was mottled, blood pressures were in the 60s over 35. She was completely altered, not mentating well, hyperperfusion and she had a very poor IV access presumably due to previous IV drug use. I decided to put a central line for therapeutic purposes. Ms Horn was explained to, she did consent to the procedure however this was emergency. I was not really sure how much she was understanding. PROCEDURE NOTE: The right femoral vein was palpated. The area was draped and sterilize on the regular fashion. Subsequently local lidocaine 1% was used as the local anesthesia. After that the femoral artery was palpated again and isolated, the central line trochar was advanced under negative pressure and until venous blood return was obtained. The central line guidewire was threaded and the line was subsequently inserted using Seldinger technique. Subsequently the line was secured, blood return was obtained in 2 of the ports, 1 did not have a blood return but was infusing well. The other side the line was secured and the patient was transferred to the ICU. Ms Horn tolerated the procedure without any complication. There was a very minimal blood loss. Time spent for the procedure was 15 minutes. cc: Rudy Escalante MD [facility]
[2019-10-12] MEDS ORDERED: CYMBALTA PO SCH (21:00)
[2019-10-12] MEDS ORDERED: D50W SYRINGE IV ONE ×2 (21:20→22:05)
[2019-10-13] MEDS: KLONOPIN PO SCH (00:05)
[2019-10-13] MEDS: LEVOPHED 8 MG in D5 1/2 NS 250 ML IV SCH ×4 (00:09→12:44)
[2019-10-13] MEDS ORDERED: D50W SYRINGE IV ONE (00:59)
[2019-10-13] MEDS ORDERED: NS 1,000 ML IV ONE (01:47)
[2019-10-13] MEDS ORDERED: NS 1,000 ML ONE (01:51)
[2019-10-13 02:17] LABS: ALLEN TEST YES; BLOOD TYPE ARTERIAL; METHB 0.4 % (0.0-1.5); PCO2(98.6) 32 mmHg (35-45); PO2(98.6) 50 mmHg (60-100); SAMPLE BLOOD; THB 16.2 g/dL (11.5-17.4)
[2019-10-13 02:21] LABS: SAO2 67.2 % (95.0-100.0); pH(98.6) < 6.80 (7.35-7.45)
[2019-10-13 02:22] LABS: MODALITY VENTIMASK; O2HB 65.8 % (95.0-99.0)
[2019-10-13] MEDS: NEO-SYNEPHRINE 50 MG in NS 250 ML IV SCH ×4 (02:30→15:23)
[2019-10-13] MEDS ORDERED: SODIUM BICARBONATE 8.4% 150 MEQ in D5W 1,000 ML IV SCH (02:45)
[2019-10-13] MEDS ORDERED: ZYVOX 600 MG/D5W 600 MG/300 ML IVPB IV SCH (02:45)
[2019-10-13] MEDS: SODIUM BICARBONATE 8.4% 150 MEQ in D5W 1,000 ML IV SCH ×2 (03:20→13:06)
[2019-10-13] MEDS ORDERED: HALDOL IV ONE ×3 (03:27→08:00)
[2019-10-13] MEDS ORDERED: HALDOL ONE (03:29)
[2019-10-13] MEDS ORDERED: TYLENOL PR PRN (03:30)
[2019-10-13] MEDS ORDERED: SODIUM CHLORIDE 0.9% INJ SCH (03:45)
[2019-10-13] MEDS ORDERED: LR 1,000 ML IV SCH (03:45)
[2019-10-13 03:48] LABS: EOS# 0.17 X1000 (0.0-0.7); EOS% 0.3 % (0.0-10.0); HEMATOCRIT 44.8 % (37.0-47.0); LYMPH# 7.84 X1000 (1.2-3.4); LYMPH% 12.6 % (20.5-51.1); MCH 28.8 PG (27-31); MCHC 35.7 g/dL (33-37); MCV 80.6 FL (81-99); MONO# 6.33 X1000 (0.11-0.59); MONO% 10.2 % (1.7-9.3); MPV 12.1 FL (7.4-10.4); PLT 432 X1000 (130-400); RBC 5.56 XMIL (4.2-5.4); WBC 62.26 X1000 (4.8-10.8)
[2019-10-13 03:56] LABS: INR 2.47; PROTIME 27.5 Seconds (11.0-16.0); PTT 58.6 Seconds (22.3-41.8)
[2019-10-13 04:11] LABS: BANDS 8 % (0-1); EOS 2 % (1-10); LYMPHS 12 % (21-51); MONO 8 % (1-9); NRBC 1 % (0-0); SEGS 52 % (42-75)
[2019-10-13 04:18] LABS: ALB/GLOB RATIO 1.2; ALBUMIN 1.4 g/dL (3.5-5.0); PHOSPHORUS 13.4 mg/dL (2.7-4.5); POTASSIUM 5.7 mmol/L (3.5-5.1); TOTAL BILIRUBIN 0.98 mg/dL (0.20-1.00); TOTAL PROTEIN 2.6 g/dL (6.3-8.3)
[2019-10-13 04:19] LABS: CALCIUM 6.7 mg/dL (8.8-10.2)
[2019-10-13 04:37] LABS: CK INDEX 1.1 (0.0-2.5); CK-MB 34.81 ng/mL (0.0-5.0)
[2019-10-13] MEDS: PROTONIX IV SCH ×2 (04:40→15:52)
[2019-10-13] MEDS: ZOSYN 2.25 GM in NS 50 ML IV SCH ×3 (05:00→15:53)
[2019-10-13 05:25] LABS: BE -23.1 mmoll (-2.0-2.0); BLOOD TYPE VENOUS; HCO3-(ACT) 5.5 mmoll (22-27); PCO2(98.6) 40 mmHg (40-60); PO2(98.6) 40 mmHg (30-55); SAMPLE BLOOD; SAO2 56.9 % (40.0-85.0)
[2019-10-13 05:26] LABS: pH(98.6) 6.95 (7.32-7.43)
[2019-10-13] MEDS: D50W SYRINGE IV PRN ×3 (05:40→12:22)
[2019-10-13] MEDS: ZOFRAN IV PRN (05:50)
[2019-10-13] MEDS: HALDOL ONE ×2 (06:58→08:38)
[2019-10-13] MEDS ORDERED: PRILOSEC PO SCH (07:00)
[2019-10-13] MEDS ORDERED: AMIDATE ONE (07:52)
[2019-10-13] MEDS ORDERED: QUELICIN ONE (07:52)
[2019-10-13] MEDS ORDERED: HALDOL IV PRN (08:00)
[2019-10-13] MEDS ORDERED: QUELICIN IV ONE (08:01)
[2019-10-13] MEDS ORDERED: AMIDATE IV ONE (08:01)
[2019-10-13] MEDS ORDERED: DIPRIVAN 1% 1,000 MG/100 ML BOTTLE IV SCH (08:15)
--- NOTE | 2019-10-13 08:44 | Diag Imaging Result Doc PS360 ---
CHEST-PORTABLE - 10/13/2019 INDICATION: Sepsis,SOB COMPARISON: 10/11/2019 FINDINGS: Lung volumes are much lower. No infiltrates. Heart size remains normal. IMPRESSION: Low lung volumes but otherwise no acute disease. Electronically signed by Sachin Ta 10/13/2019 8:41 AM
--- NOTE | 2019-10-13 08:48 | PROGRESS NOTE ---
DATE: 10/13/2019 Ms. Horn is a 49-year-old, female. She was admitted on 10/11/2019 for sepsis secondary to skin and soft tissue infection with extensive right flank, buttock, and upper thigh cellulitis. She has a history of recreational drug abuse. Reportedly stated that she had been injected with methamphetamines. She also has other complications of severe fatty liver disease, high anion gap metabolic acidosis due to lactic acidosis presumably from sepsis, and remote history of streptococcus pneumoniae bacteremia and transaminitis. From what I understand, late in the afternoon, yesterday on October 11, the patient did have a CAT call and was moved from PVC to ICU due to her heart rate dropping. In the nurse's note, they documented that her heart rate dropped into the 30s. She also did have hypotension as well as a blood pressure that was documented manually at 90/60. Reportedly, from the patient's nurse, she was given 3 L normal saline bolus and was placed on a Levophed drip. She did have an epinephrine drip ordered. Though, from what I understand, this did not get started, though was given epinephrine at the time of the CAT call for her bradycardia. The patient does have discoloration to bilateral lower extremities. She does have mottling noted as well and was found to have no pedal pulses bilaterally. I was informed that Dr. Escalante had already been notified about this and that he was aware. I was notified by the patient's nurse that she did have critical blood gases. The patient's medical record states that these are arterial, though all of her blood gases which include the ones that were drawn at 1900 on October 11, 0205 on October 12, and 0518 on October 12 were all venous blood gases. We have asked respiratory to correct these in the patient's medical record to reflect this, though I have confirmed that these were venous gases. The patient does have high anion gap metabolic acidosis. She has also had some complications with hypoglycemia and worsening hypotension. The patient has had some episodes where she has become quite agitated as well. Unfortunately, she did pull her right femoral central line out. I did discuss with Dr. Gaffney, the attending hospitalist for shiftman. I did notify him of her venous blood gas results, her current condition including her hypoglycemia, metabolic acidosis, and her hypotension, as well as that she had pulled her right femoral central line out. Dr. Silva, the ER physician, did come to the patient's bedside. He did place a left femoral central line. We did give her a 1 L normal saline bolus. We also added on additional pressor of Jared-Synephrine. We did add on a D5 sodium bicarbonate drip to help with her hypoglycemia and her acidosis as well. We did drawl stat labs of CBC, CMP, magnesium, phosphorus, lactate, ammonia, troponin, and CK. The patient does have worsening renal function at this time. She also was noted to have a troponin of 717. We did repeat a stat EKG. Dr. Gaffney, hospitalist physician, did review this as well. Did not appear to be acute ST changes noted. This may be secondary to her renal disease and sepsis. Also, during the time we were at bedside replacing her central line, she did have an episode of vomiting where she vomited up blood. Given this, we have placed the patient NPO. We did order Protonix 40 mg IV q.12 hours. We have held all anticoagulants. Given her elevated cardiac enzymes, we have ordered a cardiology consult. We also have ordered a consult with nephrology with Dr. Gleason for acute kidney injury and we did order a consult with Dr. Keen with gastroenterology given suspected upper gastrointestinal bleeding. Dr. Gaffney did request to add on additional antibiotic of Zyvox in addition to her daptomycin and Zosyn that she is receiving for her cellulitis. Dr. Escalante, the patient's attending physician, has been updated and notified of the patient's events and her deterioration in her condition overnight. Further orders and recommendations pending hospital course, diagnostic studies, and physician evaluation. Critical care time with this patient was 60 minutes. Dictated by TYLER Mason for Justin Gaffney MD
[2019-10-13] MEDS ORDERED: CLINDAMYCIN 900 MG/D5W 900 MG/50 ML IVPB IV SCH ×2 (09:30→10:00)
--- NOTE | 2019-10-13 09:35 | Diag Imaging Result Doc PS360 ---
CHEST-PORTABLE - 10/13/2019 8:19 AM INDICATION: ETT and NG placement COMPARISON: 10/13/2019 5:53 AM FINDINGS: There is an endotracheal tube in good position at T4. There is a nasogastric tube in good position in the stomach. IMPRESSION: Good support tube placement. Electronically signed by Sachin Ta 10/13/2019 9:32 AM
[2019-10-13 09:41] LABS: ALLEN TEST NO; BE -25.8 mmoll (-3.0-3.0); BLOOD TYPE ARTERIAL; HCO3-(ACT) 4.8 mmoll (20.0-26.0); METHB 0.5 % (0.0-1.5); O2(CT) 22.9 mL/dL (15.0-23.0); O2HB 98.5 % (95.0-99.0); PCO2(98.6) 24 mmHg (35-45); PO2(98.6) 195 mmHg (60-100); SAMPLE BLOOD; SAO2 99.8 % (95.0-100.0); SRATE 15 BPM; THB 16.3 g/dL (11.5-17.4); TVOL 550 mL
[2019-10-13 09:46] LABS: MODALITY VENTILATOR; pH(98.6) 6.95 (7.35-7.45)
--- NOTE | 2019-10-13 09:56 | PROGRESS NOTE ---
DATE: 10/13/2019 SUBJECTIVE: I have seen and examined Ms. Horn today. Ms. Horn has been quite unstable throughout the night, hypotension, altered mental status. At one point I was told that she pulled out her right femoral catheter and the emergency physician had to come in and put another line on the left side. Early on this morning, I was called that she became very hypotensive and hypoxemic, saturating about 84%, even on a Venturi mask. She is transitioned to non- rebreather. We consulted anesthesia STAT for intubation. At the time I came, anesthesia was in the process of intubating, Ms. Horn was sedated. OBJECTIVE: Vital signs: Current vitals are blood pressure 93/44, pulse of 90, respirations 23, temperature 96.1 degrees. Patient is saturating 96%. General: Ms. Horn is a 49-year-old morbidly obese, female. BMI of 36.6. She is in bed. She is currently now intubated and sedated on propofol. HEENT: Mucosa is pink. Skin: The extremities are dusky with reduced capillary refill. Chest: There is good air entry bilaterally. Few crackles posteriorly. Cardiovascular: Regular rate and rhythm. No murmurs, no rubs, no gallops. GI: Abdomen is soft, distended, but nontender. No hepatosplenomegaly. Extremities: No pedal edema. There is duskiness in the lower extremity as well. On the right side of the patient's hip and buttock, there is extensive swelling. There does seem to be any remarkable redness of the overlying skin. REFERENCE ASSISTANT: Patient is currently sedated and intubated. LABORATORY DATA: WBC is up to 62.26, hemoglobin is 16.0, platelet count of 432,000. Chemistry shows sodium of 126, bicarb of 5.7, chloride of 90, bicarb of 12, gap of 24, BUN is up to 56. AST and ALT are remarkably elevated. Troponin also went up to 717. Lactate is 8.1. IMAGING STUDIES: A KUB which was done yesterday did not show any changes. A chest x-ray this morning showed low lung volumes, otherwise no infiltrate. NG tube has also been put in place. LINES AND TUBES: Patient currently has a left femoral central line catheter. ET tube is in place. NG tube is in place. Ybarra catheter is also in place. INTAKE AND OUTPUT: Urine output has been 150 over the course of the night. The patient is currently positive balance of 6048. MEDICATIONS: Have all been reviewed. Zyvox was added yesterday on top of daptomycin and Zosyn. I am going to go ahead and discontinue the Zyvox and add clindamycin just because of the possibility of this severe cellulitis. If it has any toxin producing MRSA and if there is any possibility of necrotizing fascitis. Unfortunately, the CT scan that was done yesterday was done without contrast, so it is going to be extremely hard to know if there is any necrotizing fasciitis. Current medications have all been reviewed. ASSESSMENT: 1. Septic shock presumably due to skin and soft tissue infection. 2. Extensive right flank, buttocks and upper thigh cellulitis. Unsure if the patient has necrotizing fasciitis. She is currently on Zosyn with daptomycin. Zyvox was added yesterday. However, because of the metabolic acidosis and the fact that we suspect a possibility of underlying necrotizing fasciitis, we are going to add clindamycin instead and discontinue the Zyvox. I have also DC Daptomycin due to elevation in her CK level. 3. Acute shock liver on background of severe fatty liver disease. 4. Acute kidney injury, presumably acute tubular necrosis. We are going to continue monitoring. Avoid any nephrotoxin. All medications have been renally dosed, we have consulted Nephrology. 5. High anion gap metabolic acidosis due to severe lactic acidosis. 6. Altered mental status, most likely due to sepsis induced encephalopathy. 7. Troponin elevation with EKG showing some concern of mild ST-segment elevations in the lateral leads. We are going to repeat the EKG this morning. Echocardiogram has also been ordered, and we will get Cardiology to evaluate Ms. Horn. We will presume this is probably all related to the ongoing sepsis and possible sepsis induced stress cardiomyopathy. We will follow up with the recommendations from Cardiology. 8. Coffee-grounds emesis. The patient's GI secretion looked coffee-ground. Hemoglobin, however, seems to be fairly stable. She is currently on PPI. GI has been consulted. 9. Acute hypoxemic respiratory failure. Patient is currently intubated. Pulmonary Medicine is consulted. PLAN: In general, I think Ms. Horn is critically sick. We think she is in septic shock as a result of the extensive cellulitis on her right buttocks and flank, which is thought to have been induced from recreational drug use from amphetamine shots, she became very decompensated last night until this morning and she has unfortunately gone on mechanical ventilation. She is on 2 different types of pressors at this point. Antibiotics have been titrated. Cultures are still pending, and multiple subspecialties have been consulted. We will continue to monitor her in the Critical Care Unit and follow up with further recommendations from the subspecialties. Critical time spent is 1 hour. cc: Rudy Escalante MD [facility]
[2019-10-13] MEDS ORDERED: PITRESSIN 40 UNIT in NS 100 ML IV SCH (10:00)
[2019-10-13] MEDS ORDERED: SODIUM BICARBONATE 8.4% IV PUSH ONE (10:01)
--- NOTE | 2019-10-13 10:02 | EKG Report ---
Test Performed on : 10/13/2019 09:43:35 AM Test Reason : chest pain Blood Pressure : / mmHG Vent. Rate : 101 BPM Atrial Rate : 101 BPM P-R Int : 184 ms QRS Dur : 082 ms QT Int : 342 ms P-R-T Axes : 039 105 121 degrees QTc Int : 443 ms Sinus tachycardia. Rightward axis Low voltage QRS Cannot rule out Anteroseptal infarct (cited on or before 12-OCT-2019) Abnormal ECG When compared with ECG of 13-OCT-2019 04:12, (Unconfirmed) Serial changes of Anteroseptal infarct present Confirmed by Rajeev CHILDERS, Flavio Singleton ([id number]) on 10/15/2019 9:40:17 AM
[2019-10-13 10:07] LABS: CK PROFILE > 20000 U/L (24-173)
--- NOTE | 2019-10-13 10:07 | EKG Report ---
Test Performed on : 10/13/2019 04:12:09 AM Test Reason : elevated trop Blood Pressure : / mmHG Vent. Rate : 105 BPM Atrial Rate : 105 BPM P-R Int : 144 ms QRS Dur : 080 ms QT Int : 322 ms P-R-T Axes : 050 067 057 degrees QTc Int : 425 ms Sinus tachycardia. Low voltage QRS Septal infarct , age undetermined Abnormal ECG When compared with ECG of 13-OCT-2019 00:46, (Unconfirmed) Vent. rate has increased BY 39 BPM Criteria for Lateral infarct are no longer present Nonspecific T wave abnormality, worse in Inferior leads Nonspecific T wave abnormality now evident in Anterior leads QT has lengthened Confirmed by Rajeev CHILDERS, Flavio Singleton ([id number]) on 10/15/2019 9:39:50 AM
[2019-10-13] MEDS ORDERED: SOLU-CORTEF IV SCH (10:15)
--- NOTE | 2019-10-13 12:36 | CARDIOLOGY CONSULTATION ---
DATE: 10/13/2019 CHIEF COMPLAINT ON PRESENTATION: Nausea and vomiting. HISTORY OF PRESENT ILLNESS: Ms. Horn is a 49-year-old, white female with a history of hypertension and polysubstance abuse. She presented on the with the above complaints, a fever of 102. She had a fall with impact to the right hip with a large bruise in that area. Since that time, she has been feeling very poorly. She was being treated for sepsis, likely due to a soft tissue infection. Apparently, yesterday, she had decompensation resulting in intubation, placed on pressors. She is currently on 3 pressors, 2 of them being maximized out and 1 of them continuing to be titrated. She is on the ventilator. Not responsive to physical or verbal stimuli. PAST MEDICAL HISTORY: Significant for: 1. History of hypertension. 2. Depression. SOCIAL HISTORY: Apparent history of polysubstance abuse. Reportedly had told people that she had quit using IV drugs but people were still shooting her up when she went to sleep. Positive tobacco use. FAMILY HISTORY: Unable to be obtained secondary to the patient's current intubated status. REVIEW OF SYSTEMS: Unable to be obtained secondary to the patient's current intubated status. PHYSICAL EXAMINATION: She is somewhat hypothermic presently at 96.1. Reported history of temperature of 102 degrees on presentation but I do not have that documented. Heart rates 90s to 110s. Blood pressure 93/44. General: No acute distress. Again, she is on the ventilator. Not responsive to physical or verbal stimuli. HEENT: Oropharynx is moist. Poor dentition. Eye examination shows pink conjunctivae ands white sclerae. Neck: Examination shows no obvious thyromegaly or thyroid tenderness. Cardiovascular: She sounds to be in a regular rate and rhythm. She has no obvious murmurs. She has no S3. She has no lower extremity edema. Chest Examination: Clear to auscultation bilaterally. She has no increased work of breathing. Abdomen: Soft, nontender. She has a marked area of erythema and ecchymoses in the right hip. Markedly large area of erythema and ecchymoses in the right hip. Skin Examination: Again, ecchymoses and erythema on the right hip as well as some necrotic circular areas on her left anterior thigh. Neurologic and psychiatric exams cannot be performed secondary to the patient's current intubated status. PERTINENT DATA: Chest x-ray shows essentially unremarkable findings. Low lung volumes. No infiltrates. She had an abdomen and pelvis CT showing extensive right flank, buttock, and upper thigh edema, consistent with cellulitis, severe fatty liver, fluid distention of the stomach suggesting gastroparesis. Her EKG on presentation on the demonstrates sinus rhythm, rate of 116 beats per minute. No ischemic changes. EKG tracing on the 4th at 1840, sinus rhythm, no clear evidence of ischemic changes. Next EKG tracing from the 4th at 1808, sinus rhythm. She does have some J-point elevation in the anterior septum but no apparent reciprocal changes and somewhat diffuse J-point elevation also noted in the high lateral leads. Next EKG occurring on the at 4:12 shows sinus tachycardia, rate of 105 beats per minute, sinus rhythm, nonspecific flattening of the ST-T waves. Final EKG tracing on the at 9:43, sinus rhythm, low voltage, no ischemic changes. All tracings were reviewed by me. White count is 62. This is up from 46 yesterday. Hematocrit is 44, platelet count 432,000. She has a slight bandemia with no left shift. Her INR is 2.5. Her ABG shows a pH of 6.95, pCO2 of 24, PO2 of 195. Her lactate is 8.6. Her sodium is 126, potassium is 5.7, BUN 56, creatinine is 4. Her CK is greater than 20,000, her troponin is 638, with an MB of 262, and an index of 1.1. Her lactate on her blood, not on the ABG, was 9.3. Her albumin is 1.4. ASSESSMENT: Ms. Horn is a 49-year-old female with septic shock with multiorgan failure (respiratory failure, global hypoperfusion, kidney failure). PLAN: Echocardiogram is currently pending. She has a reported history of IV drug use so certainly could have some endocarditis present. Given the markedly abnormal labs and evidence for shock liver, acute kidney injury, respiratory failure, as well as hemodynamic instability, I do not have acute recommendations. Her troponin is 638 which is up from 12 yesterday. I believe this is a sign of global hypoperfusion and not acute coronary syndrome. Her EKGs have not been evident for any of this. The patient continues to use IV drugs. UDS was positive on October 11. We will review the echocardiogram but at present, the only recommendation I have is continued supportive care. ADDENDUM: Her echo shows a severe reduction in EF of 20-25%. She does not have any clear evidence of endocarditis. Wall motion abnormalities could be suggestive of Takotsubo, however past echoes have also had suggestion of wall motion abnormalities due to CAD. Regardless, from a CV standpoint I would recommend supportive care with no acute CV interventions warranted at this time. She is on high dose pressors likely due to septic shock. cc: Fadi Dhaliwal MD [facility]
--- NOTE | 2019-10-13 15:00 | GENERAL SURGERY CONSULTATION ---
DATE: 10/13/2019 Ms. Horn is an unfortunate 49-year-old female who presented to the emergency department on the 3rd with nausea, vomiting and fever. She does report a fall striking her right hip recently and a bruise that has occurred there. I do believe she has a history of hip injections possibly with illicit drugs. PAST MEDICAL HISTORY: Pertinent for hypertension, history of herniated disk, chronic depression, history of bilateral tubal ligation, . FAMILY HISTORY: Not known. SOCIAL HISTORY: She cannot communicate now since she is on the ventilator, but she does have a history of alcohol and IV methamphetamine drug use. She does have a long history of smoking as well. REVIEW OF SYSTEMS: Not obtainable currently. PHYSICAL EXAM: She has a temperature of 96.3 degrees, heart rate is 103, respiratory rate 32, blood pressure is [*]. She is on the ventilator. She has a large ecchymotic area in the right hip. There is no fluctuance noted, just is quite indurated. No particular redness, just some ecchymosis. LABORATORY: White count is up to 62,000, hemoglobin 16, hematocrit 44. Pro time 27.5, INR 2.5, pH is 6.95, pCO2 24, PO2 195. Her lactate level is 8.6. She is on 100% FiO2. BUN is 56, creatinine 4.0. Her LFTs have jumped up. CPK is over 20,000. Troponin is over 638. ASSESSMENT: This lady has ecchymosis of her right hip. Her CT scan does not show an obvious abscess. She has cellulitis and edema. She certainly has a picture of septic shock. We will continue with broad-spectrum antibiotics. Even though no discrete abscess is noted, the only consideration would be aspiration of her right hip area with a needle for culture purposes, even though she is covered quite well with broad-spectrum antibiotics. There is no obvious abscess that would lead us to the operating room and she is not hemodynamically stable to allow that at this time anyway. I will continue to follow along. cc: Damion Silva MD
--- NOTE | 2019-10-13 15:09 | ECHO REPORT ---
ORDER DATE: 10/13/2019 INDICATION: Sepsis. FINDINGS: This is a very difficult study. Poor quality 2 dimensional images. The patient is on a ventilator. 1. Right atrium appears normal in size. 2. Mild tricuspid regurgitation. RV systolic pressure 30. 3. There is reduced RV systolic function. 4. No significant pulmonic insufficiency. 5. Normal left atrial size with a dimension of 3.3 cm. 6. No mitral valve prolapse. Mild mitral regurgitation. No mitral stenosis . 7. Normal LV size, end-diastolic dimension of 3.4 cm. Moderate left ventricular hypertrophy with posterior and interventricular septal wall thickness 1.4 and 1.5 cm respectively. LV systolic function appears to be reduced. Estimated ejection fraction of 20 to 25 percent. There appears to be wall motion abnormalities that are somewhat global but more prominent in the apical, more distal and apically located segments circumferentially. The base appears more contractile. This may indicate a degree of the stress induced cardiomyopathy but endocardial borders are difficult to visualize. Notably, the patient did have a reduced ejection fraction in December 2018 with an EF of 40 to 45 percent and wall motion abnormalities on that study suggestive of coronary disease. 8. The aortic valve appears to open reasonably well with no evidence of stenosis or insufficiency. 9. Aorta appears normal in visualized segments. 10. There is a small predominantly anterior located pericardial effusion with no evidence of tamponade physiology. cc: Fadi Dhaliwal MD
--- NOTE | 2019-10-13 15:11 | CONSULTATION ---
DATE OF CONSULTATION: 10/13/2019 CHIEF COMPLAINT: Evaluation for respiratory failure and shock, sepsis, in a patient in the intensive care unit. HISTORY OF PRESENTING ILLNESS: This is a 49-year-old female admitted on October 10 with nausea and vomiting and acute renal failure, hyponatremia, SVT, and during her hospitalization course eventually she became more septic in shock, had cellulitis and became unstable. Sent to the unit, was placed on assist-control ventilation and on pressors, refractory shock. I started Solu Cortef empirically. PAST MEDICAL HISTORY: As above and includes also drug abuse, cellulitis, depression, herniated disk, hypertension. PAST SURGICAL HISTORY: section. FAMILY HISTORY: Hypertension, diabetes. SOCIAL HISTORY: Positive for alcoholism and suspicion for drug use. REVIEW OF SYSTEMS: As detailed in history of presenting illness, otherwise noncontributory. ALLERGIES: Morphine. MEDICATIONS IN THE HOSPITAL: Reviewed, and they include clindamycin, Levophed, hydrocortisone, Solu-Cortef, Dilaudid, epinephrine, phenylephrine, and vasopressin, a bicarb drip. Diprivan was kept because the patient needs more than anything now sedation and peace of mind given the refractory picture she is in and the dire prognosis. PHYSICAL EXAMINATION: Vital Signs: Seen. Head and neck exam: Trachea midline. ET tube in place. Chest: Reduced entry. Cardiac: S1, S2. Abdomen: Exam is slightly distended. Reduced bowel sounds. Lung examination: +2 pedal edema. Neurologic: Sedated. LABORATORIES AND INVESTIGATIONS: Creatinine is 4.0, potassium is 5.7. CMP seen. WBC 62.26, platelets 432,000. The pH is 6.95 despite bicarb, CO2 24, and PO2 was 195 on assist-control ventilation rate 15, FiO2 100%, tidal volume 550, PEEP of 5. Troponin T high sensitivity is elevated, could be because of acute renal failure. Cardiology is consulted. Chest x-ray showed ET tube in place. Low lung volumes but no acute disease on the chest x-ray. ASSESSMENT AND PLAN: A 49-year-old female with: 1. Acute respiratory failure, we are titrating ventilator settings and closely monitoring her clinical and lab responses for oxygenation. 2. Septic shock, likely secondary to cellulitis. She has refractory shock and she is on multiple pressors and we are titrating them all and monitoring her clinical responses in ICU setting. 3. Continue current antibiotics and monitor. We are monitoring her labs and clinical responses. 4. Acute renal failure. She is not a candidate for dialysis given the refractory nature of her shock. Nephrology is following. 5. Cardiology seen. 6. Metabolic acidosis, severe and refractory and given bicarb. 7. Poor prognosis. Critical care time 1 hour and 5 minutes. cc: Raul Duque MD
[2019-10-13 15:44] VITALS: BP 37/31
--- NOTE | 2019-10-13 16:13 | GASTROENTEROLOGY CONSULTATION ---
DATE: 10/13/2019 REASON FOR CONSULT: Upper GI bleed, hematemesis. HISTORY OF PRESENT ILLNESS: Ms. Horn is a 49-year-old female who came to the ED on 10/10 with complaints of nausea, vomiting, abdominal pain and weakness. The patient is currently in the ICU. She is on a mechanical ventilator and sedated. Unable to gather any history from the patient. History gathered from the medical records and from the nursing staff. According to the records, patient also had some fever when she came. Patient had a recent fall and she fell on the right side of the hip and has a bruise. The patient's hemoglobin and hematocrit on admission were 19.9 and 55.3, currently they are 16.0 and 44.8. The patient does have an NG tube and the drainage from the NG tube looks like coffee ground drainage. The patient's blood cultures have been negative. The patient does have some cellulitis on the right side of the abdomen. The patient has +2 pitting edema in the lower extremities. PAST MEDICAL HISTORY: Hypertension, herniated disk, chronic depression, alcohol, drug and tobacco abuse. PAST SURGICAL HISTORY: Hysterectomy, bilateral tubal ligation, C-sections. FAMILY HISTORY: No significant GI malignancies. ALLERGIES: Allergic to morphine. SOCIAL HISTORY: As per records, patient does have a history of alcohol abuse as well as meth abuse and history of smoking. HOME MEDICATIONS: Omeprazole 40 mg daily, Klonopin 1 mg twice a day, Cymbalta 60 mg p.o. bedtime, Lyrica 100 mg p.o. 3 times a day, vitamin D2 49878 units p.o. every 7 days, amlodipine 5 mg p.o. daily, trazodone 100 mg p.o. at bedtime as needed. REVIEW OF SYSTEM: A 12 point review of system was unable to gather, patient is on a mechanical ventilator, sedated. PHYSICAL EXAMINATION: Vital Signs: Temperature 96.3 degrees, pulse 103, respirations 32, blood pressure 91/56, oxygen saturation 98% on mechanical ventilator. The patient's weight is 233 pounds. Her BMI is 36.6 kg/m2. General: Patient is on a mechanical ventilator, sedated, unable to assess. HEENT: Pale conjunctivae. No icterus. PERRL, NG tube in place. Neck: Supple. Lungs: Decreased breath sounds heard in the anterior chandler. Cardiovascular: Patient is tachycardic and tachypneic. Abdomen: Obese, soft. Cellulitis on the right side of the abdomen. Hypoactive bowel sounds heard in all 4 quadrants. Extremities: No clubbing. No cyanosis. 2+ pitting edema in the lower extremities. Neurologic: Unable to assess. Patient on a mechanical ventilator. LABS: WBC 62.26, RBC 5.56, hemoglobin is 16.0, hematocrit is 44.8, platelet count is 432,000. PT is 27.5, INR is 2.47. The patient has no new chemistries. Her plasma lactate is 5.1. Sodium is 122, potassium is 4.4, chloride is 88, carbon dioxide 12, anion gap is 22, BUN is 57, creatinine is 3.7, glucose 85, calcium 7.4, total bilirubin is 1.03, AST is 5,529, ALT is 2,056, alkaline phosphatase is 100, albumin is 1.1, and plasma lactate is 5.1. Urinalysis had shown protein of 70, trace of ketones, small amount of blood, trace of leukocytes. Toxicology report was presumptive positive for urine amphetamines. IMAGING: Chest x-ray has shown good support of tube placement. Echocardiogram has shown ejection fraction of 20 to 25%. Abdominal x-ray showed no change from the prior. Abdomen and pelvis CT has shown extensive right flank, buttock, and upper thigh edema compatible with cellulitis. Severe fatty liver disease. Moderate fluid distention of the stomach, reflect gastroparesis. IMPRESSIONS AND PLAN: 3. Fatty liver. 4. Gastroparesis. 5. Acute renal failure. 6. Leukocytosis. 7. Hyponatremia. 8. Hematemesis 9. Cellulitis 10. Respiratory failure 11. Sepsis 12. Acute Renal failure 13. Recent fall PLAN: Ms. Horn is a 49-year-old female with a history of chronic depression. GI has been consulted for a GI bleed. The patient's NG tube drainage is showing coffee-ground drainage but no active bleeding. The patient's hemoglobin and hematocrit currently are 16.0 and 44.8. The patient is on PPIs twice a day. She is receiving antibiotics, clindamycin and Zosyn. The patient is currently intubated. We will continue to monitor her H & H and follow the plan of care per PCP. This plan was discussed with Dr. Keen. Thank you for your consult. Please call us for any further questions or concerns. Dictated by TYLER Wilcox for Navid Keen MD cc: Navid Keen MD [facility]
--- NOTE | 2019-10-13 18:36 | PROGRESS NOTE ---
DATE: 10/13/2019 CODE NOTE: At about 1700, I got a call from the attending nurse that Ms. Horn was not baby was not breathing over the ventilator. The pupils were blown, she was not responding and she was stiff like rigor mortis. I went to evaluate her. She did not have any pulse. She did not have any blood pressure. She did not have any gag reflex. Pupils where about 4 to 5 mm dilated and were nonreactive. She was not showing any signs of vitality. I called the son, Quinten, at and I was updating him about the critical nature of the mom and the fact that I thought the mom was . Just as we were discussing his mom's condition, the patient, who is the mom Ms. Horn, went into cardiac arrest, became asystole and told him to come to the hospital stat. I went to attend to the code. The code started at about at 1727 with some asystole and no pulse. CPR was started right away. The patient was already intubated. Respiratory therapy was there. Most of the ICU nurses were also there. A total of 16 epi were given intermittently, 3 bicarb were given and 1 calcium chloride was also given at some point. Unfortunately, at every time pulse check was done Ms. Horn remained with no pulse and asystole. At 1800, I was notified that the family members where in the room. I went there and spoke to them extensively and I told them that Ms. Horn has been going through cardiac resuscitation for more than 30 minutes and that there has not been any response and from all clinical indications, Ms. Horn is . I offered my support and answered all their questions. When I came back to the bedside resuscitation was still ongoing. Unfortunately, after multiple efforts, there was still no pulse. Ms. Horn remained with no signs of vitality. At 8:02 I called the code off and Ms. Horn was pronounced . At that time, she still had no pulse. She had no blood pressure, had no cardiac activity. She was not showing any respiratory efforts on her own. She did not have any cranial nerve activity. Her pupils were 5 mm blown, they were nonreactive. She did not have any gag. She did not have any corneal reflex. She did not show any signs of cortical or subcortical activity. She was subsequently pronounced . Family members are aware. cc: Rudy Escalante MD
[2019-10-13] MEDS ORDERED: CALCIUM CHLORIDE SYRINGE IV ONE (19:09)
[2019-10-13] MEDS ORDERED: EPINEPHRINE SYRINGE IV ONE (19:09)
[2019-10-13] MEDS ORDERED: SODIUM BICARBONATE 8.4% IV ONE (19:10)
--- NOTE | 2019-10-13 19:26 | DISCHARGE SUMMARY ---
ADMISSION DATE: 10/11/2019 DISCHARGE DATE: 10/13/2019 TIME OF : 18:02. CONSULTATION DURING THIS ADMISSION: Pulmonary Medicine was consulted, patient was seen by Dr. Duque. Surgery was consulted, patient was seen by Dr. Silva. Cardiology was consulted, patient was seen by Dr. Fadi Dhaliwal. GI was consulted, patient was seen by Dr. Keen. INVASIVE PROCEDURE DONE DURING THIS ADMISSION: 1. Endotracheal intubation was performed by Dr. Li. 2. Cardiac resuscitation was also done between 17:27 until 18:02. IMAGING STUDIES OF SIGNIFICANT: 1. A chest x-ray was negative. 2. A CT scan of the abdomen and pelvis showed an extensive right flank, buttock, and upper thigh edema compatible with cellulitis. Severe fatty liver. Moderate fluid distention of the stomach. This may reflect gastroparesis. 3. KUB showed no significant change. 4. Repeat chest x-ray shows low lung volumes. No infiltrates. 5. An echocardiogram showed an ejection fraction of 20 to 25%. ADMISSION DIAGNOSES: 1. Acute renal failure. 2. Hyponatremia. 3. Hemoconcentration. 4. Hypertension. DIAGNOSIS AT THE TIME OF : 1. Overwhelming sepsis leading to septic shock complicated with multiorgan failure. 2. Extensive right flank, buttock, and upper thigh cellulitis as a result of recreational drug injection. Unsure if patient did develop necrotizing fascitis. 3. Shock liver on background of severe fatty liver disease. 4. Acute kidney injury secondary to acute tubular necrosis. 5. Severe lactic acidosis leading to high anion gap metabolic acidosis due to generalized hypoperfusion from septic shock. 6. Comatose due to severe sepsis-induced and hypoperfused encephalopathy. 7. Elevated troponins with echocardiogram showing ejection fraction of 20%, concerning for stress cardiomyopathy. However, an underlying coronary artery disease could not be entirely ruled out. 8. Gastrointestinal bleed. 9. Acute hypoxemic respiratory failure. 10. Recreational drug use and abuse with urine toxicology positive for amphetamines. PRESENTING COMPLAINT: Nausea and vomiting. HISTORY OF PRESENTING COMPLAINT: Ms. Horn is a 49-year-old female who presented initially to [place] because of generalized weakness, cramping, fever of 102, and pain to the right hip. Apparently, it was noted that she went to use the restroom, fell, and then hit the right hip. However, when I spoke to her yesterday she did tell me that that was an injection of amphetamine, that started the pain and swelling. At any point, she was evaluated in [place] and was found to have extreme renal abnormality, WBC of 52.09, very hemoconcentrated. She was transferred to [facility] for higher level of care. Ms. Horn was initially admitted to the step-down unit. However, yesterday in the evening, she became extremely decompensated. She became hypotensive, so I put in a right femoral central line. She got 3 L bolus and was started on fluid resuscitation, broad-spectrum IV antibiotics, and was transferred from the step-down unit to ICU. Unfortunately, this morning she continued to decompensate, so she was intubated. She remained fairly stable. However, she did not have any viable blood pressure for most of her stay in the ICU. This evening I was notified by the nurse that she was not showing any signs of vitality. When I went to evaluate her, she continued to be nonresponsive. She was not on any sedation yet. She was not responsive. She was found to show no signs of vitality. I spoke with the family members. Just during my call with the family, Ms. Horn coded. This morning Ms. Horn was also seen by multiple subspecialties including Cardiology, Pulmonary Medicine, Surgery, and Anesthesia. Unfortunately, Nephrology could not get to see her until today. The patient was also seen by GI. After more than 40 minutes of CPR and ACLS protocol, Ms. Horn continued showing no signs of vitality and she was pronounced . Family members were notified. cc: Rudy Escalante MD
[2019-10-13] MEDS ORDERED: VANCOMYCIN 1 GM/NS 1 GM/250 ML IVPB IV SCH ×2 (20:00)
--- NOTE | 2019-10-14 08:02 | EKG Report ---
Test Performed on : 10/13/2019 00:46:04 AM Test Reason : ICU. NO EKG ORDER FOR MUSE Blood Pressure : / mmHG Vent. Rate : 091 BPM Atrial Rate : 091 BPM P-R Int : 158 ms QRS Dur : 084 ms QT Int : 306 ms P-R-T Axes : 066 099 038 degrees QTc Int : 376 ms Normal sinus rhythm. with sinus arrhythmia. Low voltage QRS Lateral infarct , age undetermined Abnormal ECG When compared with ECG of 12-OCT-2019 18:40, (Unconfirmed) ST no longer elevated in Lateral leads Nonspecific T wave abnormality, worse in Inferior leads Nonspecific T wave abnormality now evident in Lateral leads QT has shortened Confirmed by Rajeev CHILDERS, Flavio Singleton ([id number]) on 10/15/2019 9:39:43 AM
== END 2019-10-13 18:02 | disposition expired | DRG 871 ==
LOC: P.ED 15:18 → SUATTDRO 15:19 → 2N 15:19 → ICU 10-12 19:18
PROVIDERS: ATTEND Internal Medicine